=== PATIENT | female | born 1960 | race Caucasian/White ===

== ENCOUNTER 2020-02-21 14:23 | Inpatient (IN) | payer OTHER ==
[2020-02-21 14:56] LABS: BASO % 0.5 % (0-2.0); EOS % 0.2 % (0-4.5); HEMATOCRIT 43.3 % (32.4-45.2); HEMOGLOBIN 14.2 GM/dL (10.7-15.3); LYMPH % 17.2 % (8-40); MCH 28.2 pg (25.7-33.7); MCHC 32.9 g/dl (32.0-36.0); MEAN CELL VOLUME 85.6 fl (80-96); MEAN PLT VOLUME 8.9 fl (7.5-11.1); NEUT % 77.1 % (42.8-82.8); PLATELET COUNT 309 K/MM3 (134-434); RBC 5.05 M/mm3 (3.60-5.2); RDW 14.2 % (11.6-15.6)
[2020-02-21] MEDS ORDERED: METOCLOPRAMIDE HCL INJECTION 10 MG/2 ML VIAL IVPUSH ONE (15:01)
[2020-02-21] MEDS ORDERED: MECLIZINE HCL 25 MG TABLET (FP) PO ONE (15:02)
[2020-02-21] MEDS ORDERED: ASPIRIN 81 MG CHEWABLE TABLETS PO ONE (15:03)
[2020-02-21 15:05] LABS: INR 1.05 (0.83-1.09); PROTHROMBIN TIME (PATIENT) 12.4 SEC (9.7-13.0)
[2020-02-21] MEDS ORDERED: MECLIZINE HCL 25 MG TABLET (FP) ONE (15:08)
[2020-02-21] MEDS ORDERED: ASPIRIN 81 MG CHEWABLE TABLETS ONE (15:08)
[2020-02-21] MEDS ORDERED: METOCLOPRAMIDE HCL INJECTION 10 MG/2 ML VIAL ONE (15:08)
[2020-02-21] MEDS ORDERED: SODIUM CHLORIDE 1,000 ML IV SCH (15:15)
[2020-02-21 15:31] LABS: ALBUMIN 4.2 g/dl (3.4-5.0); ALK PHOS 56 U/L (45-117); ANION GAP 10 MMOL/L (8-16); BILIRUBIN,TOTAL 0.5 mg/dL (0.2-1); BLOOD UREA NITROGEN 15.5 mg/dL (7-18); CALCIUM 10.3 mg/dL (8.5-10.1); CHLORIDE 99 mmol/L (98-107); CO2 28 mmol/L (21-32); CREATININE 0.6 mg/dL (0.55-1.3); GLUCOSE,RANDOM 229 mg/dL (74-106); POTASSIUM 3.8 mmol/L (3.5-5.1); SGOT/AST 22 U/L (15-37); SGPT/ALT 22 U/L (13-61); SODIUM 138 mmol/L (136-145); TOT PROT 7.8 g/dl (6.4-8.2)
[2020-02-21 15:33] LABS: CHOLESTEROL 120 mg/dL (50-200); HDL CHOLESTEROL 58 mg/dL (40-60); LDL CHOLESTEROL (ONLY SJRH) 51 mg/dL (5-100); TRIGLYCERIDES 77 mg/dL (0-150)
[2020-02-21 15:41] LABS: ANISOCYTOSIS 0; MACROCYTOSIS 0; PLATELET ESTIMATE NORMAL
--- NOTE | 2020-02-21 15:42 | PDOC ---
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 Pt is accompanied by her son, who states the pt complained of vertigo last night starting around 7 pm. She did not improve, and the son noticed L-sided facial drooping today, prompting call to EMS. Pt recently had a CVA and was admitted to [facility] without intervention, and stayed in rehab for a few months. ROS is limited due to physical condition, but pt denies cough, vomiting, diarrhea, syncope, chest pain. Allergies: NKDA PCP: [facility] clinic Social: Pt denies any cigarette, alcohol, or drug use. No recent travel or known sick contacts. Pt tested antibody covid+ last month per son, but was asymptomatic. Surgical: no relevant history. Family: no relevant history. 02/21/20 18:25 02/21/20 18:56 <Anh Dunn - Last Filed: 02/21/20 19:05> <Ely Lovell - Last Filed: 02/24/20 10:01> - General Chief Complaint: CVA/TIA Stated Complaint: SLURRED SPEECH Time Seen by Provider: 02/21/20 14:36 Past History - Travel History Traveled outside of the country in the last 30 days: No Close contact w/someone who was outside of country & ill: No - Medical History COPD: No Diabetes: Yes Psychiatric Problems: (dementia?) - Reproductive History Is Patient Now?: No - Psycho-Social/Smoking History Smoking History: Never smoked - Substance Abuse Hx (Audit-C & DAST Scrn) How often the patient has a drink containing alcohol: Never Score: In Men: 4 or > Positive; In Women: 3 or > Positive: 0 Screen Result (Pos requires Nsg. Audit-10AR): Negative In the last yr the pt used illegal drug/Rx for NonMed reason: No Score: Yes response is considered Positive: 0 Screen Result (Positive result requires Nsg. DAST-10): Negative <Anh Dunn - Last Filed: 02/21/20 19:05> <Ely Lovell - Last Filed: 02/24/20 10:01> - Medical History Allergies/Adverse Reactions: Allergies Allergy/AdvReac Type Severity Reaction Status Date / Time No Known Allergies Allergy Verified 02/21/20 15:05 Home Medications: Ambulatory Orders Aspirin [ASA -] 81 mg PO DAILY 02/21/20 Atorvastatin Ca [Lipitor] 40 mg PO HS 02/21/20 Benztropine Mesylate 0.5 mg PO DAILY 02/21/20 Clopidogrel Bisulfate [Plavix -] 75 mg PO DAILY 02/21/20 Dapagliflozin Propanediol [Farxiga] 10 mg PO DAILY 02/21/20 Insulin Degludec [Tresiba Flextouch U-200] 40 unit SQ DAILY 02/21/20 Lisinopril/Hydrochlorothiazide [Lisinopril-Hctz 20-25 mg Tab] 1 each PO DAILY 02/21/20 Risperidone 3 mg PO DAILY 02/21/20 Sertraline HCl 50 mg PO DAILY 02/21/20 Sitagliptin Phos/Metformin HCl [Janumet 50-1,000 mg Tablet] 1 each PO BID 02/21/20 Neuro Specific PMHX - Complaint Specific PMHX Glaucoma: No Herniated Disk: No Laminectomy: No Migraine: No Multiple Sclerosis: No Neuropathy: No TIA: Yes (CVA) <Anh Dunn - Last Filed: 02/21/20 19:05> Review of Systems - Review of Systems Able to Perform ROS?: No (clinical condition) Is the patient limited Irish proficient: No <MonaAnh - Last Filed: 02/21/20 19:05> *Physical Exam - Vital Signs Last Vital Signs Temp Pulse Resp BP Pulse Ox 98.4 F 80 16 117/43 L 100 02/21/20 15:02 02/21/20 15:02 02/21/20 15:02 02/21/20 15:02 02/21/20 15:02 - Physical Exam Vitals stable, pt afebrile. Pt in NAD, normal body habitus. Pt alert and oriented x3. L sided lower facial drooping (sparing eyes). R arm pronator drift. Muscular strength intact in all extremities. No uvular or tongue deviation. Horizontal and vertical nystagmus present b/l eyes. No inattention/neglect, no visual field deficits. No midline spinal tenderness, step-offs, or crepitus. Head normocephalic, atraumatic. Eyes PERRLA, EOMI. Oropharynx without erythema or exudates, no LAD b/l. No nasal congestion. Hearing intact. Clear heart sounds, S1/S2, no JVD, b/l pedal edema, or heart murmur. Clear lung sounds, no respiratory distress, wheezes, crackles, or accessory muscle use. No abdominal or CVA tenderness to palpation, no rebound, no guarding. Abdomen soft, non-distended, and with normoactive bowel sounds. Skin without jaundice or rash. 02/21/20 18:57 <Anh Dunn - Last Filed: 02/21/20 19:05> - Vital Signs Last Vital Signs Temp Pulse Resp BP Pulse Ox 98 F 69 17 146/78 95 02/24/20 06:59 02/24/20 06:59 02/24/20 06:59 02/24/20 06:59 02/24/20 06:00 <Ely Lovell - Last Filed: 02/24/20 10:01> NIH Stroke Scale - Last Known Well Date/Time & Onset Date Last Known Well: 02/20/20 Time Last Known Well: 19:00 - Initial Evaluation Level of consciousness: Alert Ask patient the month and their age: Answers both correctly Ask patient to open & close eyes; make fist and let go: Obeys both correctly Best gaze (horizontal eye movement): Normal Visual field testing: No visual field loss Facial paresis (Show teeth/raise eyebrows/close eyes tight): Partial paralysis (total or near paralysis of lower face) Motor Function: Left Arm: Normal Motor Function: Right Arm: Drift Motor Function: Left Leg: Normal (extends leg 30 degrees for 5 seconds without drift) Motor Function: Right Leg: Normal (extends leg 30 degrees for 5 seconds without drift) Limb Ataxia: No ataxia Sensory(Use pinprick test arms,legs,trunk,face/side to side): Normal Best language (Describe picture, name items, read sentences): No Aphasia Dysarthria (read several words): Mild to moderate slurring of words Extinction and Inattention: No abnormality - Total Score NIH Stroke Scale Score: 4 <Anh Dunn - Last Filed: 02/21/20 19:05> tPA Exclusion Checklist 0-3hr - Time Elapsed Date last known well: 02/20/20 Time last known well: 19:00 Elaspsed time: 1 Day(s) and 0 Hour(s) and 5 Minutes - Thrombolytic Therapy Candidate Is the patient eligible for Thrombolytic Therapy?: No - Exclusion Criteria 0-3hr SBP greater than 185 or DBP greater than 110mmHg despite tx: No Recent IC/spinal surgery,head trauma or stroke w/in last 3mo: No Hx of previous IC hemorrhage, IC neoplasm, AVM or aneurysm: No Active internal bleeding: No Blding diathesis(low plt ct, inc PTT,INR>1.7 or use of NOAC): Yes Symptoms suggest subarachnoid hemorrhage: No CT demonstrates multilobar infarct(>1/3 cerebral hemiphere): No Arterial puncture at noncompressible site in previous 7 days: No Blood glucose concentration less than 50mg/dL (2.7mmol/L): No - Relative Exclusion Criteria 0-3h Care team unable to determine eligibility: No IV/IA thrombolysis/thrombectomy @ another hosp prior arrival: No Life expectancy <1yr/severe co-morbid illness/MEETING SPECIALIST on admit: No : No Patient/family refused: No Stroke severity too mild (non-disabling): No Recent acute WA (w/in previous 3 months): No Seizure at onset with postictal residual neuro impairments: No Major surgery or serious trauma w/in previous 14 days: No Recent GI or hemorrhage (w/in previous 21 days): No - Ineligibility reason(s) Reasons No tPA given: Outside of window - delayed arrival, See reason(s) noted above <Anh Dunn - Last Filed: 02/21/20 19:05> Critical Care Time/MDM Note Total Critical Care Time: 35 Critical Care Statement: The care of this patient involved high complexity decision making to prevent further life threatening deterioration of the patient's condition and/or to evaluate & treat vital organ system(s) failure or risk of failure. - Medical Decision Making Note: Pt was seen at bedside, also will be seen by attending Dr. Lovell. Pt presenting with nystagmus, vertigo, acute FNDs, concerning for brainstem/cerebellar CVA. Bedside BGM 200s CBC, CMP, cardiac work-up, lipid profile, non-contrast CT head Provided IV reglan, normal saline 45 cc/hr, 50 mg PO meclizine for improvement of vertigo. Will continue to reassess pt and monitor for symptomatic improvement. ECG: NSR, intervals WNL. No TWIs or significant ST segment changes. No significant changes from prior ECG. 02/21/20 18:58 CBC with elevated WBC (reactive?) CMP WNL Trop <.02 with no new EKG abnormalities Chest x-ray with no acute pathology UA appears contaminated, no nitrites or LE consistent with UTI CT head without acute pathology Discussed case with Neurology (Dr. Orozco). Pt took home meds this AM (plavix, statin), provided full dose of aspirin. Dr. Orozco will see pt inpatient. Suggested CTA of brain and neck. Pending CTA reads. Pt admitted to hospitalist service. 02/21/20 19:01 Signed out f/u results with Dr. Cleveland (night team) 02/21/20 19:05 <Anh Dunn - Last Filed: 02/21/20 19:05> Discharge - Discharge Information Problems reviewed: Yes - Admission Yes <Anh Dunn - Last Filed: 02/21/20 19:05> <Ely Lovell - Last Filed: 02/24/20 10:01> - Discharge Information Clinical Impression/Diagnosis: Cerebrovascular accident (CVA) Qualifiers: CVA mechanism: unspecified Qualified Code(s): I63.9 - Cerebral infarction, unspecified Condition: Guarded
--- NOTE | 2020-02-21 16:28 | PDOC ---
Documentation entered by Kate Sanders SCRIBE, acting as scribe for Ely Lovell MD. Ely Lovell MD: This documentation has been prepared by the amritibeTommy Ana, SCRIBE, under my direction and personally reviewed by me in its entirety. I confirm that the documentation accurately reflects all work, treatment, procedures, and medical decision making performed by me. Attending Attestation - Resident Resident Name: Anh Dunn - ED Attending Attestation I have performed the following: I have examined & evaluated the patient, The case was reviewed & discussed with the resident, I agree w/resident's findings & plan, Exceptions are as noted - HPI HPI: 02/21/20 15:17 Patient is a 59 year old female with a significant past medical history of diabetes and hypertension who presents to the ED with dizziness since 7PM last night a/w n/v. Denies any preceding trauma. As per son, facial droop began this morning. Denies infectious complaints. As per son, patient had CVA a few months ago with some residual R sided weakness and at that time she had a facial droop that was worse that it currently is but at baseline patient does not have a droop and had resolved after her prior CVA. Allergies: NKDA - Physicial Exam PE: 02/21/20 15:20 General: non-toxic appearing HEENT: NCAT Neuro: L facial droop, strength 4/5 RUE, +horizontal and vertical nystagmus - Critical Care Time Total Critical Care Time: 30 Critical Care Statement: The care of this patient involved high complexity decis ion making to prevent further life threatening deterioration of the patient's condition and/or to evaluate & treat vital organ system(s) failure or risk of failure. - Medical Decision Making 02/21/20 15:29 59 yo F concern for posterior circulation CVA, patient outside TPA window as last known well was last night. Plan: -labs -cxr -CT head code chambers, no evidence of hemorrhage or infarct -CTA head and neck -pt to be seen by neurology as inpatient, case discussed with neurology watermelon inspector -admit This clinical encounter is taking place during a federal and state health care emergency attributable to the novel [place] Virus pandemic. The [employer] of the Department of Health and Human Services has declared, pursuant to the Public Health Service Act 319F-3 (42 U.S.C. 247d-6d), that a covered persons activities related to medical countermeasures against COVID-19 will be immune from liability under Federal and State law. Discharge - Discharge Information Problems reviewed: Yes Clinical Impression/Diagnosis: Cerebrovascular accident (CVA) Qualifiers: CVA mechanism: unspecified Qualified Code(s): I63.9 - Cerebral infarction, unspecified - Follow up/Referral - Patient Discharge Instructions - Post Discharge Activity
[2020-02-21 16:43] LABS: EPI CELLS >36 /uL (0-25.1); HYALINE CASTS 1 /uL (0-3.1); PH,URINE 6.5 (5.0-8.0); URINE APPEARANCE CLEAR; URINE BACTERIA 1125 /uL (0-1359); URINE BILIRUBIN NEGATIVE (NEGATIVE); URINE COLOR YELLOW; URINE GLUCOSE (UA) 3+ (NEGATIVE); URINE KETONE TRACE (NEGATIVE); URINE LEUK ESTERASE TRACE (NEGATIVE); URINE NITRITE NEGATIVE (NEGATIVE); URINE PROTEIN NEGATIVE (NEGATIVE); URINE RBC 5 /uL (0-23.9); URINE UROBILINOGEN 0.2 mg/dL (0.2-1.0); URINE WBC 72 /uL (0-25.8)
[2020-02-21] MEDS ORDERED: ACETAMINOPHEN 325 MG TABLET (FP) PO PRN (16:54)
--- NOTE | 2020-02-21 17:12 | HP ---
CHIEF COMPLAINT: left facial droop, dizziness PCP: [facility] HISTORY OF PRESENT ILLNESS: 59 year old female with a significant past medical history of diabetes, htn, previous cva a couple months ago presented to the ED this morning after son noted a left facial droop. He reported pt having dizziness last night which didnt resolve this am. Denies any preceding trauma, no falls. As per chart, pt's son reported some residual right sided weakness after her last stroke. No cp, sob, n/v/f/c; had some nausea/vomiting with dizziness this am Denies any fevers, chills, cough or sob ER course was notable for: (1) Pos vertical nystagmus (2) Pos dizziness (3) Pos wbc 21k Recent Travel: Denies PAST MEDICAL HISTORY: as above, ?psych hx PAST SURGICAL HISTORY: denies Social History: Smoking: denies Alcohol: denies Drugs: denies Allergies No Known Allergies Allergy (Verified 02/21/20 15:05) HOME MEDICATIONS: Home Medications Medication Instructions Recorded Aspirin [ASA -] 81 mg PO DAILY 02/21/20 Atorvastatin Ca [Lipitor] 40 mg PO HS 02/21/20 Benztropine Mesylate 0.5 mg PO DAILY 02/21/20 Clopidogrel Bisulfate [Plavix -] 75 mg PO DAILY 02/21/20 Dapagliflozin Propanediol [Farxiga] 10 mg PO DAILY 02/21/20 Insulin Degludec [Tresiba 40 unit SQ DAILY 02/21/20 Flextouch U-200] Lisinopril/Hydrochlorothiazide 1 each PO DAILY 02/21/20 [Lisinopril-Hctz 20-25 mg Tab] Risperidone 3 mg PO DAILY 02/21/20 Sertraline HCl 50 mg PO DAILY 02/21/20 Sitagliptin Phos/Metformin HCl 1 each PO BID 02/21/20 [Janumet 50-1,000 mg Tablet] REVIEW OF SYSTEMS CONSTITUTIONAL: Absent: fever, chills, diaphoresis, generalized weakness, malaise, loss of appetite, weight change POS DIZZINESS HEENT: Absent: rhinorrhea, nasal congestion, throat pain, throat swelling, difficulty swallowing, mouth swelling, ear pain, eye pain, visual changes POS FACIAL CHANGES CARDIOVASCULAR: Absent: chest pain, syncope, palpitations, irregular heart rate, lightheadedness, peripheral edema RESPIRATORY: Absent: cough, shortness of breath, dyspnea with exertion, orthopnea, wheezing, stridor, hemoptysis GASTROINTESTINAL: Absent: abdominal pain, abdominal distension, nausea, vomiting, diarrhea, constipation, melena, hematochezia GENITOURINARY: Absent: dysuria, frequency, urgency, hesitancy, hematuria, flank pain, genital pain MUSCULOSKELETAL: Absent: myalgia, arthralgia, joint swelling, back pain, neck pain SKIN: Absent: rash, itching, pallor HEMATOLOGIC/IMMUNOLOGIC: Absent: easy bleeding, easy bruising, lymphadenopathy, frequent infections ENDOCRINE: Absent: unexplained weight gain, unexplained weight loss, heat intolerance, cold intolerance NEUROLOGIC: Absent: headache, focal weakness or paresthesias, POS dizziness, ABSENT unsteady gait, seizure, mental status changes, bladder or bowel incontinence PSYCHIATRIC: Absent: anxiety, depression, suicidal or homicidal ideation, hallucinations. PHYSICAL EXAMINATION Vital Signs - 24 hr 02/21/20 15:02 Temperature 98.4 F Pulse Rate 80 Respiratory 16 Rate Blood Pressure 117/43 L O2 Sat by Pulse 100 Oximetry (%) GENERAL: Awake, alert, and OREIENTED X 2, FORGOT YEAR in no acute distress., HEAD: Normal with no signs of trauma. EYES: Pupils equal, round and reactive to light, extraocular movements intact, sclera anicteric, conjunctiva clear. No lid lag. POS HORIZONTAL AND VERTICAL NYSTAGMUS EARS, NOSE, THROAT: Ears normal, nares patent, oropharynx clear without exudate s. Moist mucous membranes. NECK: Normal range of motion, supple without lymphadenopathy, JVD, or masses. LUNGS: Breath sounds equal, clear to auscultation bilaterally. No wheezes, and no crackles. No accessory muscle use. HEART: Regular rate and rhythm, normal S1 and S2 without murmur, rub or gallop. ABDOMEN: Soft, nontender, not distended, normoactive bowel sounds, no guarding, no rebound, no masses. No hepatomegaly or splenomegaly. MUSCULOSKELETAL: Normal range of motion at all joints. No bony deformities or tenderness. No CVA tenderness. UPPER EXTREMITIES: 2+ pulses, warm, well-perfused. No cyanosis. No clubbing. No peripheral edema. LOWER EXTREMITIES: 2+ pulses, warm, well-perfused. No calf tenderness. No peripheral edema. NEUROLOGICAL: POS NYSTAGMUS, POS PRONATOR DRIFT, POS LEFT FACIAL DROOP, GAIT NOT ASSESED PSYCHIATRIC: Cooperative. Good eye contact. Appropriate mood and affect. SKIN: Warm, dry, normal turgor, no rashes or lesions noted, normal capillary refill. Laboratory Results - last 24 hr 02/21/20 02/21/20 02/21/20 02:45 02:45 02:45 WBC 21.0 H RBC 5.05 Hgb 14.2 Hct 43.3 MCV 85.6 MCH 28.2 MCHC 32.9 RDW 14.2 Plt Count 309 MPV 8.9 Absolute Neuts (auto) 16.1 H Neutrophils % 77.1 Neutrophils % (Manual) 71.0 Band Neutrophils % 0.0 Lymphocytes % 17.2 D Lymphocytes % (Manual) 23.0 Monocytes % 5.0 Monocytes % (Manual) 3 L Eosinophils % 0.2 Eosinophils % (Manual) 0.0 Basophils % 0.5 Basophils % (Manual) 1.0 Myelocytes % (Man) 0 Promyelocytes % (Man) 0 Blast Cells % (Manual) 0 Nucleated RBC % 0 Metamyelocytes 1 Hypochromia 0 Platelet Estimate Normal Polychromasia 0 Poikilocytosis 0 Anisocytosis 0 Microcytosis 0 Macrocytosis 0 PT with INR 12.40 INR 1.05 PTT (Actin FS) 29.0 Sodium Potassium Chloride Carbon Dioxide Anion Gap BUN Creatinine Est GFR (CKD-EPI)AfAm Est GFR (CKD-EPI)NonAf POC Glucometer Random Glucose Calcium Total Bilirubin AST ALT Alkaline Phosphatase Total Protein Albumin Triglycerides 77 Cholesterol 120 Total LDL Cholesterol 51 HDL Cholesterol 58 Urine Color Urine Appearance Urine pH Ur Specific [place] Urine Protein Urine Glucose (UA) Urine Ketones Urine Blood Urine Nitrite Urine Bilirubin Urine Urobilinogen Ur Leukocyte Esterase Urine WBC (Auto) Urine RBC (Auto) Urine Casts (Auto) U Epithel Cells (Auto) Urine Bacteria (Auto) Blood Type Antibody Screen 02/21/20 02/21/20 02/21/20 02:45 02:45 04:16 WBC RBC Hgb Hct MCV MCH MCHC RDW Plt Count MPV Absolute Neuts (auto) Neutrophils % Neutrophils % (Manual) Band Neutrophils % Lymphocytes % Lymphocytes % (Manual) Monocytes % Monocytes % (Manual) Eosinophils % Eosinophils % (Manual) Basophils % Basophils % (Manual) Myelocytes % (Man) Promyelocytes % (Man) Blast Cells % (Manual) Nucleated RBC % Metamyelocytes Hypochromia Platelet Estimate Polychromasia Poikilocytosis Anisocytosis Microcytosis Macrocytosis PT with INR INR PTT (Actin FS) Sodium 138 Potassium 3.8 Chloride 99 Carbon Dioxide 28 Anion Gap 10 BUN 15.5 Creatinine 0.6 Est GFR (CKD-EPI)AfAm 116.45 Est GFR (CKD-EPI)NonAf 100.47 POC Glucometer Random Glucose 229 H Calcium 10.3 H Total Bilirubin 0.5 AST 22 ALT 22 Alkaline Phosphatase 56 Total Protein 7.8 Albumin 4.2 Triglycerides Cholesterol Total LDL Cholesterol HDL Cholesterol Urine Color Yellow Urine Appearance Clear Urine pH 6.5 Ur Specific [place] 1.025 Urine Protein Negative Urine Glucose (UA) 3+ H Urine Ketones Trace H Urine Blood Negative Urine Nitrite Negative Urine Bilirubin Negative Urine Urobilinogen 0.2 Ur Leukocyte Esterase Trace Urine WBC (Auto) 72 Urine RBC (Auto) 5 Urine Casts (Auto) 1 U Epithel Cells (Auto) >36 Urine Bacteria (Auto) 1125 Blood Type O NEGATIVE Antibody Screen Negative 02/21/20 14:29 WBC RBC Hgb Hct MCV MCH MCHC RDW Plt Count MPV Absolute Neuts (auto) Neutrophils % Neutrophils % (Manual) Band Neutrophils % Lymphocytes % Lymphocytes % (Manual) Monocytes % Monocytes % (Manual) Eosinophils % Eosinophils % (Manual) Basophils % Basophils % (Manual) Myelocytes % (Man) Promyelocytes % (Man) Blast Cells % (Manual) Nucleated RBC % Metamyelocytes Hypochromia Platelet Estimate Polychromasia Poikilocytosis Anisocytosis Microcytosis Macrocytosis PT with INR INR PTT (Actin FS) Sodium Potassium Chloride Carbon Dioxide Anion Gap BUN Creatinine Est GFR (CKD-EPI)AfAm Est GFR (CKD-EPI)NonAf POC Glucometer 220 Random Glucose Calcium Total Bilirubin AST ALT Alkaline Phosphatase Total Protein Albumin Triglycerides Cholesterol Total LDL Cholesterol HDL Cholesterol Urine Color Urine Appearance Urine pH Ur Specific [place] Urine Protein Urine Glucose (UA) Urine Ketones Urine Blood Urine Nitrite Urine Bilirubin Urine Urobilinogen Ur Leukocyte Esterase Urine WBC (Auto) Urine RBC (Auto) Urine Casts (Auto) U Epithel Cells (Auto) Urine Bacteria (Auto) Blood Type Antibody Screen CT HEAD: NO ACUTE CHANGES LEFT THALAMIC INFARCT, CHRONIC CHRONIC LEFT OCCIPITAL INFARCT CXR: NAPD PER MY INTERPRETATION, FINAL READ PENDING HEAD AND NECK CTA PENDING EKG: NSR@81BPM ASSESSMENT/PLAN: 59 Y/O FEMALE WITH HTN, DM, CVA IN THE PAST ADMITTED WITH ACUTE CVA SYMPTOMS *ACUTE CVA -- OUT OF TPA WINDOW HAD SYMPTOMS SINCE LAST NIGHT LIKELY A POSTERIOR CIRCULATION INFARCT (DIZZINESS, VERTICAL NYSTAGMUS, DIZZINESS) - CHECK MRI BRAIN CT ANGIO PENDING CT HEAD WITHOUT ACUTE CHANGES WAS ALREADY ON PLAVIX AND STATIN, ADDED FULL DOSE ASA PER NEURO RECOMMENDATIONS SPEECH AND SWALLOW EVAL ADMIT TO TELE TO RULE OUT ARRHYTHMIA, EKG WAS NORMAL ASPIRATION AND FALL PRECAUTIONS ANTIEMETICS NEEDED NEURO CHECKS PHYSICAL THERAPY EVAL *HTN - BP ON THE LOW NORMAL SIDE WILL HOLD BP MEDS TO NOT DECREASE BP ACUTELY IN ACUTE CVA SETTING RESTART PRESSURE INCREASES *DM - WILL SWITCH TO LEVEMIR (ON TRESIBA AT HOME), BUT DECREASE DOSE SINCE NOT EATING MUCH CURRENTLY HOLD ORAL AGENTS BGMS WITH ISS *?BIPOLAR - ON ANTIPSYCHOTICS, WILL CONT FOR NOW, PLEASE VERIFY MEDS WITH FAMILY TOMORROW *LEUKOCYTOSIS - STRESS? INFECTION? NO CLEAR SYMPTOMS, BUT UA SLIGHTLY DIRTY START ON ROCEPHIN CHECK URINE CULTURE ?COVID, SWAB SENT OUT, CONT PRECAUTIONS UNTIL RESULTS BACK *DVT PROPHY - SQ HEPARIN, ADD PROTONIX FOR ULCER PROPHY DUE TO MULTIPLE ANTIPLATELET AGENTS FOR CVA O GENTLE HYDRATION DUE TO CONTRAST STUDY TODAY, AND NOT EATING MUCH PO -- PLEASE REASSESS IN AM FOR IVF NEED * Family Medical History Family Hx Diabetes: Father Family Hx Nuerologic Problems: Father (CVA) Problem List - Problem (1) Cerebrovascular accident (CVA) Code(s): I63.9 - CEREBRAL INFARCTION, UNSPECIFIED Qualifiers: CVA mechanism: unspecified Qualified Code(s): I63.9 - Cerebral infarction, unspecified (2) Hypertension Code(s): I10 - ESSENTIAL (PRIMARY) HYPERTENSION (3) Diabetes Code(s): E11.9 - TYPE 2 DIABETES MELLITUS WITHOUT COMPLICATIONS Qualifiers: Diabetes mellitus type: type 2 Visit type - Emergency Visit Emergency Visit: Yes ED Registration Date: 02/21/20 Care time: The patient presented to the Emergency Department on the above date and was hospitalized for further evaluation of their emergent condition. - New Patient This patient is new to me today: Yes Date on this admission: 02/21/20 - Critical Care Critical Care patient: No
[2020-02-21] MEDS ORDERED: PANTOPRAZOLE 40 MG TABLET ONE (17:22)
[2020-02-21] MEDS ORDERED: CEFTRIAXONE 1 GM/50 ML BAG ONE (17:23)
[2020-02-21] MEDS ORDERED: SERTRALINE HCL 50 MG TABLET (FP) ONE (17:23)
[2020-02-21] MEDS: SERTRALINE HCL 50 MG TABLET (FP) PO SCH (17:35)
[2020-02-21] MEDS: risperiDONE 1 MG TABLET PO SCH (17:35)
[2020-02-21] MEDS: PANTOPRAZOLE 40 MG TABLET PO SCH (17:35)
[2020-02-21] MEDS: CEFTRIAXONE 1 GM in DEXTROSE 5%-WATER - 50 ML IVPB SCH (17:35)
[2020-02-21] MEDS: BENZTROPINE MESYLATE 0.5 MG TABLET (FP) PO SCH (17:35)
--- NOTE | 2020-02-21 19:54 | CON.NEURO ---
Consult - Past Medical History ...LMP: 02/21/20 ...: No - Alcohol/Substance Use Hx Alcohol Use: No - Smoking History Smoking history: Never smoked Home Medications - Allergies Allergies/Adverse Reactions: Allergies Allergy/AdvReac Type Severity Reaction Status Date / Time No Known Allergies Allergy Verified 02/21/20 15:05 - Home Medications Home Medications: Ambulatory Orders Aspirin [ASA -] 81 mg PO DAILY 02/21/20 Atorvastatin Ca [Lipitor] 40 mg PO HS 02/21/20 Benztropine Mesylate 0.5 mg PO DAILY 02/21/20 Clopidogrel Bisulfate [Plavix -] 75 mg PO DAILY 02/21/20 Dapagliflozin Propanediol [Farxiga] 10 mg PO DAILY 02/21/20 Insulin Degludec [Tresiba Flextouch U-200] 40 unit SQ DAILY 02/21/20 Lisinopril/Hydrochlorothiazide [Lisinopril-Hctz 20-25 mg Tab] 1 each PO DAILY 02/21/20 Risperidone 3 mg PO DAILY 02/21/20 Sertraline HCl 50 mg PO DAILY 02/21/20 Sitagliptin Phos/Metformin HCl [Janumet 50-1,000 mg Tablet] 1 each PO BID 02/21/20 Physical Exam-Neuro Vital Signs: Vital Signs Temperature 98.5 F 02/21/20 19:22 Pulse Rate 84 02/21/20 19:22 Respiratory Rate 19 02/21/20 19:22 Blood Pressure 153/94 02/21/20 19:22 O2 Sat by Pulse Oximetry (%) 99 02/21/20 19:22 Labs: CBC, BMP 02/21/20 02:45 02/21/20 02:45 INR, PTT INR 1.05 (0.83-1.09) 02/21/20 02:45 Assessment/Plan cc Left facial palsy HPI 59 year old female history of stroke ( left occpital , 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 Patient is arleady on plavix and statin. She also have history of htn, hld [facility] for dizziness and facial droopiness. She describes dizziness as spinning sensation. Patent has ct head no acute findings. Ther eis left occipital infarct Allergies: NKDA Social: Pt denies any cigarette, alcohol, or drug use. No recent travel or known sick contacts. Pt tested antibody covid+ last month per son, but was asymptomatic. Surgical: no relevant history. Family: no relevant history. 0 Allergies/Adverse Reactions: Allergies Allergy/AdvReac Type Severity Reaction Status Date / Time No Known Allergies Allergy Verified 02/21/20 15:05 Home Medications: Aspirin [ASA -] 81 mg PO DAILY 02/21/20 Atorvastatin Ca [Lipitor] 40 mg PO HS 02/21/20 Benztropine Mesylate 0.5 mg PO DAILY 02/21/20 Clopidogrel Bisulfate [Plavix -] 75 mg PO DAILY 02/21/20 Dapagliflozin Propanediol [Farxiga] 10 mg PO DAILY 02/21/20 Insulin Degludec [Tresiba Flextouch U-200] 40 unit SQ DAILY 02/21/20 Lisinopril/Hydrochlorothiazide [Lisinopril-Hctz 20-25 mg Tab] 1 each PO DAILY 02/21/20 Risperidone 3 mg PO DAILY 02/21/20 Sertraline HCl 50 mg PO DAILY 02/21/20 Sitagliptin Phos/Metformin HCl [Janumet 50-1,000 mg Tablet] 1 each PO BID 02/21/20 ROS, FH, SH REVIEWED IN CHART neurological examination Alert oriented x 2, speech is normal, neck is supple vss eomi, pupil reactive , left facial droopiness ? lmn type there is mild right arm weakness sensation is normal reflex are normal bilaterally ct head old left occpital stroke mri of brain is pending cta of neck and brain is normal Assessment/Plan - Left facial droopiness ? new symptoms and right arm seems to be old. There is ? mild lmn type of facial weakness. Possiblity of vestibualr neurititis cant ruled out Plan:- mri of brain - contnue plavix and statin - pt - speech Meclizine prn Tigre guerrero so much Osman Orozco MD
[2020-02-21] MEDS ORDERED: INSULIN (LEVEMIR) 100 UNITS/ML UNITS SQ SCH (22:00)
[2020-02-22] MEDS: INSULIN (LEVEMIR) 100 UNITS/ML UNITS SQ SCH ×2 (01:00→22:08)
[2020-02-22] MEDS: HEPARIN NA (PORCINE) 5,000 UNITS/ML 1ML VIAL SQ SCH ×4 (01:00→22:08)
[2020-02-22] MEDS: ATORVASTATIN CA 40 MG TABLET (FP) PO SCH ×2 (01:01→22:08)
[2020-02-22] MEDS: INSULIN SLIDING SCALE (NOVOLOG) 1 VIAL SQ SCH ×5 (01:01→22:08)
[2020-02-22 07:41] LABS: BASO % 0.6 % (0-2.0); EOS % 0.9 % (0-4.5); HEMATOCRIT 35.2 % (32.4-45.2); HEMOGLOBIN 11.8 GM/dL (10.7-15.3); LYMPH % 37.9 % (8-40); MCH 28.3 pg (25.7-33.7); MCHC 33.6 g/dl (32.0-36.0); MEAN CELL VOLUME 84.2 fl (80-96); MEAN PLT VOLUME 8.6 fl (7.5-11.1); MONO % 7.6 % (3.8-10.2); PLATELET COUNT 262 K/MM3 (134-434); RBC 4.18 M/mm3 (3.60-5.2); RDW 14.2 % (11.6-15.6); WHITE BLOOD COUNT 12.9 K/mm3 (4.0-10.0)
[2020-02-22 08:01] LABS: ANION GAP 9 MMOL/L (8-16); BLOOD UREA NITROGEN 13.2 mg/dL (7-18); CALCIUM 9.1 mg/dL (8.5-10.1); CHLORIDE 102 mmol/L (98-107); CO2 29 mmol/L (21-32); CREATININE 0.4 mg/dL (0.55-1.3); GLUCOSE,RANDOM 135 mg/dL (74-106); MAGNESIUM 1.8 mg/dL (1.8-2.4); SODIUM 139 mmol/L (136-145)
[2020-02-22] MEDS ORDERED: DEXTROSE 5%-WATER - 50 ML IVPB ONE (09:05)
[2020-02-22] MEDS ORDERED: cefTRIAXone SODIUM 1 GM VIAL ONE (09:05)
--- NOTE | 2020-02-22 09:11 | PN ---
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, Physician - Current Medication List Current Medications: Active Medications Acetaminophen (Tylenol -) 650 mg PO Q6H PRN PRN Reason: FEVER Aspirin (Asa -) 325 mg PO DAILY [facility] Atorvastatin Calcium (Lipitor -) 40 mg PO HS [facility] Last Admin: 02/22/20 01:01 Dose: Not Given Documented by: Benztropine Mesylate (Cogentin -) 0.5 mg PO DAILY [facility] Last Admin: 02/21/20 17:35 Dose: 0.5 mg Documented by: Clopidogrel Bisulfate (Plavix -) 75 mg PO DAILY [facility] Heparin Sodium (Porcine) (Heparin -) 5,000 unit SQ TID [facility] Last Admin: 02/22/20 05:10 Dose: 5,000 unit Documented by: Sodium Chloride (Normal Saline -) 1,000 mls @ 42 mls/hr IV ASDIR [facility] Last Admin: 02/21/20 15:24 Dose: 42 mls/hr Documented by: Ceftriaxone Sodium 1 gm/ (Dextrose) 50 mls @ 100 mls/hr IVPB DAILY [facility]; Protocol Last Admin: 02/21/20 17:35 Dose: 100 mls/hr Documented by: Insulin Aspart (Novolog Vial Sliding Scale -) 0 vial SQ ACHS [facility]; Protocol Last Admin: 02/22/20 06:50 Dose: Not Given Documented by: Insulin Detemir (Levemir Vial) 10 units SQ HS [facility] Last Admin: 02/22/20 01:00 Dose: Not Given Documented by: Pantoprazole Sodium (Protonix -) 40 mg PO DAILY [facility] Last Admin: 02/21/20 17:35 Dose: 40 mg Documented by: Risperidone (Risperdal -) 3 mg PO DAILY [facility] Last Admin: 02/21/20 17:35 Dose: 3 mg Documented by: Sertraline HCl (Zoloft -) 50 mg PO DAILY [facility] Last Admin: 02/21/20 17:35 Dose: 50 mg Documented by: - Objective Vital Signs: Vital Signs Temperature 98.0 F 02/22/20 01:49 Pulse Rate 69 02/22/20 05:00 Respiratory Rate 18 02/22/20 06:00 Blood Pressure 124/60 02/22/20 05:00 O2 Sat by Pulse Oximetry (%) 99 02/22/20 06:00 Cardiovascular: Yes: S1, S2 Respiratory: Yes: Regular, CTA Bilaterally Gastrointestinal: Yes: Normal Bowel Sounds, Soft. No: Tenderness Neurological: Yes: Alert, Facial Droop, Weakness Labs: CBC, BMP 02/22/20 05:55 02/22/20 05:55 INR, PTT INR 1.05 (0.83-1.09) 02/21/20 02:45 Problem List - Problems (1) Facial droop Assessment/Plan: r/o new cva mri neuro appreciated Code(s): R29.810 - FACIAL WEAKNESS (2) Cerebrovascular accident (CVA) Code(s): I63.9 - CEREBRAL INFARCTION, UNSPECIFIED Qualifiers: CVA mechanism: unspecified Qualified Code(s): I63.9 - Cerebral infarction, unspecified (3) Diabetes Assessment/Plan: bgm and monitor Code(s): E11.9 - TYPE 2 DIABETES MELLITUS WITHOUT COMPLICATIONS Qualifiers: Diabetes mellitus type: type 2 (4) Hypertension Assessment/Plan: monitor Vital Signs Period Temp Pulse Resp BP Sys/Gregory Pulse Ox Last 24 Hr 98.0 F-98.5 F 69-85 16-20 107-153/43-94 99-100 Code(s): I10 - ESSENTIAL (PRIMARY) HYPERTENSION (5) Electrolyte abnormality Assessment/Plan: replace Code(s): E87.8 - OTH DISORDERS OF ELECTROLYTE AND FLUID BALANCE, NEC
--- NOTE | 2020-02-22 09:16 | EKG ---
Test Reason : Blood Pressure : / mmHG Vent. Rate : 081 BPM Atrial Rate : 081 BPM P-R Int : 118 ms QRS Dur : 084 ms QT Int : 396 ms P-R-T Axes : 058 049 054 degrees QTc Int : 460 ms NORMAL SINUS RHYTHM NORMAL ECG NO PREVIOUS ECGS AVAILABLE Confirmed by Sandra Alcantara ([id number]) on 02/22/2020 9:16:30 AM Referred By: Confirmed By:Sandra Alcantara
[2020-02-22] MEDS: D5-1/2NS+20 MEQ KCL - 20 MEQ/1,000 ML INFUS.BAG IV SCH (09:31)
[2020-02-22] MEDS: CEFTRIAXONE 1 GM in DEXTROSE 5%-WATER - 50 ML IVPB SCH (09:32)
[2020-02-22] MEDS: SERTRALINE HCL 50 MG TABLET (FP) PO SCH (09:32)
[2020-02-22] MEDS: PANTOPRAZOLE 40 MG TABLET PO SCH (09:32)
[2020-02-22] MEDS: ASPIRIN 325 MG TABLET PO SCH (09:32)
[2020-02-22] MEDS: KCL 10 MEQ IVPB 10 MEQ/100 ML INFUS.BAG IVPB SCH ×2 (09:32→11:21)
[2020-02-22] MEDS: CLOPIDOGREL BISULFATE 75 MG TABLET (FP) PO SCH (09:32)
[2020-02-22] MEDS: risperiDONE 1 MG TABLET PO SCH (09:32)
--- NOTE | 2020-02-22 10:40 | CONSULT ---
Admitting History and Physical - Admission History of Present Illness: Per EMR- 59 yo F, with PMH of CVA (L occipital/SPINNER IRON 08/2019, on plavix and atorvastatin), NIDDM, HTN, HLD, psych hx(?), who is presenting via EMS from home for "dizziness and face drooping". Pt is accompanied by her son, who states the pt complained of vertigo last night starting around 7 pm. She did not improve, and the son noticed L-sided facial drooping today, prompting call to EMS. Pt recently had a CVA and was admitted to [facility] without intervention, and stayed in rehab for a few months. ct head old left occpital stroke mri of brain is pending cta of neck and brain is normal Selected Entries 02/22/20 02/22/20 02/22/20 01:49 05:00 09:00 Temperature 98.0 F 97.7 F Pulse Rate 69 69 77 Blood Pressure 107/61 124/60 112/52 L Laboratory Tests 02/21/20 02/22/20 02:45 05:55 WBC 21.0 H 12.9 H Laboratory Tests 02/21/20 03:19 COVID-19 ([facility]ERIE) Pending Laboratory Tests 02/21/20 03:19 COVID-19 ([facility]ERIE) Not detected Passed Dysphagia screen. NPO initially, then reg thin liquid ordered. Pending MRI History Source: Medical Record Limitations to Obtaining History: Clinical Condition (thinks she is in [place], 47 y.o) - Past Medical History ...LMP: 02/21/20 ...: No - Smoking History Smoking history: Never smoked Have you smoked in the past 12 months: No - Alcohol/Substance Use Hx Alcohol Use: No History - Admission Reason For Visit: CEREBROVASCULAR ACCIDENT - Diagnostics X-ray: Report Reviewed Other: Report Reviewed (ct head old left occpital stroke mri of brain is pending cta of neck and brain is normal) - General Mental Status: Alert and Oriented, Awake and Alert, Able to Follow Commands Attention: Intact Ability to Follow Directions: Good Head/Neck Control: Fair - Hearing Hearing: Functional Speech Evaluation - Communication Primary Language: KYRGYZ Communication: Yes: Simple Responses, Dysarthria Oral Expression Ability: Yes: Mild Impairment, Moderate Impairment - Speech Production Able to Make Needs Known: Yes: Mildly Impaired, Moderately Impaired Intelligibility: Yes: WNL, Mildly Impaired, Moderately Impaired - Speech Characteristics Voice Loudness: Mildly Soft/Quiet Voice Pitch: Yes: Pitch Breaks Voice Phonatory-based Quality: Yes: Dysphonia Speech Pattern: Impaired Speech Clarity: < 50% Articulation: Yes: Imprecise Rate of Speech: Too Slow Voice, Other Observations: Yes: Inadequate Breath Support - Language/Auditory Comprehension Follows: Yes: 1 Stage Simple Commands Observation: Able to respond to yes/no queries: Yes, Comprehends Conversational Speech: Yes - Language/Verbal Expression Functional Communication Status: Yes: Mildly Impaired, Moderately Impaired - Swallow Evaluation/Bedside Assessment Current Nutritional Intake: Regular, Thin Liquids Oral Secretions: Yes: WFL Facial Symmetry at Rest: Facial Droop Left (complete) Facial Symmetry on Retraction: Facial Droop Left Sensation: Reduced Left Against Resistance Opening: Weak Against Resistance Closing: Weak Pucker Lips: Droops Left Smile: Droops Left Lingual Movement: Deviates Left Lingual Speed of Movement: Reduced Lingual Movement Strgth Against Opposition: Reduced Laryngeal Elevation: Impaired Laryngeal Movement: Reduced Excursion, Labored,delay initiation, Reduced Velocity Needs Assistance: Yes Rate of Intake: WFL Bolus Size: WFL Labial Seal: Impaired Left Chewing: Impaired Oral Prep Time: Increased A-P Transit: Impaired Timing of Swallow: Delayed Coughing/Throat Clear: Yes (on thin liquid) Recommendations - Speech Evaluation, Impression/Plan Impression: Reviewed with nursing.Reg diet ordered. Dysarthric, left facial, cough response on thin liquid. Mild to moderate radha-pharyngeal dysphagia with aspiration atleast on thin liquid suspected - Disposition Discharge to: Rehabilitation Center - Dysphagia Impressions/Plan Swallowing Skills: Impaired Dysphagia Impressions: Mild Impairment, Moderate Impairment, Ongoing Evaluation, Suspect Aspiration *Silent aspiration: cannot be R/O at bedside Dysphagia Treatment Plan: Small Bites, Chin Tuck/Down, Clear Pocket Food, Trial Feedings, Safe Rate, 1/2 tsp. at a time, Elevate HOB during feed Recommendations: Neuro Consult (f/u. MRI pending), Modified Barium Swallow - Recommendations Diet Consistency: Dysphagia Minced Medication Administration: Crushed with applesauce Liquids: Pink Thick Supplement: Magic Cup, Ensure Pudding
--- NOTE | 2020-02-22 11:36 | EKG ---
Test Reason : Blood Pressure : / mmHG Vent. Rate : 082 BPM Atrial Rate : 082 BPM P-R Int : 118 ms QRS Dur : 088 ms QT Int : 446 ms P-R-T Axes : 052 020 041 degrees QTc Int : 521 ms SINUS RHYTHM WITH OCCASIONAL PREMATURE VENTRICULAR COMPLEXES NONSPECIFIC T WAVE ABNORMALITY PROLONGED QT ABNORMAL ECG WHEN COMPARED WITH ECG OF 21-FEB-2020 14:49, PREMATURE VENTRICULAR COMPLEXES ARE NOW PRESENT NONSPECIFIC T WAVE ABNORMALITY NOW EVIDENT IN ANTEROLATERAL LEADS QT HAS LENGTHENED Confirmed by Sandra Alcantara ([id number]) on 02/22/2020 11:35:49 AM Referred By: Confirmed By:Sandra Alcantara
[2020-02-22] MEDS: BENZTROPINE MESYLATE 0.5 MG TABLET (FP) PO SCH (13:34)
--- NOTE | 2020-02-22 18:40 | PN ---
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 Patient is arleady on plavix and statin. She also have history of htn, h[facility] for dizziness and facial droopiness. She describes dizziness as spinning sensation. Patent has ct head no acute findings. Ther eis left occipital infarct mri of brain showed left cerebellar peducnle stroke and right ica stenosis neurological examination Alert oriented x 2, speech is normal, neck is supple vss eomi, pupil reactive , left facial droopiness ? lmn type there is mild right arm weakness sensation is normal reflex are normal bilaterally ct head old left occpital stroke mri of brain showed there is left cerebellar peduncle ischemic lesion cta of neck showed there is right ica 70 percent stenosis Assessment/Plan -1. left cebellar acute stroke , also have history of left occpital stroke Plan:- vascular surgery consult for right ica stenosis - cardiac work up for cardiac source of stroke, would need loop monitoring - contnue plavix and statin - pt - speech consult appreciated would continue to follow Delmy guerrero so much Osman Orozco MD
[2020-02-22] MEDS ORDERED: INSULIN (LEVEMIR) 100 UNITS/ML UNITS SQ ONE (22:06)
[2020-02-22] MEDS ORDERED: INSULIN (NOVOLOG) ASPART 100 UNITS/ML 10ML VIAL ONE (22:06)
--- NOTE | 2020-02-22 23:14 | PN ---
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 (short form) - Note 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: Episodic Note: 02/21@11:10pm Called by RN patient was found on the floor after responding to a bed alarm. Chart reviewed. Patient was seen and examined at bedside. She denies any chest pain, shortness of breath, dizziness or generalized pain. It is unclear if she hit her head . She has no signs of active bleeding . She is on heparin sq and asa therapy. She is hemodynamicallystable ast this time. CT scan of head to exclude bleed has been ordered. Continue with safety measures - side rails up X4 and bed alarm on. Visit type - Emergency Visit Emergency Visit: Yes ED Registration Date: 02/21/20 Care time: The patient presented to the Emergency Department on the above date and was hospitalized for further evaluation of their emergent condition. - New Patient This patient is new to me today: Yes Date on this admission: 02/22/20 - Critical Care Critical Care patient: No
[2020-02-23] MEDS: HEPARIN NA (PORCINE) 5,000 UNITS/ML 1ML VIAL SQ SCH ×3 (07:10→21:35)
[2020-02-23] MEDS: INSULIN SLIDING SCALE (NOVOLOG) 1 VIAL SQ SCH ×4 (07:11→21:37)
[2020-02-23] MEDS ORDERED: cefTRIAXone SODIUM 1 GM VIAL ONE (10:06)
[2020-02-23] MEDS ORDERED: DEXTROSE 5%-WATER - 50 ML IVPB ONE (10:06)
[2020-02-23] MEDS ORDERED: PT OWN MED DRAWER 7, Y5N ONE (10:06)
[2020-02-23] MEDS: risperiDONE 1 MG TABLET PO SCH (10:13)
[2020-02-23] MEDS: SERTRALINE HCL 50 MG TABLET (FP) PO SCH (10:13)
[2020-02-23] MEDS: CEFTRIAXONE 1 GM in DEXTROSE 5%-WATER - 50 ML IVPB SCH (10:14)
[2020-02-23] MEDS: PANTOPRAZOLE 40 MG TABLET PO SCH (10:14)
[2020-02-23] MEDS: ASPIRIN 325 MG TABLET PO SCH (10:28)
--- NOTE | 2020-02-23 10:39 | PN ---
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, VICE PRESIDENT FOR INSTRUCTION - Note 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: ct head old left occpital stroke mri of brain showed there is left cerebellar peduncle ischemic lesion cta of neck showed there is right ica 70 percent stenosis vascular surgery consult for right ica stenosis Selected Entries 02/22/20 02/22/20 02/23/20 14:00 19:49 02:00 Breakfast Diet Tolerated Well Well Lunch 50% Supper 75% Temperature 99.3 F Blood Pressure 148/75 02/23/20 02/23/20 06:00 10:04 Breakfast 50% Diet Tolerated Well Lunch Supper Temperature 98.6 F Blood Pressure 125/77 Laboratory Tests 02/21/20 02/22/20 02:45 05:55 WBC 21.0 H 12.9 H On dys ground/nectar with signs of aspiration on thin liquid yesterday during bedside evaluation. Suggest mbs to r/o aspirastion, and provide most liberal diet pt can tolerate
[2020-02-23 11:01] VITALS: BMI 26.2
[2020-02-23] MEDS: BENZTROPINE MESYLATE 0.5 MG TABLET (FP) PO SCH (11:29)
--- NOTE | 2020-02-23 17:17 | PN ---
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, Physician Chief Complaint: CVA Uncontrolled diabetes mellitus Leukocytosis History of Present Illness: S/P fall last night Downstairs for repeat CT head - Current Medication List Current Medications: Active Medications Acetaminophen (Tylenol -) 650 mg PO Q6H PRN PRN Reason: FEVER Aspirin (Asa -) 325 mg PO DAILY [facility] Last Admin: 02/22/20 09:32 Dose: 325 mg Documented by: Atorvastatin Calcium (Lipitor -) 40 mg PO HS [facility] Last Admin: 02/22/20 22:08 Dose: 40 mg Documented by: Benztropine Mesylate (Cogentin -) 0.5 mg PO DAILY [facility] Last Admin: 02/23/20 11:29 Dose: 0.5 mg Documented by: Clopidogrel Bisulfate (Plavix -) 75 mg PO DAILY [facility] Last Admin: 02/22/20 09:32 Dose: 75 mg Documented by: Heparin Sodium (Porcine) (Heparin -) 5,000 unit SQ TID [facility] Last Admin: 02/23/20 07:10 Dose: Not Given Documented by: Ceftriaxone Sodium 1 gm/ (Dextrose) 50 mls @ 100 mls/hr IVPB DAILY [facility]; Protocol Last Admin: 02/23/20 10:14 Dose: 100 mls/hr Documented by: Potassium Chloride/Dextrose/Sod Cl (D5-1/2ns+20 Meq Kcl -) 20 meq in 1,000 mls @ 83 mls/hr IV ASDIR [facility] Last Admin: 02/22/20 09:31 Dose: 83 mls/hr Documented by: Insulin Aspart (Novolog Vial Sliding Scale -) 1 vial SQ ACHS [facility]; Protocol Last Admin: 02/23/20 12:58 Dose: Not Given Documented by: Insulin Detemir (Levemir Vial) 10 units SQ HS [facility] Last Admin: 02/22/20 22:08 Dose: 10 units Documented by: Pantoprazole Sodium (Protonix -) 40 mg PO DAILY [facility] Last Admin: 02/23/20 10:14 Dose: 40 mg Documented by: Risperidone (Risperdal -) 3 mg PO DAILY [facility] Last Admin: 02/23/20 10:13 Dose: 3 mg Documented by: Sertraline HCl (Zoloft -) 50 mg PO DAILY [facility] Last Admin: 02/23/20 10:13 Dose: 50 mg Documented by: - Objective Vital Signs: Vital Signs Temperature 98.1 F 02/23/20 14:59 Pulse Rate 82 02/23/20 14:59 Respiratory Rate 18 02/23/20 14:59 Blood Pressure 132/67 02/23/20 14:59 O2 Sat by Pulse Oximetry (%) 97 02/23/20 14:00 Labs: CBC, BMP 02/22/20 05:55 02/22/20 05:55 INR, PTT INR 1.05 (0.83-1.09) 02/21/20 02:45
[2020-02-23] MEDS: CLOPIDOGREL BISULFATE 75 MG TABLET (FP) PO SCH (18:30)
[2020-02-23 19:20] LABS: BASO % 0.5 % (0-2.0); HEMATOCRIT 35.2 % (32.4-45.2); HEMOGLOBIN 11.6 GM/dL (10.7-15.3); MCH 28.3 pg (25.7-33.7); MCHC 33.1 g/dl (32.0-36.0); MEAN CELL VOLUME 85.4 fl (80-96); MEAN PLT VOLUME 8.3 fl (7.5-11.1); MONO % 7.5 % (3.8-10.2); PLATELET COUNT 268 K/MM3 (134-434); RBC 4.12 M/mm3 (3.60-5.2); WHITE BLOOD COUNT 12.5 K/mm3 (4.0-10.0)
[2020-02-23] MEDS: D5-1/2NS+20 MEQ KCL - 20 MEQ/1,000 ML INFUS.BAG IV SCH (19:30)
[2020-02-23 19:48] LABS: ALBUMIN 3.5 g/dl (3.4-5.0); BILIRUBIN,TOTAL 0.3 mg/dL (0.2-1); BLOOD UREA NITROGEN 5.1 mg/dL (7-18); CALCIUM 9.3 mg/dL (8.5-10.1); CREATININE 0.5 mg/dL (0.55-1.3); POTASSIUM 3.5 mmol/L (3.5-5.1); TOT PROT 6.6 g/dl (6.4-8.2)
[2020-02-23] MEDS ORDERED: INSULIN (NOVOLOG) ASPART 100 UNITS/ML 10ML VIAL ONE (21:01)
[2020-02-23] MEDS: ATORVASTATIN CA 40 MG TABLET (FP) PO SCH (21:35)
[2020-02-23] MEDS: INSULIN (LEVEMIR) 100 UNITS/ML UNITS SQ SCH (21:37)
--- NOTE | 2020-02-23 22:59 | PN ---
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 Patient is arleady on plavix and statin. She also have history of htn, [facility] and facial droopiness. She describes dizziness as spinning sensation. Patent has ct head no acute findings. Ther eis left occipital infarct mri of brain showed left cerebellar peducnle stroke and right ica stenosis pateint fell down yesterday, and two ct scan is stable waiting for vascular surgery consult neurological examination Alert oriented x 2, speech is normal, neck is supple vss eomi, pupil reactive , left facial droopiness ? lmn type there is mild right arm weakness sensation is normal reflex are normal bilaterally ct head old left occpital stroke mri of brain showed there is left cerebellar peduncle ischemic lesion cta of neck showed there is right ica [address] head unremarkable, as patient has fall on february 21 Assessment/Plan -1. left cebellar acute stroke , also have history of left occpital stroke Plan:- vascular surgery consult for right ica stenosis - cardiac work up for cardiac source of stroke, would need loop monitoring - contnue plavix and statin - pt - speech consult appreciated would continue to follow Meclizine prn Tigre guerrero so much Osman Orozco MD
[2020-02-24] MEDS: HEPARIN NA (PORCINE) 5,000 UNITS/ML 1ML VIAL SQ SCH ×3 (06:50→21:58)
[2020-02-24] MEDS: INSULIN SLIDING SCALE (NOVOLOG) 1 VIAL SQ SCH ×4 (06:50→21:57)
--- NOTE | 2020-02-24 08:57 | PN ---
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, Physician - Current Medication List Current Medications: Active Medications Acetaminophen (Tylenol -) 650 mg PO Q6H PRN PRN Reason: FEVER Aspirin (Asa -) 325 mg PO DAILY [facility] Last Admin: 02/23/20 10:28 Dose: Not Given Documented by: Atorvastatin Calcium (Lipitor -) 40 mg PO HS [facility] Last Admin: 02/23/20 21:35 Dose: 40 mg Documented by: Benztropine Mesylate (Cogentin -) 0.5 mg PO DAILY [facility] Last Admin: 02/23/20 11:29 Dose: 0.5 mg Documented by: Clopidogrel Bisulfate (Plavix -) 75 mg PO DAILY [facility] Last Admin: 02/23/20 18:30 Dose: 75 mg Documented by: Heparin Sodium (Porcine) (Heparin -) 5,000 unit SQ TID [facility] Last Admin: 02/24/20 06:50 Dose: 5,000 unit Documented by: Ceftriaxone Sodium 1 gm/ (Dextrose) 50 mls @ 100 mls/hr IVPB DAILY [facility]; Protocol Last Admin: 02/23/20 10:14 Dose: 100 mls/hr Documented by: Potassium Chloride/Dextrose/Sod Cl (D5-1/2ns+20 Meq Kcl -) 20 meq in 1,000 mls @ 83 mls/hr IV ASDIR [facility] Last Admin: 02/23/20 19:30 Dose: 83 mls/hr Documented by: Insulin Aspart (Novolog Vial Sliding Scale -) 1 vial SQ ACHS [facility]; Protocol Last Admin: 02/24/20 06:50 Dose: 2 units Documented by: Insulin Detemir (Levemir Vial) 10 units SQ HS [facility] Last Admin: 02/23/20 21:37 Dose: 10 units Documented by: Pantoprazole Sodium (Protonix -) 40 mg PO DAILY [facility] Last Admin: 02/23/20 10:14 Dose: 40 mg Documented by: Risperidone (Risperdal -) 3 mg PO DAILY [facility] Last Admin: 02/23/20 10:13 Dose: 3 mg Documented by: Sertraline HCl (Zoloft -) 50 mg PO DAILY [facility] Last Admin: 02/23/20 10:13 Dose: 50 mg Documented by: - Objective Vital Signs: Vital Signs Temperature 98 F 02/24/20 06:59 Pulse Rate 69 02/24/20 06:59 Respiratory Rate 17 08/12/20 06:59 Blood Pressure 146/78 08/12/20 06:59 O2 Sat by Pulse Oximetry (%) 95 02/24/20 06:00 Cardiovascular: Yes: Regular Rate and Rhythm Respiratory: Yes: Regular, CTA Bilaterally Gastrointestinal: Yes: Normal Bowel Sounds, Soft Labs: CBC, BMP 02/23/20 18:40 02/23/20 18:40 INR, PTT INR 1.05 (0.83-1.09) 02/21/20 02:45 Problem List - Problems (1) Cerebrovascular accident (CVA) Assessment/Plan: ct head old left occpital stroke mri of brain showed there is left cerebellar peduncle ischemic lesion cta of neck showed there is right ica [address] head unremarkable, as patient has fall on february 21 Orders 02/22/20 10:00 Aspirin [ASA -] 325 mg PO DAILY Atorvastatin Ca [Lipitor -] 40 mg PO HS Clopidogrel Bisulfate [Plavix -] 75 mg PO DAILY Code(s): I63.9 - CEREBRAL INFARCTION, UNSPECIFIED Qualifiers: CVA mechanism: unspecified Qualified Code(s): I63.9 - Cerebral infarction, unspecified (2) Facial droop Assessment/Plan: r/o new cva mri noted --+ neuro appreciated Code(s): R29.810 - FACIAL WEAKNESS (3) Diabetes Assessment/Plan: bgm and monitor endo Code(s): E11.9 - TYPE 2 DIABETES MELLITUS WITHOUT COMPLICATIONS Qualifiers: Diabetes mellitus type: type 2 (4) Hypertension Assessment/Plan: monitor Vital Signs Period Temp Pulse Resp BP Sys/Gregory Pulse Ox Last 24 Hr 98.0 F-98.5 F 69-85 16-20 107-153/43-94 99-100 Code(s): I10 - ESSENTIAL (PRIMARY) HYPERTENSION (5) Electrolyte abnormality Assessment/Plan: replace Code(s): E87.8 - OTH DISORDERS OF ELECTROLYTE AND FLUID BALANCE, NEC (6) Carotid stenosis Assessment/Plan: Vascular Consult Code(s): I65.29 - OCCLUSION AND STENOSIS OF UNSPECIFIED CAROTID ARTERY
--- NOTE | 2020-02-24 09:26 | PN ---
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, CAR HIKER - Note 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: Selected Entries 02/23/20 02/23/20 02/23/20 00:45 02:00 02:45 Breakfast Diet Tolerated Supper Temperature 98.2 F 99.3 F 98.2 F Pulse Rate 82 82 82 Respiratory 18 20 20 Rate Respiratory Depth Respiratory Effort Blood Pressure 136/68 148/75 148/75 O2 Sat by Pulse 93 L Oximetry (%) Weight 02/23/20 02/23/20 02/23/20 04:45 06:00 06:45 Breakfast Diet Tolerated Supper Temperature 98.3 F 98.6 F 98.3 F Pulse Rate 80 80 80 Respiratory 20 20 20 Rate Respiratory Depth Respiratory Effort Blood Pressure 138/74 125/77 125/77 O2 Sat by Pulse 96 Oximetry (%) Weight 02/23/20 02/23/20 02/23/20 08:59 09:00 10:00 Breakfast Diet Tolerated Supper Temperature 98.1 F 98.1 F Pulse Rate 72 72 Respiratory 20 20 20 Rate Respiratory Normal Depth Respiratory Non-Labored Effort Blood Pressure 147/80 147/80 O2 Sat by Pulse 96 96 Oximetry (%) Weight 02/23/20 02/23/20 02/23/20 10:04 10:56 10:59 Breakfast 50% Diet Tolerated Well Supper Temperature 98.3 F Pulse Rate 81 Respiratory 20 Rate Respiratory Depth Respiratory Effort Blood Pressure 139/73 O2 Sat by Pulse Oximetry (%) Weight 134 lb 02/23/20 02/23/20 02/23/20 13:00 14:00 14:59 Breakfast Diet Tolerated Supper Temperature 98.1 F 98.1 F 98.1 F Pulse Rate 84 82 82 Respiratory 20 20 18 Rate Respiratory Depth Respiratory Effort Blood Pressure 132/67 132/67 132/67 O2 Sat by Pulse 97 97 Oximetry (%) Weight 02/23/20 02/23/20 02/23/20 16:59 18:00 21:00 Breakfast Diet Tolerated Poor Supper 25% Temperature 98.9 F 98.9 F Pulse Rate 79 79 Respiratory 18 20 Rate Respiratory Normal Depth Respiratory Non-Labored Effort Blood Pressure 143/76 141/78 O2 Sat by Pulse 95 Oximetry (%) Weight 02/23/20 02/23/20 02/24/20 22:00 22:59 02:00 Breakfast Diet Tolerated Supper Temperature 98.2 F 99.3 F 98 F Pulse Rate 76 70 76 Respiratory 17 17 18 Rate Respiratory Depth Respiratory Effort Blood Pressure 147/70 143/74 140/75 O2 Sat by Pulse 95 Oximetry (%) Weight 02/24/20 02/24/20 02/24/20 02:59 06:00 06:59 Breakfast Diet Tolerated Supper Temperature 98 F 98 F 98 F Pulse Rate 76 69 69 Respiratory 18 17 17 Rate Respiratory Depth Respiratory Effort Blood Pressure 140/75 146/78 146/78 O2 Sat by Pulse 95 Oximetry (%) Weight Laboratory Tests 02/21/20 02/22/20 02/23/20 02:45 05:55 18:40 WBC 21.0 H 12.9 H 12.5 H Please refer to MBS results, recommendations. Pt is at risk of aspiration, dehydration, malnutrition but hopefully swallowing will improve and pt will tolerate modified diet with modified diet and compensatory swallowing strategies. Pt/staff education regarding swallowing function. Suggest Palliative care consult regarding end of life wishes/PEG if needed. Pt is full code Consider [facility] for acute rehab
[2020-02-24] MEDS ORDERED: cefTRIAXone SODIUM 1 GM VIAL ONE (09:48)
[2020-02-24] MEDS ORDERED: DEXTROSE 5%-WATER - 50 ML IVPB ONE (09:49)
[2020-02-24] MEDS: ASPIRIN 325 MG TABLET PO SCH (09:57)
[2020-02-24] MEDS: BENZTROPINE MESYLATE 0.5 MG TABLET (FP) PO SCH (09:57)
[2020-02-24] MEDS: risperiDONE 1 MG TABLET PO SCH (09:57)
[2020-02-24] MEDS: CEFTRIAXONE 1 GM in DEXTROSE 5%-WATER - 50 ML IVPB SCH (09:57)
[2020-02-24] MEDS: SERTRALINE HCL 50 MG TABLET (FP) PO SCH (09:57)
[2020-02-24] MEDS: CLOPIDOGREL BISULFATE 75 MG TABLET (FP) PO SCH (09:57)
[2020-02-24] MEDS: D5-1/2NS+20 MEQ KCL - 20 MEQ/1,000 ML INFUS.BAG IV SCH (09:58)
[2020-02-24] MEDS: PANTOPRAZOLE 40 MG TABLET PO SCH (10:09)
[2020-02-24] MEDS ORDERED: POTASSIUM CHLORIDE TABS 10 MEQ TABLET.ER (FP) PO ONE (10:56)
--- NOTE | 2020-02-24 11:04 | CON.CARD ---
Consult Consult Specialty:: Cardiology Referred by:: Fredy Reason for Consultation:: cva - History of Present Illness Chief Complaint: dizziness and facial droop History of Present Illness: 59 year old with a pmhx of cva (left occipital and left carroter), htn, and hld admitted with dizziness and facial droop. CT head no acute findings. MRI with acute left cerebellar peduncle stroke and R ICA stenosis noted. No chestpain, sob, or palpitations noted. C/o dizziness. 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 Cardio/Vascular: Yes: HTN, Hyperlipdemia ...LMP: 02/21/20 ...: No - Alcohol/Substance Use Hx Alcohol Use: No - Smoking History Smoking history: Never smoked Have you smoked in the past 12 months: No Home Medications - Allergies Allergies/Adverse Reactions: Allergies Allergy/AdvReac Type Severity Reaction Status Date / Time No Known Allergies Allergy Verified 02/21/20 15:05 - Home Medications Home Medications: Ambulatory Orders Aspirin [ASA -] 81 mg PO DAILY 02/21/20 Atorvastatin Ca [Lipitor] 40 mg PO HS 02/21/20 Benztropine Mesylate 0.5 mg PO DAILY 02/21/20 Clopidogrel Bisulfate [Plavix -] 75 mg PO DAILY 02/21/20 Dapagliflozin Propanediol [Farxiga] 10 mg PO DAILY 02/21/20 Insulin Degludec [Tresiba Flextouch U-200] 40 unit SQ DAILY 02/21/20 Lisinopril/Hydrochlorothiazide [Lisinopril-Hctz 20-25 mg Tab] 1 each PO DAILY 02/21/20 Risperidone 3 mg PO DAILY 02/21/20 Sertraline HCl 50 mg PO DAILY 02/21/20 Sitagliptin Phos/Metformin HCl [Janumet 50-1,000 mg Tablet] 1 each PO BID 02/21/20 Vital Signs: Vital Signs Temperature 98 F 02/24/20 06:59 Pulse Rate 69 02/24/20 06:59 Respiratory Rate 17 02/24/20 06:59 Blood Pressure 146/78 02/24/20 06:59 O2 Sat by Pulse Oximetry (%) 95 02/24/20 06:00 Constitutional: Yes: No Distress Neck: Yes: Supple Respiratory: Yes: CTA Bilaterally Gastrointestinal: Yes: Soft Cardiovascular: Yes: Regular Rate and Rhythm JVD: No Carotid Bruit: No PMI: Non-Displaced Heart Sounds: Yes: S1, S2 Murmur: No: Systolic Murmur Edema: No - Other Data Labs, Other Data: CBC, BMP 02/23/20 18:40 02/23/20 18:40 INR, PTT INR 1.05 (0.83-1.09) 02/21/20 02:45 Imaging - Results Chest X-ray: Report Reviewed EKG: Image Reviewed Assessment/Plan 59 year old with a pmhx of cva (left occipital and left carroter), htn, and hld admitted with dizziness and facial droop. CT head no acute findings. MRI with acute left cerebellar peduncle stroke and R ICA stenosis noted. No chestpain, sob, or palpitations noted. C/o dizziness. Tele: sinus EKG: sinus rhythm, pvc, nonspecific T wave abnormalities 1) CVA -Seen by neuro Pending vascular eval for R ICA stenosis -Aspirin/plavix/statin BP control -Plan for echocardiogram -Multiple strokes. acute cva in left cerebellar area. Spoke to family and they are aware that I am contacting Dr. Rivas to evaluate for loop recorder placement.
[2020-02-24] MEDS: LISINOPRIL 10 MG TABLET (FP) PO SCH (15:01)
--- NOTE | 2020-02-24 17:05 | CON.PSY ---
Psychiatry Consult Chief Complaint: 59 Diamond old female with a history of CVA, Depression and ? Psychosis. On Risperidal 3 mg po daily.. She has facilal droop and Flat affect probably from Risperidal. Ulicesmt is not displaying any acute Psych symptoms... Symptoms: reports: Depressed Mood - Previous Psychiatric Treatment Outpatient: More than 6 mos ago Inpatient: None - Previous Substance Abuse Treatment Outpatient: None Inpatient: None - Reason for Previous Treatment Reason for Previous Treatment: Major Depression - Current Medications Current Medications: Active Medications Acetaminophen (Tylenol -) 650 mg PO Q6H PRN PRN Reason: FEVER Aspirin (Asa -) 325 mg PO DAILY [facility] Last Admin: 02/24/20 09:57 Dose: 325 mg Documented by: Atorvastatin Calcium (Lipitor -) 40 mg PO HS [facility] Last Admin: 02/23/20 21:35 Dose: 40 mg Documented by: Benztropine Mesylate (Cogentin -) 0.5 mg PO DAILY [facility] Last Admin: 02/24/20 09:57 Dose: 0.5 mg Documented by: Clopidogrel Bisulfate (Plavix -) 75 mg PO DAILY [facility] Last Admin: 02/24/20 09:57 Dose: 75 mg Documented by: Heparin Sodium (Porcine) (Heparin -) 5,000 unit SQ TID [facility] Last Admin: 02/24/20 15:01 Dose: 5,000 unit Documented by: Insulin Aspart (Novolog Vial Sliding Scale -) 1 vial SQ [facility]; Protocol Last Admin: 02/24/20 12:10 Dose: Not Given Documented by: Insulin Detemir (Levemir Vial) 10 units SQ HS [facility] Last Admin: 02/23/20 21:37 Dose: 10 units Documented by: Lisinopril (Prinivil) 10 mg PO DAILY [facility] Last Admin: 02/24/20 15:01 Dose: 10 mg Documented by: Pantoprazole Sodium (Protonix -) 40 mg PO DAILY [facility] Last Admin: 02/24/20 10:09 Dose: 40 mg Documented by: Sertraline HCl (Zoloft -) 50 mg PO DAILY [facility] Last Admin: 02/24/20 09:57 Dose: 50 mg Documented by: - Allergies Allergies: Allergies Allergy/AdvReac Type Severity Reaction Status Date / Time No Known Allergies Allergy Verified 02/21/20 15:05 - Current Living Status Usual Living Arrangement: With Significant Other - Current Mental Status Evaluation Appearance: Disheveled Attitude: Guarded - Affect Affect: Constrictive Appropriateness: Not Appropriate - Mood Mood: Depressed - Speech/Language Expressive: Delayed - Psychomotor Activity Psychomotor Activity: Slowed - Thought Process Thought Process: [place] - Thought Content Hallucinations: Absent Delusions: Absent - Self Perception Self Perception: No Impairment - Cognition Attention: Diminished Memory, Immediate Recall: Impaired Memory, Short Term: 1/3 Memory, Remote with Promptin/3 - Concentration Serial Sevens Intact: No Simple Calculations Intact: No - Abstraction Proverb Interpretation: Impaired Judgement: Minimally Impaired - Insight Insight: Impaired - Impulse Control Impulse Control: Good Control - Suicidal Ideation Suicidal Ideation: No - Homicidal Ideation Homicidal Ideation: No Assessment/Plan 1) d/c Risperdal , can be causing acute EPS with flat Parkinsonian features. 2) Renard ue with Zoloft. 3) will re eval as needed.
--- NOTE | 2020-02-24 17:45 | ECHO ---
Version: 1 Name: NICHOLAS WOODY Exam: Adult Echocardiogram Study Date: 02/24/2020, 2:47 PM Age: 59 Years MMode/2D Measurements & Calculations IVSd: 0.88 cm LVIDs: 2.7 cm LVIDd: 3.8 cm LVPWd: 0.77 cm LAV (MOD-bp): 33.0 ml ACS: 1.53 cm Ao root diam: 2.8 cm LVOT diam: 1.99 cm LA dimension: 3.0 cm Doppler Measurements & Calculations MV E max ethan: 114.8 cm/sec Med E/e': 16.6 MV A max ethan: 100.0 cm/sec Med Peak E' Ethan: 6.9 cm/sec MV E/A: 1.15 Lat E/e': 8.9 Lat Peak E' Ethan: 13.0 cm/sec Ao max P.9 mmHg MELCHOR(I,D): 3.1 cm Ao mean P.9 mmHg LV V1 mean: 85.5 cm/sec Ao V2 max: 149.3 cm/sec LV V1 mean P.5 mmHg TR max ethan: 166.5 cm/sec TR max P.3 mmHg Procedure A two-dimensional transthoracic echocardiogram with color flow and Doppler was performed. The patien t was in normal sinus rhythm during the exam. Left Ventricle The left ventricular size, thickness and function are normal. Ejection Fraction = 65%. The transmitr al spectral Doppler flow pattern is suggestive of impaired LV relaxation. Right Ventricle The right ventricle is normal in size and function. Atria Normal left and right atrial size and function. Mitral Valve The mitral valve chordae are thickened and/or calcified. There is trace mitral regurgitation. Tricuspid Valve The tricuspid valve is not well visualized, but is grossly normal. There was insufficient TR detecte d to calculate RV systolic pressure. Aortic Valve The aortic valve is not well visualized. No hemodynamically significant valvular aortic stenosis. Pulmonic Valve The pulmonic valve is not well visualized. Great Vessels The aortic root is normal size. Pericardium/Pleura There is no pericardial effusion. Tech Comments TDS. Patient scanned sitting up slightly. Coughed throughout study. Summary Statements The left ventricular size, thickness and function are normal Normal left and right atrial size and function. The mitral valve chordae are thickened and/or calcified. There is trace mitral regurgitation. There was insufficient TR detected to calculate RV systolic pressure. No hemodynamically significant valvular aortic stenosis. MD Frantz Montana 02/24/2020, 5:45 PM Ordering Physician: Frantz Montana Referring Physician: FRANTZ MONTANA Performed By: Danielle Longo
--- NOTE | 2020-02-24 21:57 | PN ---
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 Patient is arleady on plavix and statin. She also have history of htn, [facility] and [facility] dro[facility]. She describes dizziness as spinning sensation. Patent has ct head no acute findings. Ther eis left occipital infarct mri of brain showed left cerebellar peducnle stroke and right ica stenosis pateint fell down yesterday, and two ct scan is stable waiting for vascular surgery consult neurological examination Alert oriented x 2, speech is normal, neck is supple vss eomi, pupil reactive , left facial droopiness ? lmn type there is mild right arm weakness sensation is normal reflex are normal bilaterally ct head old left occpital stroke mri of brain showed there is left cerebellar peduncle ischemic lesion cta of neck showed there is right ica [address] head unremarkable, as patient has fall on february 21 Assessment/Plan -1. left cebellar acute stroke , also have history of left occpital stroke Plan:- vascular surgery consult for right ica stenosis - pending loop recording, but no family available to give consent - contnue plavix and statin - pt - speech consult appreciated would continue to follow psych consult appreciated Delmy guerrero so much Osman Orozco MD
[2020-02-24] MEDS: ATORVASTATIN CA 40 MG TABLET (FP) PO SCH (21:58)
[2020-02-24] MEDS: INSULIN (LEVEMIR) 100 UNITS/ML UNITS SQ SCH (21:58)
[2020-02-25] MEDS: HEPARIN NA (PORCINE) 5,000 UNITS/ML 1ML VIAL SQ SCH ×3 (06:12→21:32)
[2020-02-25] MEDS: INSULIN SLIDING SCALE (NOVOLOG) 1 VIAL SQ SCH ×4 (06:12→22:08)
[2020-02-25 07:22] LABS: BASO % 0.6 % (0-2.0); EOS % 1.6 % (0-4.5); HEMATOCRIT 35.5 % (32.4-45.2); LYMPH % 31.3 % (8-40); MCH 28.4 pg (25.7-33.7); MCHC 33.7 g/dl (32.0-36.0); MEAN CELL VOLUME 84.5 fl (80-96); MEAN PLT VOLUME 8.2 fl (7.5-11.1); MONO % 8.6 % (3.8-10.2); NEUT % 57.9 % (42.8-82.8); PLATELET COUNT 273 K/MM3 (134-434); RBC 4.21 M/mm3 (3.60-5.2); WHITE BLOOD COUNT 10.9 K/mm3 (4.0-10.0)
[2020-02-25 07:47] LABS: POTASSIUM 3.7 mmol/L (3.5-5.1)
[2020-02-25 07:56] LABS: ALBUMIN 3.4 g/dl (3.4-5.0); BILIRUBIN,TOTAL 0.6 mg/dL (0.2-1); BLOOD UREA NITROGEN 6.6 mg/dL (7-18); CALCIUM 9.2 mg/dL (8.5-10.1); CREATININE 0.4 mg/dL (0.55-1.3); TOT PROT 6.5 g/dl (6.4-8.2)
--- NOTE | 2020-02-25 08:54 | PN ---
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, Physician - Current Medication List Current Medications: Active Medications Acetaminophen (Tylenol -) 650 mg PO Q6H PRN PRN Reason: FEVER Aspirin (Asa -) 325 mg PO DAILY [facility] Last Admin: 02/24/20 09:57 Dose: 325 mg Documented by: Atorvastatin Calcium (Lipitor -) 40 mg PO HS [facility] Last Admin: 02/24/20 21:58 Dose: 40 mg Documented by: Benztropine Mesylate (Cogentin -) 0.5 mg PO DAILY [facility] Last Admin: 02/24/20 09:57 Dose: 0.5 mg Documented by: Clopidogrel Bisulfate (Plavix -) 75 mg PO DAILY [facility] Last Admin: 02/24/20 09:57 Dose: 75 mg Documented by: Heparin Sodium (Porcine) (Heparin -) 5,000 unit SQ TID [facility] Last Admin: 02/25/20 06:12 Dose: 5,000 unit Documented by: Insulin Aspart (Novolog Vial Sliding Scale -) 1 vial SQ [facility]; Protocol Last Admin: 02/25/20 06:12 Dose: Not Given Documented by: Insulin Detemir (Levemir Vial) 10 units SQ [facility] Last Admin: 02/24/20 21:58 Dose: 10 units Documented by: Lisinopril (Prinivil) 10 mg PO DAILY [facility] Last Admin: 02/24/20 15:01 Dose: 10 mg Documented by: Pantoprazole Sodium (Protonix -) 40 mg PO DAILY [facility] Last Admin: 02/24/20 10:09 Dose: 40 mg Documented by: Sertraline HCl (Zoloft -) 50 mg PO DAILY [facility] Last Admin: 02/24/20 09:57 Dose: 50 mg Documented by: - Objective Vital Signs: Vital Signs Temperature 98.1 F 02/25/20 06:00 Pulse Rate 69 02/25/20 06:00 Respiratory Rate 17 02/25/20 06:00 Blood Pressure 163/75 02/25/20 06:00 O2 Sat by Pulse Oximetry (%) 97 02/25/20 08:01 Cardiovascular: Yes: S1, S2 Respiratory: Yes: Regular, CTA Bilaterally Gastrointestinal: Yes: Normal Bowel Sounds, Soft. No: Tenderness Labs: CBC, BMP 02/25/20 05:48 02/25/20 05:48 INR, PTT INR 1.05 (0.83-1.09) 02/21/20 02:45 Problem List - Problems (1) Cerebrovascular accident (CVA) Assessment/Plan: ct head old left occpital stroke mri of brain showed there is left cerebellar peduncle ischemic lesion cta of neck showed there is right ica [address] head unremarkable, as patient has fall on february 21 Orders 02/22/20 10:00 Aspirin [ASA -] 325 mg PO DAILY Atorvastatin Ca [Lipitor -] 40 mg PO HS Clopidogrel Bisulfate [Plavix -] 75 mg PO DAILY Neuro Assessment/Plan -1. left cebellar acute stroke , also have history of left occpital stroke Plan:- vascular surgery consult for right ica stenosis - pending loop recording, but no family available to give consent - contnue plavix and statin - pt - speech consult appreciated would continue to follow psych consult appreciated Meclizine prn Code(s): I63.9 - CEREBRAL INFARCTION, UNSPECIFIED Qualifiers: CVA mechanism: unspecified Qualified Code(s): I63.9 - Cerebral infarction, unspecified (2) Facial droop Assessment/Plan: r/o new cva mri noted --+ neuro appreciated Code(s): R29.810 - FACIAL WEAKNESS (3) Diabetes Assessment/Plan: bgm and monitor endo Code(s): E11.9 - TYPE 2 DIABETES MELLITUS WITHOUT COMPLICATIONS Qualifiers: Diabetes mellitus type: type 2 (4) Hypertension Assessment/Plan: monitor Vital Signs Period Temp Pulse Resp BP Sys/Gregory Pulse Ox Last 24 Hr 98.0 F-98.5 F 69-85 16-20 107-153/43-94 99-100 Code(s): I10 - ESSENTIAL (PRIMARY) HYPERTENSION (5) Electrolyte abnormality Assessment/Plan: replace Code(s): E87.8 - OTH DISORDERS OF ELECTROLYTE AND FLUID BALANCE, NEC (6) Carotid stenosis Assessment/Plan: Vascular Consult Code(s): I65.29 - OCCLUSION AND STENOSIS OF UNSPECIFIED CAROTID ARTERY
[2020-02-25] MEDS: CLOPIDOGREL BISULFATE 75 MG TABLET (FP) PO SCH ×2 (10:10→11:04)
[2020-02-25] MEDS: SERTRALINE HCL 50 MG TABLET (FP) PO SCH ×2 (10:10→11:05)
[2020-02-25] MEDS: PANTOPRAZOLE 40 MG TABLET PO SCH ×2 (10:10→11:05)
[2020-02-25] MEDS: LISINOPRIL 10 MG TABLET (FP) PO SCH ×2 (10:10→11:05)
[2020-02-25] MEDS: BENZTROPINE MESYLATE 0.5 MG TABLET (FP) PO SCH ×2 (10:11→11:04)
[2020-02-25] MEDS: ASPIRIN 325 MG TABLET PO SCH ×2 (10:11→11:04)
--- NOTE | 2020-02-25 11:34 | PN ---
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, COMMUNITY EDUCATION SPECIALIST - Note 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: Selected Entries 02/23/20 02/23/20 02/23/20 00:45 02:00 02:45 Breakfast Diet Tolerated Supper Temperature 98.2 F 99.3 F 98.2 F Pulse Rate 82 82 82 Respiratory 18 20 20 Rate Respiratory Depth Respiratory Effort Blood Pressure 136/68 148/75 148/75 O2 Sat by Pulse 93 L Oximetry (%) Weight 02/23/20 02/23/20 02/23/20 04:45 06:00 06:45 Breakfast Diet Tolerated Supper Temperature 98.3 F 98.6 F 98.3 F Pulse Rate 80 80 80 Respiratory 20 20 20 Rate Respiratory Depth Respiratory Effort Blood Pressure 138/74 125/77 125/77 O2 Sat by Pulse 96 Oximetry (%) Weight 02/23/20 02/23/20 02/23/20 08:59 09:00 10:00 Breakfast Diet Tolerated Supper Temperature 98.1 F 98.1 F Pulse Rate 72 72 Respiratory 20 20 20 Rate Respiratory Normal Depth Respiratory Non-Labored Effort Blood Pressure 147/80 147/80 O2 Sat by Pulse 96 96 Oximetry (%) Weight 02/23/20 02/23/20 02/23/20 10:04 10:56 10:59 Breakfast 50% Diet Tolerated Well Supper Temperature 98.3 F Pulse Rate 81 Respiratory 20 Rate Respiratory Depth Respiratory Effort Blood Pressure 139/73 O2 Sat by Pulse Oximetry (%) Weight 134 lb 02/23/20 02/23/20 02/23/20 13:00 14:00 14:59 Breakfast Diet Tolerated Supper Temperature 98.1 F 98.1 F 98.1 F Pulse Rate 84 82 82 Respiratory 20 20 18 Rate Respiratory Depth Respiratory Effort Blood Pressure 132/67 132/67 132/67 O2 Sat by Pulse 97 97 Oximetry (%) Weight 02/23/20 02/23/20 02/23/20 16:59 18:00 21:00 Breakfast Diet Tolerated Poor Supper 25% Temperature 98.9 F 98.9 F Pulse Rate 79 79 Respiratory 18 20 Rate Respiratory Normal Depth Respiratory Non-Labored Effort Blood Pressure 143/76 141/78 O2 Sat by Pulse 95 Oximetry (%) Weight 02/23/20 02/23/20 02/24/20 22:00 22:59 02:00 Breakfast Diet Tolerated Supper Temperature 98.2 F 99.3 F 98 F Pulse Rate 76 70 76 Respiratory 17 17 18 Rate Respiratory Depth Respiratory Effort Blood Pressure 147/70 143/74 140/75 O2 Sat by Pulse 95 Oximetry (%) Weight 02/24/20 02/24/20 02/24/20 02:59 06:00 06:59 Breakfast Diet Tolerated Supper Temperature 98 F 98 F 98 F Pulse Rate 76 69 69 Respiratory 18 17 17 Rate Respiratory Depth Respiratory Effort Blood Pressure 140/75 146/78 146/78 O2 Sat by Pulse 95 Oximetry (%) Weight Laboratory Tests 02/21/20 02/22/20 02/23/20 02:45 05:55 18:40 WBC 21.0 H 12.9 H 12.5 H Selected Entries 02/24/20 02/24/20 02/24/20 02:00 02:59 06:00 Breakfast Lunch Supper Temperature 98 F 98 F 98 F Pulse Rate 76 76 69 Respiratory Rate Respiratory Effort Blood Pressure 140/75 140/75 146/78 O2 Sat by Pulse Oximetry (%) 02/24/20 02/24/20 02/24/20 06:59 10:00 14:00 Breakfast 25% Lunch 25% Supper Temperature 98 F 97.9 F 98.6 F Pulse Rate 69 65 79 Respiratory Rate Respiratory Effort Blood Pressure 146/78 144/88 182/79 H O2 Sat by Pulse Oximetry (%) 02/24/20 02/24/20 02/25/20 18:00 22:00 02:00 Breakfast Lunch Supper 25% Temperature 98.2 F 98.3 F Pulse Rate 79 69 Respiratory 20 Rate Respiratory Effort Blood Pressure 149/74 154/74 O2 Sat by Pulse 97 Oximetry (%) 02/25/20 02/25/20 02/25/20 06:00 08:01 10:00 Breakfast Lunch Supper Temperature Pulse Rate Respiratory 17 18 Rate Respiratory Non-Labored Effort Blood Pressure O2 Sat by Pulse 95 97 94 L Oximetry (%) Laboratory Tests 02/23/20 02/25/20 18:40 05:48 WBC 12.5 H 10.9 H Please refer to MBS results, recommendations. Pt is at risk of aspiration, dehydration, malnutrition but hopefully swallowing will improve and pt will tolerate modified diet with modified diet and compensatory swallowing strategies. Nursing reports pt is coughing onj allm po trials and they have been held including po meds. Upon reassessment, pt noted to cough on saliva and po trials. Vocal quality is euphonic. Accepted by [facility] for acute rehab pending further w/u- Concur with holding po trials NPO- Peg insertion/swallowing rehab Suggest Palliative care consult regarding end of life wishes/PEG insertion. Pt is full code
--- NOTE | 2020-02-25 11:41 | PN ---
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 CT head no acute findings. MRI with acute left cerebellar peduncle stroke and R ICA stenosis noted. No chestpain, sob, or palpitations noted. C/o dizziness. Tele: sinus - Current Medication List Current Medications: Active Medications Acetaminophen (Tylenol -) 650 mg PO Q6H PRN PRN Reason: FEVER Aspirin (Asa -) 325 mg PO DAILY [facility] Last Admin: 02/25/20 11:04 Dose: Not Given Documented by: Atorvastatin Calcium (Lipitor -) 40 mg PO HS [facility] Last Admin: 02/24/20 21:58 Dose: 40 mg Documented by: Benztropine Mesylate (Cogentin -) 0.5 mg PO DAILY [facility] Last Admin: 02/25/20 11:04 Dose: Not Given Documented by: Clopidogrel Bisulfate (Plavix -) 75 mg PO DAILY [facility] Last Admin: 02/25/20 11:04 Dose: Not Given Documented by: Heparin Sodium (Porcine) (Heparin -) 5,000 unit SQ TID [facility] Last Admin: 02/25/20 06:12 Dose: 5,000 unit Documented by: Insulin Aspart (Novolog Vial Sliding Scale -) 1 vial SQ [facility]; Protocol Last Admin: 02/25/20 06:12 Dose: Not Given Documented by: Insulin Detemir (Levemir Vial) [address] [facility] Last Admin: 02/24/20 21:58 Dose: 10 units Documented by: Lisinopril (Prinivil) 10 mg PO DAILY [facility] Last Admin: 02/25/20 11:05 Dose: Not Given Documented by: Pantoprazole Sodium (Protonix -) 40 mg PO DAILY [facility] Last Admin: 02/25/20 11:05 Dose: Not Given Documented by: Sertraline HCl (Zoloft -) 50 mg PO DAILY [facility] Last Admin: 02/25/20 11:05 Dose: Not Given Documented by: - Objective Vital Signs: Vital Signs Temperature 98 F 02/25/20 10:00 Pulse Rate 68 02/25/20 10:00 Respiratory Rate 18 02/25/20 10:00 Blood Pressure 173/98 H 02/25/20 10:00 O2 Sat by Pulse Oximetry (%) 94 L 02/25/20 10:00 Constitutional: Yes: No Distress Neck: Yes: Supple Cardiovascular: Yes: Regular Rate and Rhythm, S1, S2. 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 CT head no acute findings. MRI with acute left cerebellar peduncle stroke and R ICA stenosis noted. No chestpain, sob, or palpitations noted. C/o dizziness. Tele: sinus EKG: sinus rhythm, pvc, nonspecific T wave abnormalities 1) CVA -Seen by neuro Pending vascular eval for R ICA stenosis -Aspirin/plavix/statin BP control. Can uptitrate lisinopril as needed but avoid hypotension given recent cva - echocardiogram unremarkable -Multiple strokes. acute cva in left cerebellar area. Spoke with Dr. Rivas at length and family regarding loop recorder. Given that patient cannot give consent and no official health care proxy Dr. Rivas says he was told by hospital administration that since ILR is not emergent cannot be placed event with family consent. Would plan for outpatient 30 day event monitor. If situation changes and able to get appropriate consent than plan for ILR (can be done as an outpatient). Please call as needed
[2020-02-25] MEDS ORDERED: PT OWN MED DRAWER 7, Y5N ONE (20:50)
[2020-02-25] MEDS: ATORVASTATIN CA 40 MG TABLET (FP) PO SCH (21:32)
[2020-02-25] MEDS: ENALAPRILAT DIHYDRATE 1.25 MG/1 ML VIAL IVPB SCH (21:38)
[2020-02-25] MEDS: INSULIN (LEVEMIR) 100 UNITS/ML UNITS SQ SCH (22:09)
--- NOTE | 2020-02-25 23:03 | PN ---
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 Patient is arleady on plavix and statin. She also have history of htn, h[facility] and facial droopiness. She describes dizziness as spinning sensation. Patent has ct head no acute findings. Ther eis left occipital infarct mri of brain showed left cerebellar peducnle stroke and right ica stenosis pateint fell down yesterday, and two ct scan is stable waiting for vascular surgery consult, patient has been coughing and failed swallowing neurological examination Alert oriented x 2, speech is normal, neck is supple vss eomi, pupil reactive , left facial droopiness ? lmn type there is mild right arm weakness sensation is normal reflex are normal bilaterally ct head old left occpital stroke mri of brain showed there is left cerebellar peduncle ischemic lesion cta of neck showed there is right ica [address] head unremarkable, as patient has fall on february 21 Assessment/Plan -1. left cebellar acute stroke , also have history of left occpital stroke Plan:- vascular surgery consult for right ica stenosis - pending loop recording, but no family available to give consent - contnue plavix and statin - pt - speech consult appreciated would continue to follow psych consult appreciated, d/c antipsychotic medicaiton Meclizine prn Tigre guerrero so much Osman Orozco MD
[2020-02-26] MEDS: ENALAPRILAT DIHYDRATE 1.25 MG/1 ML VIAL IVPB SCH ×4 (02:34→21:14)
[2020-02-26] MEDS: HEPARIN NA (PORCINE) 5,000 UNITS/ML 1ML VIAL SQ SCH ×3 (06:04→21:19)
[2020-02-26] MEDS: INSULIN SLIDING SCALE (NOVOLOG) 1 VIAL SQ SCH ×4 (06:04→22:32)
[2020-02-26] MEDS: ATORVASTATIN CA 40 MG TABLET (FP) PO SCH ×2 (06:17→21:20)
[2020-02-26] MEDS ORDERED: ENALAPRILAT DIHYDRATE 1.25 MG/1 ML VIAL IVPB STA (06:32)
[2020-02-26] MEDS ORDERED: ENALAPRILAT DIHYDRATE 1.25 MG/1 ML VIAL IVPB ONE (09:00)
--- NOTE | 2020-02-26 09:03 | PN ---
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, Physician - Current Medication List Current Medications: Active Medications Acetaminophen (Tylenol -) 650 mg PO Q6H PRN PRN Reason: FEVER Aspirin (Asa -) 325 mg PO DAILY [facility] Last Admin: 02/25/20 11:04 Dose: Not Given Documented by: Atorvastatin Calcium (Lipitor -) 40 mg PO HS [facility] Last Admin: 02/26/20 06:17 Dose: Not Given Documented by: Benztropine Mesylate (Cogentin -) 0.5 mg PO DAILY [facility] Last Admin: 02/25/20 11:04 Dose: Not Given Documented by: Clopidogrel Bisulfate (Plavix -) 75 mg PO DAILY [facility] Last Admin: 02/25/20 11:04 Dose: Not Given Documented by: Enalaprilat (Vasotec Injection -) 0.625 mg IVPB Q6H-IV [facility] Last Admin: 02/26/20 02:34 Dose: 0.625 mg Documented by: Heparin Sodium (Porcine) (Heparin -) 5,000 unit SQ TID [facility] Last Admin: 02/26/20 06:04 Dose: 5,000 unit Documented by: Insulin Aspart (Novolog Vial Sliding Scale -) 1 vial SQ [facility]; Protocol Last Admin: 02/26/20 06:04 Dose: Not Given Documented by: Insulin Detemir (Levemir Vial) 10 units SQ [facility] Last Admin: 02/25/20 22:09 Dose: 10 units Documented by: Lisinopril (Prinivil) 10 mg PO DAILY [facility] Last Admin: 02/25/20 11:05 Dose: Not Given Documented by: Pantoprazole Sodium (Protonix -) 40 mg PO DAILY [facility] Last Admin: 02/25/20 11:05 Dose: Not Given Documented by: Sertraline HCl (Zoloft -) 50 mg PO DAILY [facility] Last Admin: 02/25/20 11:05 Dose: Not Given Documented by: - Objective Vital Signs: Vital Signs Temperature 98.8 F 02/26/20 05:24 Pulse Rate 67 02/26/20 05:24 Respiratory Rate 18 02/26/20 05:24 Blood Pressure 175/82 H 02/26/20 05:24 O2 Sat by Pulse Oximetry (%) 94 L 02/26/20 05:24 Cardiovascular: Yes: S1, S2 Respiratory: Yes: Regular, CTA Bilaterally Gastrointestinal: Yes: Normal Bowel Sounds, Soft Labs: CBC, BMP 02/25/20 05:48 02/25/20 05:48 INR, PTT INR 1.05 (0.83-1.09) 02/21/20 02:45 Problem List - Problems (1) Cerebrovascular accident (CVA) Assessment/Plan: ct head old left occpital stroke mri of brain showed there is left cerebellar peduncle ischemic lesion cta of neck showed there is right ica 70 percent stenosis NPO Orders 02/22/20 10:00 Aspirin [ASA -] 325 mg PO DAILY Atorvastatin Ca [Lipitor -] 40 mg PO HS Clopidogrel Bisulfate [Plavix -] 75 mg PO DAILY Neuro Assessment/Plan -1. left cebellar acute stroke , also have history of left occpital stroke Plan:- vascular surgery consult for right ica stenosis - pending loop recording, but no family available to give consent - contnue plavix and statin - pt - speech consult appreciated would continue to follow psych consult appreciated Meclizine prn Code(s): I63.9 - CEREBRAL INFARCTION, UNSPECIFIED Qualifiers: CVA mechanism: unspecified Qualified Code(s): I63.9 - Cerebral infarction, unspecified (2) Facial droop Assessment/Plan: see above mri noted --+ neuro appreciated Code(s): R29.810 - FACIAL WEAKNESS (3) Diabetes Assessment/Plan: bgm and monitor endo Code(s): E11.9 - TYPE 2 DIABETES MELLITUS WITHOUT COMPLICATIONS Qualifiers: Diabetes mellitus type: type 2 (4) Hypertension Assessment/Plan: monitor iv meds for now Vital Signs Period Temp Pulse Resp BP Sys/Gregory Pulse Ox Last 24 Hr 98.0 F-98.5 F 69-85 16-20 107-153/43-94 99-100 Code(s): I10 - ESSENTIAL (PRIMARY) HYPERTENSION (5) Electrolyte abnormality Assessment/Plan: replace Code(s): E87.8 - OTH DISORDERS OF ELECTROLYTE AND FLUID BALANCE, NEC (6) Carotid stenosis Assessment/Plan: Vascular Consult Code(s): I65.29 - OCCLUSION AND STENOSIS OF UNSPECIFIED CAROTID ARTERY (7) Dysphagia as late effect of cerebrovascular accident (CVA) Assessment/Plan: npo gi consult fopr peg Code(s): I69.391 - DYSPHAGIA FOLLOWING CEREBRAL INFARCTION
--- NOTE | 2020-02-26 09:13 | PN ---
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 (short form) - Note 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: Called for PEG. Plavix will need to be held 5 days prior to procedure. Aspirin can be continued. ? Need for ASA 325mg as opposed to 81mg.
--- NOTE | 2020-02-26 09:40 | PN ---
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 Palliative care consult placed. Neurology suggested repeat CT head Selected Entries 02/24/20 02/24/20 02/24/20 02:00 02:59 06:00 Temperature 98 F 98 F 98 F Pulse Rate 76 76 69 Blood Pressure 140/75 140/75 146/78 02/24/20 02/24/20 02/24/20 06:59 10:00 14:00 Temperature 98 F 97.9 F 98.6 F Pulse Rate 69 65 79 Blood Pressure 146/78 144/88 182/79 H 02/24/20 02/24/20 02/25/20 18:00 22:00 02:00 Temperature 98.2 F 98.3 F 98.2 F Pulse Rate 79 69 62 Blood Pressure 149/74 154/74 153/84 02/25/20 02/25/20 02/25/20 06:00 10:00 14:00 Temperature 98.1 F 98 F 98.7 F Pulse Rate 69 68 77 Blood Pressure 163/75 173/98 H 186/98 H 02/25/20 02/25/20 02/26/20 18:00 20:19 02:00 Temperature 98.5 F 98.5 F 98.1 F Pulse Rate 69 70 83 Blood Pressure 157/84 186/83 H 160/89 02/26/20 05:24 Temperature 98.8 F Pulse Rate 67 Blood Pressure 175/82 H Laboratory Tests 02/23/20 02/25/20 18:40 05:48 WBC 12.5 H 10.9 H
[2020-02-26] MEDS: PANTOPRAZOLE 40 MG TABLET PO SCH (09:50)
[2020-02-26] MEDS: CLOPIDOGREL BISULFATE 75 MG TABLET (FP) PO SCH (09:50)
[2020-02-26] MEDS: ASPIRIN 325 MG TABLET PO SCH (09:50)
[2020-02-26] MEDS: BENZTROPINE MESYLATE 0.5 MG TABLET (FP) PO SCH (09:50)
[2020-02-26] MEDS: LISINOPRIL 10 MG TABLET (FP) PO SCH (09:50)
[2020-02-26] MEDS: AMINO ACIDS 4.25%/D5W 1,000 ML IV SCH ×2 (09:53→21:19)
[2020-02-26] MEDS: SERTRALINE HCL 50 MG TABLET (FP) PO SCH (09:55)
--- NOTE | 2020-02-26 10:12 | PN ---
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 (short form) - Note 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: Vascular Surgery Pt with left facial droop with right sided weakness. Hx of old occipital infarct. CTA reviewed -Left carotid is normal. Right carotid is 70% in common carotid. ICA bl are normal. Infract in the past is from the posterior circulation. Anterior circulation is clean. Medical management. No need for any surgery at this time. Martin Sullivan DO
--- NOTE | 2020-02-26 11:05 | PN ---
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 CT head no acute findings. MRI with acute left cerebellar peduncle stroke and R ICA stenosis noted. No chestpain, sob, or palpitations noted. C/o dizziness. Tele: sinus - Current Medication List Current Medications: Active Medications Acetaminophen (Tylenol -) 650 mg PO Q6H PRN PRN Reason: FEVER Aspirin (Asa -) 325 mg PO DAILY [facility] Last Admin: 02/26/20 09:50 Dose: Not Given Documented by: Atorvastatin Calcium (Lipitor -) 40 mg PO HS [facility] Last Admin: 02/26/20 06:17 Dose: Not Given Documented by: Benztropine Mesylate (Cogentin -) 0.5 mg PO DAILY [facility] Last Admin: 02/26/20 09:50 Dose: Not Given Documented by: Clopidogrel Bisulfate (Plavix -) 75 mg PO DAILY [facility] Last Admin: 02/26/20 09:50 Dose: Not Given Documented by: Enalaprilat (Vasotec Injection -) 0.625 mg IVPB Q6H-IV [facility] Last Admin: 02/26/20 09:53 Dose: 0.625 mg Documented by: Heparin Sodium (Porcine) (Heparin -) 5,000 unit SQ TID [facility] Last Admin: 02/26/20 06:04 Dose: 5,000 unit Documented by: Amino Acids (Clinimix -) 1,000 mls @ 84 mls/hr IV Q12H [facility] Last Admin: 02/26/20 09:53 Dose: 84 mls/hr Documented by: Insulin Aspart (Novolog Vial Sliding Scale -) 1 vial SQ [facility]; Protocol Last Admin: 02/26/20 06:04 Dose: Not Given Documented by: Insulin Detemir (Levemir Vial) 10 units SQ [facility] Last Admin: 02/25/20 22:09 Dose: 10 units Documented by: Lisinopril (Prinivil) 10 mg PO DAILY [facility] Last Admin: 02/26/20 09:50 Dose: Not Given Documented by: Pantoprazole Sodium (Protonix -) 40 mg PO DAILY [facility] Last Admin: 02/26/20 09:50 Dose: Not Given Documented by: Sertraline HCl (Zoloft -) 50 mg PO DAILY [facility] Last Admin: 02/26/20 09:55 Dose: Not Given Documented by: - Objective Vital Signs: Vital Signs Temperature 98.8 F 02/26/20 05:24 Pulse Rate 67 02/26/20 05:24 Respiratory Rate 18 02/26/20 05:24 Blood Pressure 175/82 H 02/26/20 05:24 O2 Sat by Pulse Oximetry (%) 94 L 02/26/20 05:24 Constitutional: Yes: No Distress Neck: Yes: Supple Cardiovascular: Yes: Regular Rate and Rhythm, S1, S2. No: Murmur Respiratory: Yes: CTA Bilaterally Gastrointestinal: Yes: Soft Edema: No Labs: CBC, BMP 02/25/20 05:48 02/25/20 05:48 INR, PTT INR 1.05 (0.83-1.09) 02/21/20 02:45 Problem List - Problems (1) Carotid stenosis Code(s): I65.29 - OCCLUSION AND STENOSIS OF UNSPECIFIED CAROTID ARTERY (2) Cerebrovascular accident (CVA) Code(s): I63.9 - CEREBRAL INFARCTION, UNSPECIFIED Qualifiers: CVA mechanism: unspecified Qualified Code(s): I63.9 - Cerebral infarction, unspecified (3) Hypertension Code(s): I10 - ESSENTIAL (PRIMARY) HYPERTENSION Assessment/Plan 59 year old with a pmhx of cva (left occipital and 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 CT head no acute findings. MRI with acute left cerebellar peduncle stroke and R ICA stenosis noted. No chestpain, sob, or palpitations noted. C/o dizziness. Tele: sinus EKG: sinus rhythm, pvc, nonspecific T wave abnormalities 1) CVA -Seen by neuro Pending vascular eval for R ICA stenosis -Aspirin/plavix/statin BP control. - echocardiogram unremarkable -Multiple strokes. acute cva in left cerebellar area. Spoke with Dr. Rivas at length and family regarding loop recorder. Given that patient cannot give consent and no official health care proxy Dr. Rivas says he was told by hospital administration that since ILR is not emergent cannot be placed event with family consent. Would plan for outpatient 30 day event monitor. If situation changes and able to get appropriate consent than plan for ILR (can be done as an outpatient). 2) HTN when can take po meds put on lisinopril po If need better bp control for now can also use hydralazine IV Will sign off at this time.
--- NOTE | 2020-02-26 11:10 | CONSULT ---
Consult Consult Specialty:: Endocrine Referred by:: dr.Innabi Pickering Reason for Consultation:: Diabetes mellitus type 2 - History of Present Illness Chief Complaint: high sugars History of Present Illness: 59 year female,pmh of diabetes, htn, previous cva a couple months ago presented for left facial droop. had been having dizziness Denies any preceding trauma, no falls. 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 Cardio/Vascular: Yes: HTN, Hyperlipdemia ...LMP: 02/21/20 ...: No - Alcohol/Substance Use Hx Alcohol Use: No - Smoking History Smoking history: Never smoked Have you smoked in the past 12 months: No - Social History Usual Living Arrangement: With Significant Other Home Medications - Allergies Allergies/Adverse Reactions: Allergies Allergy/AdvReac Type Severity Reaction Status Date / Time No Known Allergies Allergy Verified 02/21/20 15:05 - Home Medications Home Medications: Ambulatory Orders Aspirin [ASA -] 81 mg PO DAILY 02/21/20 Atorvastatin Ca [Lipitor] 40 mg PO HS 02/21/20 Benztropine Mesylate 0.5 mg PO DAILY 02/21/20 Clopidogrel Bisulfate [Plavix -] 75 mg PO DAILY 02/21/20 Dapagliflozin Propanediol [Farxiga] 10 mg PO DAILY 02/21/20 Insulin Degludec [Tresiba Flextouch U-200] 40 unit SQ DAILY 02/21/20 Lisinopril/Hydrochlorothiazide [Lisinopril-Hctz 20-25 mg Tab] 1 each PO DAILY 02/21/20 Risperidone 3 mg PO DAILY 02/21/20 Sertraline HCl 50 mg PO DAILY 02/21/20 Sitagliptin Phos/Metformin HCl [Janumet 50-1,000 mg Tablet] 1 each PO BID 02/21/20 Physical Exam Vital Signs: Vital Signs Temperature 98.8 F 02/26/20 05:24 Pulse Rate 67 02/26/20 05:24 Respiratory Rate 18 02/26/20 05:24 Blood Pressure 175/82 H 02/26/20 05:24 O2 Sat by Pulse Oximetry (%) 94 L 02/26/20 05:24 Labs: CBC, BMP 02/25/20 05:48 02/25/20 05:48
[2020-02-26] MEDS ORDERED: PT OWN MED DRAWER 7, Y5N ONE ×2 (15:43→20:46)
--- NOTE | 2020-02-26 22:18 | PN ---
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 (short form) - Note 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: Had D/W patient's son earlier this evening regarding PEG placement given aspiration risk as outlined in S/S evaluation. Discussed potential risks of the procedure like but not limited to bleeding, perforation of other intraabdominal organs requiring surgery repair, infection, sedation medication effects all of which could be potentially life threatening. Explained that premature dislodgment of the feeding tube could result in a life threatening infection called peritonitis and that aspiration is still possible while feeding through a gastrostomy tube. He asked regarding other options. Explained that nasogastric tube feesing can be initiated as a bridge until decisions are made regarding long-term feeding options or to give time prior to deciding on other options. Per my discussion with Katie Fernández, STEVEN, last dose of Plavix was 02/23. I had also advised her to initiate NG tube feeds. PEG could be attempted 02/28 while patient still on ASA. Gt stated that he would think about options, discuss with his family and discuss things again on Saturday. One other thought would be IR placed gastrostomy. this would require less sedation, however the patient would need to be off of both ASA and Plavix. For now: Tube feeds Aspiration precautions
[2020-02-26] MEDS: INSULIN (LEVEMIR) 100 UNITS/ML UNITS SQ SCH (22:33)
[2020-02-27] MEDS: AMINO ACIDS 4.25%/D5W 1,000 ML IV SCH ×2 (02:21→16:18)
[2020-02-27] MEDS: ENALAPRILAT DIHYDRATE 1.25 MG/1 ML VIAL IVPB SCH ×4 (03:25→21:38)
[2020-02-27] MEDS: HEPARIN NA (PORCINE) 5,000 UNITS/ML 1ML VIAL SQ SCH ×3 (05:13→21:35)
[2020-02-27] MEDS: INSULIN SLIDING SCALE (NOVOLOG) 1 VIAL SQ SCH ×4 (06:29→21:37)
--- NOTE | 2020-02-27 07:25 | PN ---
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, Physician Chief Complaint: CVA Uncontrolled diabetes mellitus Leukocytosis History of Present Illness: Melissa x 2, knows her name, place, son's name. [employer] HOB elevated upright at 90 degrees, swallowed apple sauce on a spoon with cough on initial bite- no cough noted on during rest of the bedside swallow, small bites- encouraged to swallow multiple times. Hold NGT at this time. - Current Medication List Current Medications: Active Medications Acetaminophen (Tylenol -) 650 mg PO Q6H PRN PRN Reason: FEVER Aspirin (Asa -) 325 mg PO DAILY [facility] Last Admin: 02/26/20 09:50 Dose: Not Given Documented by: Atorvastatin Calcium (Lipitor -) 40 mg PO HS [facility] Last Admin: 02/26/20 21:20 Dose: Not Given Documented by: Benztropine Mesylate (Cogentin -) 0.5 mg PO DAILY [facility] Last Admin: 02/26/20 09:50 Dose: Not Given Documented by: Clopidogrel Bisulfate (Plavix -) 75 mg PO DAILY [facility] Last Admin: 02/26/20 09:50 Dose: Not Given Documented by: Enalaprilat (Vasotec Injection -) 0.625 mg IVPB Q6H-IV [facility] Last Admin: 02/27/20 03:25 Dose: 0.625 mg Documented by: Heparin Sodium (Porcine) (Heparin -) 5,000 unit SQ TID [facility] Last Admin: 02/27/20 05:13 Dose: 5,000 unit Documented by: Amino Acids (Clinimix -) 1,000 mls @ 84 mls/hr IV Q12H [facility] Last Admin: 02/27/20 02:21 Dose: 84 mls/hr Documented by: Insulin Aspart (Novolog Vial Sliding Scale -) 1 vial SQ [facility]; Protocol Last Admin: 02/27/20 06:29 Dose: 2 units Documented by: Insulin Detemir (Levemir Vial) 10 units SQ [facility] Last Admin: 02/26/20 22:33 Dose: 10 units Documented by: Lisinopril (Prinivil) 10 mg PO DAILY [facility] Last Admin: 02/26/20 09:50 Dose: Not Given Documented by: Pantoprazole Sodium (Protonix -) 40 mg PO DAILY [facility] Last Admin: 02/26/20 09:50 Dose: Not Given Documented by: Sertraline HCl (Zoloft -) 50 mg PO DAILY [facility] Last Admin: 02/26/20 09:55 Dose: Not Given Documented by: - Objective Vital Signs: Vital Signs Temperature 98.8 F 02/27/20 05:11 Pulse Rate 64 02/27/20 05:11 Respiratory Rate 18 02/27/20 05:11 Blood Pressure 160/74 02/27/20 05:11 O2 Sat by Pulse Oximetry (%) 98 02/27/20 05:11 Constitutional: Yes: Well Nourished, No Distress, Calm Cardiovascular: Yes: Regular Rate and Rhythm Respiratory: Yes: Regular, CTA Bilaterally Gastrointestinal: Yes: Normal Bowel Sounds, Soft Genitourinary: Yes: WNL Musculoskeletal: Yes: Muscle Weakness Extremities: Yes: WNL Edema: No Peripheral Pulses WNL: Yes Neurological: Yes: Alert, Oriented (x2) Psychiatric: Yes: Alert, Oriented Labs: CBC, BMP 02/25/20 05:48 02/25/20 05:48 INR, PTT INR 1.05 (0.83-1.09) 02/21/20 02:45 Problem List - Problems (1) Cerebrovascular accident (CVA) Assessment/Plan: -First CT Head on 02/21/20:Chronic left occipital cortical infarct as described above. A subtle punctate chronic left thalamic infarct is noted on the current study which cannot be definitely visualized on the prior exam. Punctate chronic right basal ganglia infarct as also seen on the previous exam. Mild periventricular chronic microvascular ischemic changes. -Repeat CT head 02/[id number]/chronic infarct in the left occipital lobe is again seen. No gross CT evidence of acute intracranial pathology is identified. -ASA -Plavix on hold for possible PEG early next week -Statin -Seen by Neurology -MBS:There is risk of aspiration, dehydration, malnutrition due to impaired laryngeal excursion, buildup in the piriform sinuses, recurrent aspiration. Swallowing is somewhat functional but with clear risks at this time. I believe the more she swallows, the better his swallow will function. I suspect swallowing will improve and hope that patient will not develop a pneumonia and will achieve sufficient nutrition before this happens. Patient needs very close monitoring. -MRI brain 02/21:1.2 cm acute nonhemorrhagic infarction left cerebellar peduncle. Ischemic changes in the abdirahman and in the white matter of both cerebral hemispheres sequela most probably to long-standing hypertension or small vessel atherosclerosis. Old completed infarction left occipital lobe with residual encephalomalacia. Basilar artery and cavernous portions internal carotid arteries unremarkable. -CTA neck 02/20:Tiny plaque at the left common carotid bifurcation/bulb without evidence of hemodynamically significant stenosis Moderate size calcified plaque with hemodynamically significant stenosis at the right common carotid bifurcation with approximately 70% narrowing of its lumen Hypoplastic distal left vertebral artery that could be traced up to the level of C1 as it enters the spinal canal. Normal enhancement of the right vertebral artery without gross evidence of stenosis. Intracranially, there is persistent origin of the left posterior cerebral artery with s ignificantly attenuated/absence of enhancement of the P2 branches consistent with the known left occ ipital lobe chronic infarct Otherwise, no gross major artery cutoff, focal hemodynamically significant stenosis, aneurysm or vascular malformation is identified within the central intracranial arterial circulation. Problems reviewed: Yes Code(s): I63.9 - CEREBRAL INFARCTION, UNSPECIFIED Qualifiers: CVA mechanism: unspecified Qualified Code(s): I63.9 - Cerebral infarction, unspecified (2) Diabetes Assessment/Plan: -A1c at 9.3 -BGM AC HS -ISS -Increase levemir to 10 U BID -Diabetic low sodium dysphagia pureed diet Problems reviewed: Yes Code(s): E11.9 - TYPE 2 DIABETES MELLITUS WITHOUT COMPLICATIONS Qualifiers: Diabetes mellitus type: type 2 (3) Dysphagia as late effect of cerebrovascular accident (CVA) Assessment/Plan: -Seen by speech pathology -Encourage PO intake -Will monitor CXR for any aspiration -Possible PEG early next week Problems reviewed: Yes Code(s): I69.391 - DYSPHAGIA FOLLOWING CEREBRAL INFARCTION (4) Carotid stenosis Assessment/Plan: -Seen by Vascular surgery -No surgical intervention recommended at this time Problems reviewed: Yes Code(s): I65.29 - OCCLUSION AND STENOSIS OF UNSPECIFIED CAROTID ARTERY (5) Hypertension Assessment/Plan: -Seen by cardiology -BP improved Problems reviewed: Yes Code(s): I10 - ESSENTIAL (PRIMARY) HYPERTENSION Assessment/Plan See problem list Spoke to travon Farmer about pt update
[2020-02-27 08:04] LABS: BASO % 0.4 % (0-2.0); EOS % 0.3 % (0-4.5); HEMATOCRIT 37.2 % (32.4-45.2); HEMOGLOBIN 12.6 GM/dL (10.7-15.3); LYMPH % 28.8 % (8-40); MCH 28.5 pg (25.7-33.7); MCHC 33.8 g/dl (32.0-36.0); MEAN CELL VOLUME 84.4 fl (80-96); MEAN PLT VOLUME 8.4 fl (7.5-11.1); MONO % 11.4 % (3.8-10.2); NEUT % 59.1 % (42.8-82.8); PLATELET COUNT 300 K/MM3 (134-434); RBC 4.41 M/mm3 (3.60-5.2); WHITE BLOOD COUNT 12.7 K/mm3 (4.0-10.0)
[2020-02-27 08:18] LABS: ALBUMIN 3.3 g/dl (3.4-5.0); BILIRUBIN,TOTAL 0.7 mg/dL (0.2-1); BLOOD UREA NITROGEN 10.1 mg/dL (7-18); CALCIUM 8.8 mg/dL (8.5-10.1); CREATININE 0.4 mg/dL (0.55-1.3); POTASSIUM 3.1 mmol/L (3.5-5.1); TOT PROT 6.6 g/dl (6.4-8.2)
[2020-02-27] MEDS ORDERED: METOPROLOL TARTRATE 5 MG/5 ML VIAL IVPUSH PRN (12:15)
[2020-02-27] MEDS ORDERED: POTASSIUM CHLORIDE ORAL LIQUID 20 MEQ/15 ML PO ONE (13:01)
[2020-02-27] MEDS: PANTOPRAZOLE 40 MG TABLET PO SCH (13:21)
[2020-02-27] MEDS: SERTRALINE HCL 50 MG TABLET (FP) PO SCH (13:21)
[2020-02-27] MEDS: ASPIRIN 325 MG TABLET PO SCH (13:21)
[2020-02-27] MEDS: LISINOPRIL 10 MG TABLET (FP) PO SCH (13:22)
[2020-02-27] MEDS: BENZTROPINE MESYLATE 0.5 MG TABLET (FP) PO SCH (13:22)
[2020-02-27] MEDS: KCL 10 MEQ IVPB 10 MEQ/100 ML INFUS.BAG IVPB SCH ×3 (13:23→16:17)
[2020-02-27] MEDS: INSULIN (LEVEMIR) 100 UNITS/ML UNITS SQ SCH (21:36)
[2020-02-27] MEDS: ATORVASTATIN CA 40 MG TABLET (FP) PO SCH (21:38)
[2020-02-27] MEDS ORDERED: PT OWN MED DRAWER 7, Y5N ONE (22:11)
--- NOTE | 2020-02-27 22:36 | PN ---
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 Patient is arleady on plavix and statin. She also have history of htn, [facility] and facial droopiness. She describes dizziness as spinning sensation. Patent has ct head no acute findings. Ther eis left occipital infarct mri of brain showed left cerebellar peducnle stroke and right ica stenosis repeat ct scan stable, continue to struggle with sawllowing, vascular surgery consult apprecaited neurological examination Alert oriented x 2, speech is normal, neck is supple vss eomi, pupil reactive , left facial droopiness ? lmn type there is mild right arm weakness sensation is normal reflex are normal bilaterally ct head old left occpital stroke mri of brain showed there is left cerebellar peduncle ischemic lesion cta of neck showed there is right ica [address] head unremarkable, as patient has fall on february 21 vascular surgery consult no need for any surgery Assessment/Plan -1. left cebellar acute stroke , also have history of left o ccpital stroke - swallowing difficulty secondary to stroke Plan:- - pending loop recording, but no family available to give consent - contnue plavix and statin - pt - speech consult appreciated would continue to follow Tigre guerrero so much Osman Orozco MD
[2020-02-28] MEDS: ENALAPRILAT DIHYDRATE 1.25 MG/1 ML VIAL IVPB SCH ×3 (03:13→16:47)
[2020-02-28] MEDS: AMINO ACIDS 4.25%/D5W 1,000 ML IV SCH ×2 (05:25→22:15)
[2020-02-28] MEDS: INSULIN SLIDING SCALE (NOVOLOG) 1 VIAL SQ SCH ×4 (06:29→22:13)
[2020-02-28] MEDS: HEPARIN NA (PORCINE) 5,000 UNITS/ML 1ML VIAL SQ SCH ×3 (06:32→22:12)
[2020-02-28] MEDS: INSULIN (LEVEMIR) 100 UNITS/ML UNITS SQ SCH (06:32)
[2020-02-28] MEDS ORDERED: PT OWN MED DRAWER 7, Y5N ONE ×2 (08:45→23:06)
--- NOTE | 2020-02-28 08:54 | PN ---
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, Physician Chief Complaint: CVA Uncontrolled diabetes mellitus Leukocytosis History of Present Illness: NAD sitting in chair eating lunch CXR clear Although at risk for aspiration, I believe pt is doing okay without NGT for now. Pt was even able to feed herself during my encounter. Pt on Calorie count- might not be able to meet her nutritional needs Pt's son Gt is the HCP - Current Medication List Current Medications: Active Medications Acetaminophen (Tylenol -) 650 mg PO Q6H PRN PRN Reason: FEVER Aspirin (Asa -) 325 mg PO DAILY [facility] Last Admin: 02/27/20 13:21 Dose: 325 mg Documented by: Atorvastatin Calcium (Lipitor -) 40 mg PO HS [facility] Last Admin: 02/27/20 21:38 Dose: 40 mg Documented by: Benztropine Mesylate (Cogentin -) 0.5 mg PO DAILY [facility] Last Admin: 02/27/20 13:22 Dose: 0.5 mg Documented by: Clopidogrel Bisulfate (Plavix -) 75 mg PO DAILY [facility] Last Admin: 02/26/20 09:50 Dose: Not Given Documented by: Enalaprilat (Vasotec Injection -) 0.625 mg IVPB Q6H-IV [facility] Last Admin: 02/28/20 03:13 Dose: Not Given Documented by: Heparin Sodium (Porcine) (Heparin -) 5,000 unit SQ TID [facility] Last Admin: 02/28/20 06:32 Dose: 5,000 unit Documented by: Amino Acids (Clinimix -) 1,000 mls @ 84 mls/hr IV Q12H [facility] Last Admin: 02/28/20 05:25 Dose: 84 mls/hr Documented by: Insulin Aspart (Novolog Vial Sliding Scale -) 1 vial SQ ACHS [facility]; Protocol Last Admin: 02/28/20 06:29 Dose: 4 units Documented by: Insulin Detemir (Levemir Vial) 10 units SQ BID@0700,2200 [facility] Last Admin: 02/28/20 06:32 Dose: 10 units Documented by: Lisinopril (Prinivil) 10 mg PO DAILY [facility] Last Admin: 02/27/20 13:22 Dose: 10 mg Documented by: Metoprolol Tartrate (Lopressor Injection -) 5 mg IVPUSH Q4H PRN PRN Reason: HYPERTENSION Pantoprazole Sodium (Protonix -) 40 mg PO DAILY [facility] Last Admin: 02/27/20 13:21 Dose: 40 mg Documented by: Sertraline HCl (Zoloft -) 50 mg PO DAILY [facility] Last Admin: 02/27/20 13:21 Dose: 50 mg Documented by: - Objective Vital Signs: Vital Signs Temperature 98.1 F 02/28/20 06:48 Pulse Rate 71 02/28/20 06:48 Respiratory Rate 18 02/28/20 06:48 Blood Pressure 167/89 02/28/20 06:48 O2 Sat by Pulse Oximetry (%) 95 02/28/20 06:48 Constitutional: Yes: Well Nourished, No Distress, Calm Cardiovascular: Yes: Regular Rate and Rhythm Respiratory: Yes: Regular, CTA Bilaterally Gastrointestinal: Yes: Normal Bowel Sounds, Soft Genitourinary: Yes: Damon Present Musculoskeletal: Yes: Muscle Weakness Extremities: Yes: WNL Edema: No Peripheral Pulses WNL: Yes Neurological: Yes: Alert, Weakness Psychiatric: Yes: Alert Labs: CBC, BMP 02/27/20 06:30 02/27/20 06:30 INR, PTT INR 1.05 (0.83-1.09) 02/21/20 02:45 Problem List - Problems (1) Cerebrovascular accident (CVA) Assessment/Plan: -First CT Head on 02/21/20:Chronic left occipital cortical infarct as described above. A subtle punctate chronic left thalamic infarct is noted on the current study which cannot be definitely visualized on the prior exam. Punctate chronic right basal ganglia infarct as also seen on the previous exam. Mild periventricular chronic microvascular ischemic changes. -Repeat CT head 02/2572-04-[id number]/chronic infarct in the left occipital lobe is again seen. No gross CT evidence of acute intracranial pathology is i dentified. -ASA -Plavix on hold for possible PEG early next week -Statin -Seen by Neurology -MBS:There is risk of aspiration, dehydration, malnutrition due to impaired laryngeal excursion, buildup in the piriform sinuses, recurrent aspiration. Swallowing is somewhat functional but with clear risks at this time. I believe the more she swallows, the better his swallow will function. I suspect swallowing will improve and hope that patient will not develop a pneumonia and will achieve sufficient nutrition before this happens. Patient needs very close monitoring. -MRI brain 02/21:1.2 cm acute nonhemorrhagic infarction left cerebellar peduncle. Ischemic changes in the abdirahman and in the white matter of both cerebral hemispheres sequela most probably to long-standing hypertension or small vessel atherosclerosis. Old completed infarction left occipital lobe with residual encephalomalacia. Basilar artery and cavernous portions internal carotid arteries unremarkable. -CTA neck 02/20:Tiny plaque at the left common carotid bifurcation/bulb without evidence of hemodynamically significant stenosis Moderate size calcified plaque with hemodynamically significant stenosis at the right common carotid bifurcation with approximately 70% narrowing of its lumen Hypoplastic distal left vertebral artery that could be traced up to the level of C1 as it enters the spinal canal. Normal enhancement of the right vertebral artery without gross evidence of stenosis. Intracranially, there is persistent origin of the left posterior cerebral artery with s ignificantly attenuated/absence of enhancement of the P2 branches consistent with the known left occ ipital lobe chronic infarct Otherwise, no gross major artery cutoff, focal hemodynamically significant stenosis, aneurysm or vascular malformation is identified within the central intracranial arterial circulation. Problems reviewed: Yes Code(s): I63.9 - CEREBRAL INFARCTION, UNSPECIFIED Qualifiers: CVA mechanism: unspecified Qualified Code(s): I63.9 - Cerebral infarction, unspecified (2) Diabetes Assessment/Plan: -A1c at 9.3 -BGM HS -ISS -Levemir -Endocrinology consult appreciated -Diabetic low sodium dysphagia pureed diet Problems reviewed: Yes Code(s): E11.9 - TYPE 2 DIABETES MELLITUS WITHOUT COMPLICATIONS Qualifiers: Diabetes mellitus type: type 2 (3) Dysphagia as late effect of cerebrovascular accident (CVA) Assessment/Plan: -Seen by speech pathology -Encourage PO intake -Add multivitamin + Remeron -CXR shows no aspiration -Possible PEG early next week Problems reviewed: Yes Code(s): I69.391 - DYSPHAGIA FOLLOWING CEREBRAL INFARCTION (4) Carotid stenosis Assessment/Plan: -Seen by Vascular surgery -No surgical intervention recommended at this time Problems reviewed: Yes Code(s): I65.29 - OCCLUSION AND STENOSIS OF UNSPECIFIED CAROTID ARTERY (5) Hypertension Assessment/Plan: -Seen by cardiology -Increase lisinopril 20 mg po daily Problems reviewed: Yes Code(s): I10 - ESSENTIAL (PRIMARY) HYPERTENSION Assessment/Plan See problem list Spoke to travon Farmer (HCP) about pt update
[2020-02-28] MEDS: SERTRALINE HCL 50 MG TABLET (FP) PO SCH (09:36)
[2020-02-28] MEDS: BENZTROPINE MESYLATE 0.5 MG TABLET (FP) PO SCH (09:36)
[2020-02-28] MEDS: ASPIRIN 325 MG TABLET PO SCH (09:36)
[2020-02-28] MEDS: PANTOPRAZOLE 40 MG TABLET PO SCH (09:36)
[2020-02-28] MEDS: LISINOPRIL 10 MG TABLET (FP) PO SCH (09:36)
[2020-02-28 11:16] LABS: BASO % 0.5 % (0-2.0); HEMATOCRIT 39.4 % (32.4-45.2); HEMOGLOBIN 13.2 GM/dL (10.7-15.3); MCHC 33.5 g/dl (32.0-36.0); MEAN CELL VOLUME 83.6 fl (80-96); MONO % 10.1 % (3.8-10.2); NEUT % 66.4 % (42.8-82.8); PLATELET COUNT 325 K/MM3 (134-434); RBC 4.71 M/mm3 (3.60-5.2); WHITE BLOOD COUNT 14.3 K/mm3 (4.0-10.0)
[2020-02-28 11:48] LABS: ALBUMIN 3.6 g/dl (3.4-5.0); BILIRUBIN,TOTAL 0.8 mg/dL (0.2-1); CALCIUM 9.4 mg/dL (8.5-10.1); CREATININE 0.6 mg/dL (0.55-1.3); POTASSIUM 3.4 mmol/L (3.5-5.1); TOT PROT 7.1 g/dl (6.4-8.2)
[2020-02-28] MEDS: TAMSULOSIN HCL 0.4 MG CAP PO SCH (13:18)
--- NOTE | 2020-02-28 13:35 | PN ---
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, Physician Chief Complaint: dmt2,with neuropathy,hyperglycmia,cva - Current Medication List Current Medications: Active Medications Acetaminophen (Tylenol -) 650 mg PO Q6H PRN PRN Reason: FEVER Aspirin (Asa -) 325 mg PO DAILY [facility] Last Admin: 02/28/20 09:36 Dose: 325 mg Documented by: Atorvastatin Calcium (Lipitor -) 40 mg PO HS [facility] Last Admin: 02/27/20 21:38 Dose: 40 mg Documented by: Benztropine Mesylate (Cogentin -) 0.5 mg PO DAILY [facility] Last Admin: 02/28/20 09:36 Dose: 0.5 mg Documented by: Clopidogrel Bisulfate (Plavix -) 75 mg PO DAILY [facility] Last Admin: 02/26/20 09:50 Dose: Not Given Documented by: Enalaprilat (Vasotec Injection -) 0.625 mg IVPB Q6H-IV [facility] Last Admin: 02/28/20 09:36 Dose: Not Given Documented by: Heparin Sodium (Porcine) (Heparin -) 5,000 unit SQ TID [facility] Last Admin: 02/28/20 13:17 Dose: 5,000 unit Documented by: Amino Acids (Clinimix -) 1,000 mls @ 84 mls/hr IV Q12H [facility] Last Admin: 02/28/20 05:25 Dose: 84 mls/hr Documented by: Insulin Aspart (Novolog Vial Sliding Scale -) 1 vial SQ ACHS [facility]; Protocol Last Admin: 02/28/20 11:58 Dose: 8 units Documented by: Insulin Detemir (Levemir Vial) 10 units SQ BID@0700,2200 [facility] Last Admin: 02/28/20 06:32 Dose: 10 units Documented by: Lisinopril (Prinivil) 10 mg PO DAILY [facility] Last Admin: 02/28/20 09:36 Dose: 10 mg Documented by: Metoprolol Tartrate (Lopressor Injection -) 5 mg IVPUSH Q4H PRN PRN Reason: HYPERTENSION Pantoprazole Sodium (Protonix -) 40 mg PO DAILY [facility] Last Admin: 02/28/20 09:36 Dose: 40 mg Documented by: Sertraline HCl (Zoloft -) 50 mg PO DAILY [facility] Last Admin: 02/28/20 09:36 Dose: 50 mg Documented by: Tamsulosin HCl (Flomax -) 0.4 mg PO DAILY@0830 [facility] Last Admin: 02/28/20 13:18 Dose: 0.4 mg Documented by: - Objective Vital Signs: Vital Signs Temperature 97.8 F 02/28/20 09:00 Pulse Rate 65 02/28/20 09:00 Respiratory Rate 18 02/28/20 09:00 Blood Pressure 157/93 02/28/20 09:00 O2 Sat by Pulse Oximetry (%) 95 02/28/20 09:00 Constitutional: Yes: No Distress Eyes: Yes: EOM Intact HENT: Yes: Normocephalic Neck: Yes: Trachea Midline Cardiovascular: Yes: Regular Rate and Rhythm Neurological: Yes: Alert, Aphasia Labs: CBC, BMP 02/28/20 10:24 02/28/20 10:24 INR, PTT INR 1.05 (0.83-1.09) 02/21/20 02:45 Problem List - Problems (1) Type 2 diabetes mellitus with diabetic neuropathic arthropathy Problems reviewed: Yes Code(s): E11.610 - TYPE 2 DIABETES MELLITUS W DIABETIC NEUROPATHIC ARTHROPATHY (2) Cerebrovascular accident (CVA) Code(s): I63.9 - CEREBRAL INFARCTION, UNSPECIFIED Qualifiers: CVA mechanism: unspecified Qualified Code(s): I63.9 - Cerebral infarction, unspecified (3) Diabetes Code(s): E11.9 - TYPE 2 DIABETES MELLITUS WITHOUT COMPLICATIONS Qualifiers: Diabetes mellitus type: type 2 (4) Dysphagia as late effect of cerebrovascular accident (CVA) Code(s): I69.391 - DYSPHAGIA FOLLOWING CEREBRAL INFARCTION (5) Facial droop Code(s): R29.810 - FACIAL WEAKNESS (6) Hypertension Code(s): I10 - ESSENTIAL (PRIMARY) HYPERTENSION Assessment/Plan Current Active Problems Carotid stenosis (Acute) Cerebrovascular accident (CVA) (Acute) Diabetes (Acute) Dysphagia as late effect of cerebrovascular accident (CVA) (Acute) Electrolyte abnormality (Acute) Facial droop (Acute) Hypertension (Acute) Abnormal Lab Results 02/28/20 02/28/20 10:24 10:24 WBC 14.3 H Absolute Neuts (auto) 9.5 H Potassium 3.4 L Random Glucose 241 H AST 9 L Laboratory Results - last 24 hr 02/27/20 02/27/20 02/27/20 17:10 20:58 23:39 WBC RBC Hgb Hct MCV MCH MCHC RDW Plt Count MPV Absolute Neuts (auto) Neutrophils % Lymphocytes % Monocytes % Eosinophils % Basophils % Nucleated RBC % Sodium Potassium Chloride Carbon Dioxide Anion Gap BUN Creatinine Est GFR (CKD-EPI)AfAm Est GFR (CKD-EPI)NonAf POC Glucometer 258 187 167 Random Glucose Calcium Total Bilirubin AST ALT Alkaline Phosphatase Total Protein Albumin 02/28/20 02/28/20 02/28/20 05:24 10:24 10:24 WBC 14.3 H RBC 4.71 Hgb 13.2 Hct 39.4 MCV 83.6 MCH 28.0 MCHC 33.5 RDW 14.0 Plt Count 325 MPV 8.0 Absolute Neuts (auto) 9.5 H Neutrophils % 66.4 Lymphocytes % 22.0 D Monocytes % 10.1 Eosinophils % 1.0 D Basophils % 0.5 Nucleated RBC % 0 Sodium 139 Potassium 3.4 L Chloride 102 Carbon Dioxide 27 Anion Gap 9 BUN 14.0 Creatinine 0.6 Est GFR (CKD-EPI)AfAm 116.45 Est GFR (CKD-EPI)NonAf 100.47 POC Glucometer 243 Random Glucose 241 H Calcium 9.4 Total Bilirubin 0.8 AST 9 L ALT 18 Alkaline Phosphatase 57 Total Protein 7.1 Albumin 3.6 02/28/20 11:41 WBC RBC Hgb Hct MCV MCH MCHC RDW Plt Count MPV Absolute Neuts (auto) Neutrophils % Lymphocytes % Monocytes % Eosinophils % Basophils % Nucleated RBC % Sodium Potassium Chloride Carbon Dioxide Anion Gap BUN Creatinine Est GFR (CKD-EPI)AfAm Est GFR (CKD-EPI)NonAf POC Glucometer 305 Random Glucose Calcium Total Bilirubin AST ALT Alkaline Phosphatase Total Protein Albumin plan: bgm qid novolog scale j at home acmeals bgm levemir 20 units am metformin 500mg bid
[2020-02-28] MEDS ORDERED: POTASSIUM CHLORIDE ORAL LIQUID 20 MEQ/15 ML PO ONE (16:53)
[2020-02-28] MEDS: metFORMIN HCL 500 MG TABLET (FP) PO SCH (17:06)
[2020-02-28] MEDS: MIRTAZAPINE 15 MG TABLET (FP) PO SCH (22:12)
[2020-02-28] MEDS: ATORVASTATIN CA 40 MG TABLET (FP) PO SCH (22:13)
[2020-02-29] MEDS: AMINO ACIDS 4.25%/D5W 1,000 ML IV SCH ×3 (05:55→22:17)
[2020-02-29] MEDS: HEPARIN NA (PORCINE) 5,000 UNITS/ML 1ML VIAL SQ SCH ×3 (06:08→22:26)
[2020-02-29] MEDS: metFORMIN HCL 500 MG TABLET (FP) PO SCH ×2 (06:09→18:42)
[2020-02-29] MEDS: INSULIN SLIDING SCALE (NOVOLOG) 1 VIAL SQ SCH ×4 (06:11→22:26)
[2020-02-29] MEDS ORDERED: INSULIN (LEVEMIR) 100 UNITS/ML UNITS SQ SCH (07:00)
[2020-02-29 07:41] LABS: BASO % 0.4 % (0-2.0); EOS % 1.2 % (0-4.5); HEMATOCRIT 35.7 % (32.4-45.2); HEMOGLOBIN 12.1 GM/dL (10.7-15.3); LYMPH % 25.5 % (8-40); MCH 28.3 pg (25.7-33.7); MCHC 33.9 g/dl (32.0-36.0); MEAN CELL VOLUME 83.4 fl (80-96); MEAN PLT VOLUME 8.2 fl (7.5-11.1); MONO % 9.7 % (3.8-10.2); NEUT % 63.2 % (42.8-82.8); PLATELET COUNT 295 K/MM3 (134-434); RBC 4.28 M/mm3 (3.60-5.2); RDW 13.9 % (11.6-15.6); WHITE BLOOD COUNT 14.4 K/mm3 (4.0-10.0)
[2020-02-29 07:57] LABS: ALBUMIN 3.3 g/dl (3.4-5.0); BILIRUBIN,TOTAL 0.4 mg/dL (0.2-1); BLOOD UREA NITROGEN 13.3 mg/dL (7-18); CALCIUM 9.1 mg/dL (8.5-10.1); CREATININE 0.4 mg/dL (0.55-1.3); POTASSIUM 3.4 mmol/L (3.5-5.1); TOT PROT 6.4 g/dl (6.4-8.2)
--- NOTE | 2020-02-29 09:03 | PN ---
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, Physician History of Present Illness: CVA Uncontrolled diabetes mellitus Leukocytosis NAD CXR clear Although at risk for aspiration, I believe pt is doing okay without NGT for now. Pt on Calorie count- might not be able to meet her nutritional needs - Current Medication List Current Medications: Active Medications Acetaminophen (Tylenol -) 650 mg PO Q6H PRN PRN Reason: FEVER Aspirin (Asa -) 325 mg PO DAILY [facility] Last Admin: 02/28/20 09:36 Dose: 325 mg Documented by: Atorvastatin Calcium (Lipitor -) 40 mg PO HS [facility] Last Admin: 02/28/20 22:13 Dose: 40 mg Documented by: Benztropine Mesylate (Cogentin -) 0.5 mg PO DAILY [facility] Last Admin: 02/28/20 09:36 Dose: 0.5 mg Documented by: Clopidogrel Bisulfate (Plavix -) 75 mg PO DAILY [facility] Last Admin: 02/26/20 09:50 Dose: Not Given Documented by: Heparin Sodium (Porcine) (Heparin -) 5,000 unit SQ TID [facility] Last Admin: 02/29/20 06:08 Dose: 5,000 unit Documented by: Amino Acids (Clinimix -) 1,000 mls @ 84 mls/hr IV Q12H [facility] Last Admin: 02/29/20 05:55 Dose: 84 mls/hr Documented by: Potassium Chloride (Potassium Chloride 10 Meq Premix Ivpb -) 10 meq in 100 mls @ 100 mls/hr IVPB Q60M [facility] Stop: 02/29/20 11:14 Insulin Aspart (Novolog Vial Sliding Scale -) 1 vial SQ ACHS [facility]; Protocol Last Admin: 02/29/20 06:11 Dose: 6 units Documented by: Insulin Detemir (Levemir Vial) 20 units SQ AM [facility] Last Admin: 02/29/20 06:11 Dose: 20 units Documented by: Lisinopril (Prinivil) 20 mg PO DAILY [facility] Metformin HCl (Glucophage -) 500 mg PO BID@0700,1630 [facility] Last Admin: 02/29/20 06:09 Dose: 500 mg Documented by: Mirtazapine (Remeron -) 7.5 mg PO HS [facility] Last Admin: 02/28/20 22:12 Dose: 7.5 mg Documented by: Multivitamins/Minerals/Vitamin C (Tab-A-Vit -) 1 tab PO DAILY [facility] Pantoprazole Sodium (Protonix -) 40 mg PO DAILY [facility] Last Admin: 02/28/20 09:36 Dose: 40 mg Documented by: Sertraline HCl (Zoloft -) 50 mg PO DAILY [facility] Last Admin: 02/28/20 09:36 Dose: 50 mg Documented by: Tamsulosin HCl (Flomax -) 0.4 mg PO DAILY@0830 [facility] Last Admin: 02/28/20 13:18 Dose: 0.4 mg Documented by: - Objective Vital Signs: Vital Signs Temperature 98.2 F 02/29/20 05:00 Pulse Rate 74 02/29/20 05:00 Respiratory Rate 18 02/29/20 05:00 Blood Pressure 164/79 02/29/20 05:00 O2 Sat by Pulse Oximetry (%) 95 02/29/20 05:00 Cardiovascular: Yes: S1, S2 Respiratory: Yes: Regular, CTA Bilaterally Gastrointestinal: Yes: Normal Bowel Sounds, Soft Neurological: Yes: Alert, Aphasia, Facial Droop, Weakness Labs: CBC, BMP 02/29/20 06:00 02/29/20 06:00 INR, PTT INR 1.05 (0.83-1.09) 02/21/20 02:45 Problem List - Problems (1) Cerebrovascular accident (CVA) Code(s): I63.9 - CEREBRAL INFARCTION, UNSPECIFIED Qualifiers: CVA mechanism: unspecified Qualified Code(s): I63.9 - Cerebral infarction, unspecified (2) Facial droop Code(s): R29.810 - FACIAL WEAKNESS (3) Diabetes Code(s): E11.9 - TYPE 2 DIABETES MELLITUS WITHOUT COMPLICATIONS Qualifiers: Diabetes mellitus type: type 2 (4) Hypertension Code(s): I10 - ESSENTIAL (PRIMARY) HYPERTENSION (5) Electrolyte abnormality Code(s): E87.8 - OTH DISORDERS OF ELECTROLYTE AND FLUID BALANCE, NEC (6) Carotid stenosis Code(s): I65.29 - OCCLUSION AND STENOSIS OF UNSPECIFIED CAROTID ARTERY (7) Dysphagia as late effect of cerebrovascular accident (CVA) Code(s): I69.391 - DYSPHAGIA FOLLOWING CEREBRAL INFARCTION Assessment/Plan - Problems (1) Cerebrovascular accident (CVA) Assessment/Plan: -First CT Head on 02/21/20:Chronic left occipital cortical infarct as described above. A subtle punctate chronic left thalamic infarct is noted on the current study which cannot be definitely visualized on the prior exam. Punctate chronic right basal ganglia infarct as also seen on the previous exam. Mild periventricular chronic microvascular ischemic changes. -Repeat CT head 02/2505-20-[id number]/chronic infarct in the left occipital lobe is again seen. No gross CT evidence of acute intracranial pathology is identified. -ASA -Plavix on hold for possible PEG early next week -Statin -Seen by Neurology -MBS:There is risk of aspiration, dehydration, malnutrition due to impaired laryngeal excursion, buildup in the piriform sinuses, recurrent aspiration. Swallowing is somewhat functional but with clear risks at this time. I believe the more she swallows, the better his swallow will function. I suspect swallowing will improve and hope that patient will not develop a pneumonia and will achieve sufficient nutrition before this happens. Patient needs very close monitoring. -MRI brain 02/21:1.2 cm acute nonhemorrhagic infarction left cerebellar peduncle. Ischemic changes in the abdirahman and in the white matter of both cerebral hemispheres sequela most probably to long-standing hypertension or small vessel atherosclerosis. Old completed infarction left occipital lobe with residual encephalomalacia. Basilar artery and cavernous portions internal carotid arteries unremarkable. -CTA neck 02/20:Tiny plaque at the left common carotid bifurcation/bulb without evidence of hemodynamically significant stenosis Moderate size calcified plaque with hemodynamically significant stenosis at the right common carotid bifurcation with approximately 70% narrowing of its lumen Hypoplastic distal left vertebral artery that could be traced up to the level of C1 as it enters the spinal canal. Normal enhancement of the right vertebral artery without gross evidence of stenosis. Intracranially, there is persistent origin of the left posterior cerebral artery with s ignificantly attenuated/absence of enhancement of the P2 branches consistent with the known left occ ipital lobe chronic infarct Otherwise, no gross major artery cutoff, focal hemodynamically significant stenosis, aneurysm or vascular malformation is identified within the central intracranial arterial circulation. Problems reviewed: Yes Code(s): I63.9 - CEREBRAL INFARCTION, UNSPECIFIED Qualifiers: CVA mechanism: unspecified Qualified Code(s): I63.9 - Cerebral infarction, unspecified (2) Diabetes Assessment/Plan: -A1c at 9.3 -BGM AC HS -ISS -Levemir -Endocrinology consult appreciated -Diabetic low sodium dysphagia pureed diet Problems reviewed: Yes Code(s): E11.9 - TYPE 2 DIABETES MELLITUS WITHOUT COMPLICATIONS Qualifiers: Diabetes mellitus type: type 2 (3) Dysphagia as late effect of cerebrovascular accident (CVA) Assessment/Plan: -Seen by speech pathology -Encourage PO intake -Add multivitamin + Remeron -CXR shows no aspiration -Possible PEG early next week Problems reviewed: Yes Code(s): I69.391 - DYSPHAGIA FOLLOWING CEREBRAL INFARCTION (4) Carotid stenosis Assessment/Plan: -Seen by Vascular surgery -No surgical intervention recommended at this time Problems reviewed: Yes Code(s): I65.29 - OCCLUSION AND STENOSIS OF UNSPECIFIED CAROTID ARTERY (5) Hypertension Assessment/Plan: -Seen by cardiology -Increase lisinopril 20 mg po daily Problems reviewed: Yes Code(s): I10 - ESSENTIAL (PRIMARY) HYPERTENSION
--- NOTE | 2020-02-29 09:48 | PN ---
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: Selected Entries 02/27/20 02/27/20 02/28/20 11:18 18:17 11:40 Breakfast NPO 50% Diet Tolerated Fair Lunch Supper 25% Temperature Pulse Rate Blood Pressure 02/28/20 02/28/20 02/29/20 15:30 19:10 01:00 Breakfast Diet Tolerated Fair Fair Lunch 50% Supper 50% Temperature 98.6 F Pulse Rate 72 Blood Pressure 141/66 02/29/20 05:00 Breakfast Diet Tolerated Lunch Supper Temperature 98.2 F Pulse Rate 74 Blood Pressure 164/79 Laboratory Tests 02/25/20 02/27/20 02/28/20 05:48 06:30 10:24 WBC 10.9 H 12.7 H 14.3 H 02/29/20 06:00 WBC 14.4 H puree/nectar reinitiated, Feeding self, reported to be doing well now. CXR-NAD
[2020-02-29] MEDS: ASPIRIN 325 MG TABLET PO SCH (11:01)
[2020-02-29] MEDS: KCL 10 MEQ IVPB 10 MEQ/100 ML INFUS.BAG IVPB SCH ×2 (11:01→11:02)
[2020-02-29] MEDS: SERTRALINE HCL 50 MG TABLET (FP) PO SCH (11:02)
[2020-02-29] MEDS: MULTIVITAMINS (DAILY MVI) TABLET (FP) PO SCH (11:02)
[2020-02-29] MEDS: TAMSULOSIN HCL 0.4 MG CAP PO SCH (11:02)
[2020-02-29] MEDS: PANTOPRAZOLE 40 MG TABLET PO SCH (11:02)
[2020-02-29] MEDS: BENZTROPINE MESYLATE 0.5 MG TABLET (FP) PO SCH (11:02)
[2020-02-29] MEDS: LISINOPRIL 20 MG TABLET (FP) PO SCH (11:02)
--- NOTE | 2020-02-29 13:52 | PN ---
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 (short form) - Note 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: Per nurse, patient has been eating well. Did have a discussion with patient's son. After discussion with his family they were going to opt for NGT feeds with monitoring for improvement. Deferring NGT / PEG at this time. Recall as needed
--- NOTE | 2020-02-29 17:44 | PN ---
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 Patient is arleady on plavix and statin. She also have history of htn, hld [facility] for dizziness and facial droopiness. She describes dizziness as spinning sensation. Patent has ct head no acute findings. Ther eis left occipital infarct mri of brain showed left cerebellar peducnle stroke and right ica stenosis repeat ct scan stable, continue to struggle with sawllowing, vascular surgery consult apprecaited patient is more awake and able to eat soft neurological examination Alert oriented x 2, speech is normal, neck is supple vss eomi, pupil reactive , left facial droopiness ? lmn type there is mild right arm weakness sensation is normal reflex are normal bilaterally ct head old left occpital stroke mri of brain showed there is left cerebellar peduncle ischemic lesion cta of neck showed there is right ica [address] head unremarkable, as patient has fall on february 21 vascular surgery consult no need for any surgery Assessment/Plan -1. left cebellar acute stroke , also have history of left occpital stroke - swallowing difficulty secondary to stroke, improved and peg tube on hold for now Plan:- - pending loop recording - contnue plavix and statin - pt - speech consult appreciated would continue to follow Tigre guerrero so much Osman Orozco MD
[2020-02-29] MEDS: ATORVASTATIN CA 40 MG TABLET (FP) PO SCH (22:25)
[2020-02-29] MEDS: MIRTAZAPINE 15 MG TABLET (FP) PO SCH (22:26)
[2020-02-29] MEDS ORDERED: INSULIN (NOVOLOG) ASPART 100 UNITS/ML 10ML VIAL ONE (22:35)
[2020-03-01] MEDS: INSULIN SLIDING SCALE (NOVOLOG) 1 VIAL SQ SCH ×4 (06:41→21:52)
[2020-03-01] MEDS: AMINO ACIDS 4.25%/D5W 1,000 ML IV SCH ×2 (06:41→10:28)
[2020-03-01] MEDS: HEPARIN NA (PORCINE) 5,000 UNITS/ML 1ML VIAL SQ SCH ×4 (06:42→21:32)
[2020-03-01] MEDS: metFORMIN HCL 500 MG TABLET (FP) PO SCH ×2 (06:42→17:26)
[2020-03-01] MEDS ORDERED: INSULIN (LEVEMIR) 100 UNITS/ML UNITS SQ SCH (07:00)
[2020-03-01 07:13] LABS: ALBUMIN 3.3 g/dl (3.4-5.0); BILIRUBIN,TOTAL 0.3 mg/dL (0.2-1); BLOOD UREA NITROGEN 14.2 mg/dL (7-18); CALCIUM 9.3 mg/dL (8.5-10.1); CREATININE 0.4 mg/dL (0.55-1.3); MAGNESIUM 1.4 mg/dL (1.8-2.4); POTASSIUM 3.6 mmol/L (3.5-5.1); TOT PROT 6.5 g/dl (6.4-8.2)
[2020-03-01 07:14] LABS: BASO % 0.4 % (0-2.0); EOS % 1.1 % (0-4.5); HEMATOCRIT 36.5 % (32.4-45.2); HEMOGLOBIN 12.2 GM/dL (10.7-15.3); LYMPH % 21.8 % (8-40); MCH 28.1 pg (25.7-33.7); MCHC 33.6 g/dl (32.0-36.0); MEAN CELL VOLUME 83.6 fl (80-96); MONO % 8.8 % (3.8-10.2); NEUT % 67.9 % (42.8-82.8); PLATELET COUNT 307 K/MM3 (134-434); RBC 4.36 M/mm3 (3.60-5.2); RDW 14.1 % (11.6-15.6); WHITE BLOOD COUNT 17.1 K/mm3 (4.0-10.0)
[2020-03-01] MEDS ORDERED: INSULIN (NOVOLOG) ASPART 100 UNITS/ML 10ML VIAL ONE ×2 (07:45→20:56)
[2020-03-01] MEDS ORDERED: INSULIN (LEVEMIR) 100 UNITS/ML UNITS SQ ONE (07:45)
--- NOTE | 2020-03-01 09:26 | DS ---
Physical Examination Vital Signs: Vital Signs Temperature 98.1 F 03/01/20 06:00 Pulse Rate 73 03/01/20 06:00 Respiratory Rate 20 03/01/20 06:00 Blood Pressure 137/67 03/01/20 06:00 O2 Sat by Pulse Oximetry (%) 92 L 03/01/20 02:00 Findings/Remarks: 59 year old female with a significant past medical history of diabetes, htn, previous cva a couple months ago presented to the ED this morning after son noted a left facial droop. He reported pt having dizziness last night which didnt resolve this am. Denies any preceding trauma, no falls. As per chart, pt's son reported some residual right sided weakness after her last stroke. No cp, sob, n/v/f/c; had some nausea/vomiting with dizziness this am Denies any fevers, chills, cough or sob (1) Cerebrovascular accident (CVA) Assessment/Plan: -First CT Head on 02/21/20:Chronic left occipital cortical infarct as described above. A subtle punctate chronic left thalamic infarct is noted on the current study which cannot be definitely visualized on the prior exam. Punctate chronic right basal ganglia infarct as also seen on the previous exam. Mild periventricular chronic microvascular ischemic changes. -Repeat CT head [id number]/chronic infarct in the left occipital lobe is again seen. No gross CT evidence of acute intracranial pathology is identified. -ASA -Restart Plavix -Statin -Seen by Neurology -MBS:There is risk of aspiration, dehydration, malnutrition due to impaired laryngeal excursion, buildup in the piriform sinuses, recurrent aspiration. Swallowing is somewhat functional but with clear risks at this time. I believe the more she swallows, the better his swallow will function. I suspect swallowing will improve and hope that patient will not develop a pneumonia and will achieve sufficient nutrition before this happens. Patient needs very close monitoring. -MRI brain 02/21:1.2 cm acute nonhemorrhagic infarction left cerebellar peduncle. Ischemic changes in the abdirahman and in the white matter of both cerebral hemispheres sequela most probably to long-standing hypertension or small vessel atherosclerosis. Old completed infarction left occipital lobe with residual encephalomalacia. Basilar artery and cavernous portions internal carotid arteries unremarkable. -CTA neck 02/20:Tiny plaque at the left common carotid bifurcation/bulb without evidence of hemodynamically significant stenosis Moderate size calcified plaque with hemodynamically significant stenosis at the right common carotid bifurcation with approximately 70% narrowing of its lumen Hypoplastic distal left vertebral artery that could be traced up to the level of C1 as it enters the spinal canal. Normal enhancement of the right vertebral artery without gross evidence of stenosis. Intracranially, there is persistent origin of the left posterior cerebral artery with s ignificantly attenuated/absence of enhancement of the P2 branches consistent with the known left occ ipital lobe chronic infarct Otherwise, no gross major artery cutoff, focal hemodynamically significant stenosis, aneurysm or vascular malformation is identified within the central intracranial arterial circulation. Problems reviewed: Yes Code(s): I63.9 - CEREBRAL INFARCTION, UNSPECIFIED Qualifiers: CVA mechanism: unspecified Qualified Code(s): I63.9 - Cerebral infarction, unspecified (2) Diabetes Assessment/Plan: -A1c at 9.3 -BGM AC HS -ISS -Levemir -Endocrinology consult appreciated -Diabetic low sodium dysphagia pureed diet with nectar thick liquids Problems reviewed: Yes Code(s): E11.9 - TYPE 2 DIABETES MELLITUS WITHOUT COMPLICATIONS Qualifiers: Diabetes mellitus type: type 2 (3) Dysphagia as late effect of cerebrovascular accident (CVA) Assessment/Plan: -Seen by speech pathology -Encourage PO intake -Added multivitamin + Remeron -CXR shows no aspiration -No PEG indicated at this time given pt is tolerating PO intake -Pt to sit up in a CHAIR for meals and remain in chair for at least 30 mins after meals to avoid aspiration -restart plavix Problems reviewed: Yes Code(s): I69.391 - DYSPHAGIA FOLLOWING CEREBRAL INFARCTION (4) Carotid stenosis Assessment/Plan: -Seen by Vascular surgery -No surgical intervention recommended at this time Problems reviewed: Yes Code(s): I65.29 - OCCLUSION AND STENOSIS OF UNSPECIFIED CAROTID ARTERY (5) Hypertension Assessment/Plan: -Seen by cardiology -Increase lisinopril 20 mg po daily Problems reviewed: Yes Code(s): I10 - ESSENTIAL (PRIMARY) HYPERTENSION Assessment/Plan See problem list Spoke to travon Farmer (HCP) about pt update Constitutional: Yes: Well Nourished, No Distress, Calm Cardiovascular: Yes: Regular Rate and Rhythm Respiratory: Yes: Regular, CTA Bilaterally Gastrointestinal: Yes: Normal Bowel Sounds, Soft Renal/: Yes: WNL Musculoskeletal: Yes: Muscle Weakness Extremities: Yes: WNL Edema: No Peripheral Pulses WNL: Yes Neurological: Yes: Alert, Oriented Psychiatric: Yes: Alert, Oriented Labs: CBC, BMP 03/01/20 06:15 03/01/20 06:15 Discharge Summary Problems reviewed: Yes Reason For Visit: CEREBROVASCULAR ACCIDENT Current Active Problems Carotid stenosis (Acute) Cerebrovascular accident (CVA) (Acute) Diabetes (Acute) Dysphagia as late effect of cerebrovascular accident (CVA) (Acute) Electrolyte abnormality (Acute) Facial droop (Acute) Hypertension (Acute) Type 2 diabetes mellitus with diabetic neuropathic arthropathy (Acute) Condition: Stable - Instructions Disposition: ASSISTED FACILITY - Home Medications Comprehensive Discharge Medication List: Ambulatory Orders Aspirin [ASA -] 81 mg PO DAILY 02/21/20 Atorvastatin Ca [Lipitor] 40 mg PO HS 02/21/20 Benztropine Mesylate 0.5 mg PO DAILY 02/21/20 Clopidogrel Bisulfate [Plavix -] 75 mg PO DAILY 02/21/20 Dapagliflozin Propanediol [Farxiga] 10 mg PO DAILY 02/21/20 Insulin Degludec [Tresiba Flextouch U-200] 40 unit SQ DAILY 02/21/20 Lisinopril/Hydrochlorothiazide [Lisinopril-Hctz 20-25 mg Tab] 1 each PO DAILY 02/21/20 Risperidone 3 mg PO DAILY 02/21/20 Sertraline HCl 50 mg PO DAILY 02/21/20 Sitagliptin Phos/Metformin HCl [Janumet 50-1,000 mg Tablet] 1 each PO BID 02/21/20 Prescription Drug Monitoring Program (I-STOP) results: I-STOP reviewed and no issues identified
[2020-03-01] MEDS ORDERED: PT OWN MED DRAWER 7, Y5N ONE ×2 (09:29→20:57)
[2020-03-01] MEDS: ASPIRIN 325 MG TABLET PO SCH (10:27)
[2020-03-01] MEDS: MULTIVITAMINS (DAILY MVI) TABLET (FP) PO SCH (10:27)
[2020-03-01] MEDS: CLOPIDOGREL BISULFATE 75 MG TABLET (FP) PO SCH (10:27)
[2020-03-01] MEDS: PANTOPRAZOLE 40 MG TABLET PO SCH (10:28)
[2020-03-01] MEDS: BENZTROPINE MESYLATE 0.5 MG TABLET (FP) PO SCH (10:28)
[2020-03-01] MEDS: LISINOPRIL 20 MG TABLET (FP) PO SCH (10:28)
[2020-03-01] MEDS: SERTRALINE HCL 50 MG TABLET (FP) PO SCH (10:28)
[2020-03-01] MEDS: TAMSULOSIN HCL 0.4 MG CAP PO SCH (10:28)
--- NOTE | 2020-03-01 10:57 | PN ---
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 May benefit from supplemental TF. Cough reported on [place] this am, needed thickener to be added Pending [facility] for intensive PT,OT,Speech/Swallowing tx
[2020-03-01] MEDS ORDERED: CEFTRIAXONE 1 GM in DEXTROSE 5%-WATER - 50 ML IVPB ONE (13:53)
--- NOTE | 2020-03-01 14:08 | PN ---
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 (short form) - Note 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: Spoke w/ Katie Fernández NP today. She was concerned because not taking enough calories despite report from Nurse yesterday. Patient was also given dose of Plavix yesterday. Advised: 72 hour calorie count if not recently performed As in previous notes, NGT and initiate NGT feeds. Aspiration precautions The Dose of Plavix does postpone placement of G-Tube, either endoscopically or radigraphically. Plavix needs to be held for 5 days prior.
[2020-03-01] MEDS ORDERED: cefTRIAXone SODIUM 1 GM VIAL ONE (14:52)
[2020-03-01] MEDS ORDERED: DEXTROSE 5%-WATER - 50 ML IVPB ONE (14:53)
--- NOTE | 2020-03-01 16:30 | CON.ID ---
Consult Referred by:: dr salter Reason for Consultation:: possible aspiration pneumonia - History of Present Illness Chief Complaint: dizziness, left facial droop 02/20. cough History of Present Illness: 59 yo female with longstanding DM, s/p recent cva in August did well with rehab, admitted 02/20 with dizziness and left facial droop workup showed acute left cerebellar CVA modified MBS with silent aspiration noted to have cough with eating only today cough is worse and persistent no fevers wbc elevated today at 17k alert follows commands greenlandic speaking daughter at bedside also has bernardo that was placed for urinary retention received rocephin 02/20 to 02/23, urine culture negative received rocephin 03/01 d/w daughter at bedside - History Source History Provided By: Family Member Limitations to Obtaining History: Clinical Condition - Past Medical History INVENTORY MANAGEMENT SPECIALIST: Yes: CVA Cardio/Vascular: Yes: HTN, Hyperlipdemia ...LMP: 02/21/20 ...: No Endocrine: Yes: Diabetes Mellitus - Past Surgical History Past Surgical History: Yes: None - Alcohol/Substance Use Hx Alcohol Use: No History of Substance Use: reports: None - Smoking History Smoking history: Never smoked Have you smoked in the past 12 months: No - Social History Usual Living Arrangement: With Significant Other ADL: Family Assistance Place of : Other ([facility]) History of Recent Travel: No Home Medications - Allergies Allergies/Adverse Reactions: Allergies Allergy/AdvReac Type Severity Reaction Status Date / Time No Known Allergies Allergy Verified 02/21/20 15:05 - Home Medications Home Medications: Ambulatory Orders Aspirin [ASA -] 81 mg PO DAILY 02/21/20 Atorvastatin Ca [Lipitor] 40 mg PO HS 02/21/20 Benztropine Mesylate 0.5 mg PO DAILY 02/21/20 Clopidogrel Bisulfate [Plavix -] 75 mg PO DAILY 02/21/20 Sertraline HCl 50 mg PO DAILY 02/21/20 Acetaminophen [Tylenol .Regular Strength -] 650 mg PO Q6H PRN tablet 03/01/20 Aspirin [ASA -] 325 mg PO DAILY tablet 03/01/20 Heparin - 5,000 unit SQ TID vial 03/01/20 Insulin (Levemir) [Levemir Vial] 30 units SQ AM units 03/01/20 Insulin Sliding Scale [Novolog Vial Sliding Scale -] 1 vial SQ ACHS units 03/01/20 Lisinopril [Prinivil] 20 mg PO DAILY tablet 03/01/20 Mirtazapine [Remeron -] 7.5 mg PO HS tablet 03/01/20 Multivitamins [Multivit ([facility] Formul[facility])] 1 tab PO DAILY tab 03/01/20 Pantoprazole Sodium [Protonix -] 40 mg PO DAILY tablet.ec 03/01/20 Sitagliptin Phosphate [Januvia -] 50 mg PO DAILY@0700 tablet 03/01/20 Tamsulosin HCl [Flomax -] 0.4 mg PO DAILY@0830 cap.er.24h 03/01/20 metFORMIN HCL [Glucophage -] 500 mg PO BID@0700,1630 tablet 03/01/20 Family Medical History Family Hx Diabetes: Father Family Hx Nuerologic Problems: Father (CVA) Other Family History: multiple family members with HTN, DM and high cholesterol, older brother with multiple strokes Review of Systems - Review of Systems Constitutional: denies: Chills, Fever Eyes: reports: No Symptoms HENT: reports: No Symptoms Neck: reports: No Symptoms Cardiovascular: reports: No Symptoms Respiratory: reports: Cough Gastrointestinal: reports: No Symptoms. denies: Abdominal Pain Genitourinary: reports: No Symptoms Musculoskeletal: reports: No Symptoms Physical Exam Vital Signs: Vital Signs Temperature 98.5 F 03/01/20 14:10 Pulse Rate 73 03/01/20 14:10 Respiratory Rate 20 03/01/20 14:10 Blood Pressure 138/77 03/01/20 14:10 O2 Sat by Pulse Oximetry (%) 94 L 03/01/20 09:00 Constitutional: Yes: Well Nourished, Mild Distress Eyes: Yes: Conjunctiva Clear HENT: Yes: Atraumatic, Normocephalic Neck: Yes: Supple Cardiovascular: Yes: Regular Rate and Rhythm Respiratory: Yes: Cough, Rhonchi Gastrointestinal: Yes: Normal Bowel Sounds, Soft ...Rectal Exam: Yes: Deferred Musculoskeletal: Yes: WNL Extremities: Yes: WNL Psychiatric: Yes: Alert Labs: CBC, BMP 03/01/20 06:15 03/01/20 06:15 Hbga1c 9. Microbiology 02/21/20 04:16 Urine - Urine Clean Catch Urine Culture - Final Normal Urogenital Holli Imaging - Results Chest X-ray: Report Reviewed, Image Reviewed Problem List - Problems (1) Leukocytosis Code(s): D72.829 - ELEVATED WHITE BLOOD CELL COUNT, UNSPECIFIED (2) Aspiration pneumonia Code(s): J69.0 - PNEUMONITIS DUE TO INHALATION OF FOOD AND VOMIT (3) Cerebrovascular accident (CVA) Code(s): I63.9 - CEREBRAL INFARCTION, UNSPECIFIED Qualifiers: CVA mechanism: unspecified Qualified Code(s): I63.9 - Cerebral infarction, unspecified (4) Diabetes Code(s): E11.9 - TYPE 2 DIABETES MELLITUS WITHOUT COMPLICATIONS Qualifiers: Diabetes mellitus type: type 2 Assessment/Plan blood cultures unasyn f/u with speech pathologist calorie count in progress
[2020-03-01] MEDS: AMINO ACIDS/PROTEIN HYDROLYS 30 ML LIQUID.PKT PO SCH (17:26)
[2020-03-01] MEDS: MIRTAZAPINE 15 MG TABLET (FP) PO SCH (21:32)
[2020-03-01] MEDS: ATORVASTATIN CA 40 MG TABLET (FP) PO SCH (21:32)
[2020-03-01] MEDS: AMPICILLIN NA/SULBACTAM NA 1.5 GM in SODIUM CHLORIDE 100 ML IVPB SCH (21:32)
[2020-03-02] MEDS: AMPICILLIN NA/SULBACTAM NA 1.5 GM in SODIUM CHLORIDE 100 ML IVPB SCH ×4 (03:45→21:40)
[2020-03-02] MEDS: HEPARIN NA (PORCINE) 5,000 UNITS/ML 1ML VIAL SQ SCH ×2 (06:22→21:40)
[2020-03-02] MEDS: INSULIN (LEVEMIR) 100 UNITS/ML UNITS SQ SCH (06:22)
[2020-03-02] MEDS: metFORMIN HCL 500 MG TABLET (FP) PO SCH (06:22)
[2020-03-02] MEDS: INSULIN SLIDING SCALE (NOVOLOG) 1 VIAL SQ SCH ×4 (06:23→21:40)
[2020-03-02] MEDS ORDERED: sitaGLIPtin PHOSPHATE 50 MG TABLET PO SCH ×2 (07:00)
[2020-03-02] MEDS: TAMSULOSIN HCL 0.4 MG CAP PO SCH (08:35)
[2020-03-02] MEDS: AMINO ACIDS/PROTEIN HYDROLYS 30 ML LIQUID.PKT PO SCH (08:35)
[2020-03-02] MEDS ORDERED: AMPICILLIN NA/SULBACTAM NA 1.5 GM VIAL ONE ×3 (09:18→20:59)
[2020-03-02] MEDS ORDERED: PT OWN MED DRAWER 7, Y5N ONE (09:18)
[2020-03-02] MEDS ORDERED: SODIUM CHLORIDE 100 ML IVPB ONE ×3 (09:19→20:59)
[2020-03-02] MEDS: ASPIRIN 325 MG TABLET PO SCH (09:30)
[2020-03-02] MEDS: MULTIVITAMINS (DAILY MVI) TABLET (FP) PO SCH (09:31)
[2020-03-02] MEDS: BENZTROPINE MESYLATE 0.5 MG TABLET (FP) PO SCH (09:31)
[2020-03-02] MEDS: LISINOPRIL 20 MG TABLET (FP) PO SCH (09:31)
[2020-03-02] MEDS: CLOPIDOGREL BISULFATE 75 MG TABLET (FP) PO SCH (09:31)
[2020-03-02] MEDS: PANTOPRAZOLE 40 MG TABLET PO SCH (09:32)
[2020-03-02] MEDS: SERTRALINE HCL 50 MG TABLET (FP) PO SCH (09:34)
--- NOTE | 2020-03-02 10:30 | PN ---
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 - Note 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: Selected Entries 03/01/20 03/01/20 03/01/20 02:00 06:00 10:14 Breakfast 25% Lunch Supper Temperature 98.3 F 98.1 F Pulse Rate 68 73 Blood Pressure 154/86 137/67 03/01/20 03/01/20 03/01/20 14:10 18:00 22:00 Breakfast Lunch 50% Supper 75% Temperature 98.5 F 97.8 F 98.0 F Pulse Rate 73 68 74 Blood Pressure 138/77 155/86 133/64 03/02/20 03/02/20 02:00 06:00 Breakfast Lunch Supper Temperature 98.3 F 97.8 F Pulse Rate 69 68 Blood Pressure 153/77 149/67 Laboratory Tests 02/29/20 03/01/20 06:00 06:15 WBC 14.4 H 17.1 H Intermittent reports of po tolerance and intermittent cough noted after meds & feeding , hob elevated @ all times Seen by ID, GI.Advised: 72 hour calorie count if not recently performed As in previous notes, NGT and initiate NGT feeds. Aspiration precautions The Dose of Plavix does postpone placement of G-Tube, either endoscopically or radigraphically. Plavix needs to be held for 5 days prior. CXR noted Reassessed swallowing, with cues to flex chin, swallow hard, twice per each small sip. Delayed cough noted. Pt refusing NGT insertion Puree/nectar ordered. IMP- Question of PO tolerance (inconsistent cough, CXR possible early infiltrate, elevated WBC) PEG for supplementation, can not be placed for 5 days to discuss w medical team after reassessment REC- Trial puree/honey thick single sips, flex chin, swallow hard, twice per each small sip. Monitor tolerance Pending PEG to supplement PO
[2020-03-02] MEDS ORDERED: MAGNESIUM SULF 50% (8.12 MEQ/2 ML-1 GM VIAL) IVPB ONE (11:07)
--- NOTE | 2020-03-02 11:09 | PN ---
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, Physician Chief Complaint: CVA Uncontrolled diabetes mellitus Leukocytosis History of Present Illness: NAD sitting in chair eating lunch CXR clear Although at risk for aspiration, I believe pt is doing okay without NGT for now. Pt was even able to feed herself during my encounter. Pt on Calorie count- might not be able to meet her nutritional needs Pt's son Gt is the HCP - Current Medication List Current Medications: Active Medications Acetaminophen (Tylenol -) 650 mg PO Q6H PRN PRN Reason: FEVER Amino Acids (Prosource No Carb Liquid Pkt) 30 ml PO BID@0800,1730 [facility] Last Admin: 03/02/20 08:35 Dose: 30 ml Documented by: Aspirin (Asa -) 325 mg PO DAILY [facility] Last Admin: 03/02/20 09:30 Dose: 325 mg Documented by: Atorvastatin Calcium (Lipitor -) 40 mg PO HS [facility] Last Admin: 03/01/20 21:32 Dose: 40 mg Documented by: Benztropine Mesylate (Cogentin -) 0.5 mg PO DAILY [facility] Last Admin: 03/02/20 09:31 Dose: 0.5 mg Documented by: Clopidogrel Bisulfate (Plavix -) 75 mg PO DAILY [facility] Last Admin: 03/02/20 09:31 Dose: 75 mg Documented by: Heparin Sodium (Porcine) (Heparin -) 5,000 unit SQ TID [facility] Last Admin: 03/02/20 06:22 Dose: 5,000 unit Documented by: Ampicillin Sodium/Sulbactam (Sodium 1.5 gm/ Sodium Chloride) 100 mls @ 200 mls/hr IVPB Q6H-IV [facility] Last Admin: 03/02/20 09:28 Dose: 200 mls/hr Documented by: Insulin Aspart (Novolog Vial Sliding Scale -) 1 vial SQ ACHS [facility]; Protocol Last Admin: 03/02/20 06:23 Dose: 2 units Documented by: Insulin Detemir (Levemir Vial) 36 units SQ AM [facility] Last Admin: 03/02/20 06:22 Dose: 36 units Documented by: Lisinopril (Prinivil) 20 mg PO DAILY [facility] Last Admin: 03/02/20 09:31 Dose: 20 mg Documented by: Magnesium Sulfate (Magnesium Sulfate) 2 gm IVPB ONCE ONE Stop: 03/02/20 11:08 Metformin HCl (Glucophage -) 500 mg PO BID@0700,1630 [facility] Last Admin: 03/02/20 06:22 Dose: 500 mg Documented by: Mirtazapine (Remeron -) 7.5 mg PO HS [facility] Last Admin: 03/01/20 21:32 Dose: 7.5 mg Documented by: Multivitamins/Minerals/Vitamin C (Tab-A-Vit -) 1 tab PO DAILY [facility] Last Admin: 03/02/20 09:31 Dose: 1 tab Documented by: Pantoprazole Sodium (Protonix -) 40 mg PO DAILY [facility] Last Admin: 03/02/20 09:32 Dose: 40 mg Documented by: Sertraline HCl (Zoloft -) 50 mg PO DAILY [facility] Last Admin: 03/02/20 09:34 Dose: 50 mg Documented by: Sitagliptin Phosphate (Januvia -) 100 mg PO DAILY@0700 [facility] Last Admin: 03/02/20 06:22 Dose: 100 mg Documented by: Tamsulosin HCl (Flomax -) 0.4 mg PO DAILY@0830 [facility] Last Admin: 03/02/20 08:35 Dose: 0.4 mg Documented by: - Objective Vital Signs: Vital Signs Temperature 97.8 F 03/02/20 06:00 Pulse Rate 68 03/02/20 06:00 Respiratory Rate 20 03/02/20 06:00 Blood Pressure 149/67 03/02/20 06:00 O2 Sat by Pulse Oximetry (%) 91 L 03/02/20 06:00 Labs: CBC, BMP 03/01/20 06:15 03/01/20 06:15 INR, PTT INR 1.05 (0.83-1.09) 02/21/20 02:45 Problem List - Problems (1) Cerebrovascular accident (CVA) Code(s): I63.9 - CEREBRAL INFARCTION, UNSPECIFIED Qualifiers: CVA mechanism: unspecified Qualified Code(s): I63.9 - Cerebral infarction, unspecified (2) Diabetes Code(s): E11.9 - TYPE 2 DIABETES MELLITUS WITHOUT COMPLICATIONS Qualifiers: Diabetes mellitus type: type 2 (3) Dysphagia as late effect of cerebrovascular accident (CVA) Code(s): I69.391 - DYSPHAGIA FOLLOWING CEREBRAL INFARCTION (4) Carotid stenosis Code(s): I65.29 - OCCLUSION AND STENOSIS OF UNSPECIFIED CAROTID ARTERY (5) Hypertension Code(s): I10 - ESSENTIAL (PRIMARY) HYPERTENSION
[2020-03-02] MEDS ORDERED: MAGNESIUM SULFATE IN WATER 2 GM/50 ML IVPB IVPB ONE (11:15)
[2020-03-02] MEDS ORDERED: INSULIN (NOVOLOG) ASPART 100 UNITS/ML 10ML VIAL ONE (11:55)
[2020-03-02 12:10] LABS: BASO % 0.6 % (0-2.0); EOS % 1.4 % (0-4.5); HEMATOCRIT 37.4 % (32.4-45.2); HEMOGLOBIN 12.5 GM/dL (10.7-15.3); LYMPH % 24.8 % (8-40); MCH 28.2 pg (25.7-33.7); MCHC 33.4 g/dl (32.0-36.0); MEAN CELL VOLUME 84.5 fl (80-96); MEAN PLT VOLUME 8.3 fl (7.5-11.1); NEUT % 64.2 % (42.8-82.8); PLATELET COUNT 279 K/MM3 (134-434); RBC 4.43 M/mm3 (3.60-5.2); RDW 14.2 % (11.6-15.6); WHITE BLOOD COUNT 12.8 K/mm3 (4.0-10.0)
[2020-03-02 12:31] LABS: ALBUMIN 3.4 g/dl (3.4-5.0); BILIRUBIN,TOTAL 0.7 mg/dL (0.2-1); BLOOD UREA NITROGEN 14.5 mg/dL (7-18); CALCIUM 9.6 mg/dL (8.5-10.1); CREATININE 0.5 mg/dL (0.55-1.3); POTASSIUM 3.6 mmol/L (3.5-5.1); TOT PROT 6.7 g/dl (6.4-8.2)
--- NOTE | 2020-03-02 13:36 | PN ---
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 (short form) - Note 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: oob in chair alert she is coughing when she eats per RN and eating poorly Vital Signs Period Temp Pulse Resp BP Sys/Gregory Pulse Ox Last 24 Hr 97.8 F-98.5 F 67-74 20-20 133-161/64-86 91-94 cor-rrr lungs decreased at bases abd soft, nt ext no edema CBC, BMP 03/02/20 11:35 03/02/20 11:35 Microbiology 02/21/20 04:16 Urine - Urine Clean Catch Urine Culture - Final Normal Urogenital Holli a/p probable aspiration pneumonia- aspiration precautions unasyn f/u speech pathology calorie count s/p CVA Problem List - Problems (1) Leukocytosis Code(s): D72.829 - ELEVATED WHITE BLOOD CELL COUNT, UNSPECIFIED (2) Aspiration pneumonia Code(s): J69.0 - PNEUMONITIS DUE TO INHALATION OF FOOD AND VOMIT (3) Cerebrovascular accident (CVA) Code(s): I63.9 - CEREBRAL INFARCTION, UNSPECIFIED Qualifiers: CVA mechanism: unspecified Qualified Code(s): I63.9 - Cerebral infarction, unspecified (4) Diabetes Code(s): E11.9 - TYPE 2 DIABETES MELLITUS WITHOUT COMPLICATIONS Qualifiers: Diabetes mellitus type: type 2
[2020-03-02] MEDS ORDERED: CLOPIDOGREL BISULFATE 75 MG TABLET (FP) GT SCH (15:01)
--- NOTE | 2020-03-02 18:12 | PN ---
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 Patient is arleady on plavix and statin. She also have history of htn, [facility] for [facility] and facial droopiness. She describes dizziness as spinning sensation. Patent has ct head no acute findings. Ther eis left occipital infarct mri of brain showed left cerebellar peducnle stroke and right ica stenosis repeat ct scan stable her wbc was high and she has aspiration was started on abx she has ng tube feeding and being consiered for peg tube placement, feeding on hold neurological examination Alert oriented x 2, speech is normal, neck is supple vss eomi, pupil reactive , left facial droopiness ? lmn type there is mild right arm weakness sensation is normal reflex are normal bilaterally ct head old left occpital stroke mri of brain showed there is left cerebellar peduncle ischemic lesion cta of neck showed there is right ica [address] head unremarkable, as patient has fall on february 21 vascular surgery consult no need for any surgery Assessment/Plan -1. left cebellar acute stroke , also have history of left occpital stroke - swallowing difficulty secondary to stroke, improved and peg tube on hold for now Plan:- - pending loop recording - contnue plavix and statin - pt - Id consult appreciated peg tube placement is pending . would continue to follow Tigre guerrero so much Osman Orozco MD
[2020-03-02] MEDS: AMINO ACIDS/PROTEIN HYDROLYS 30 ML LIQUID.PKT GT SCH (18:50)
[2020-03-02] MEDS: metFORMIN HCL 500 MG TABLET (FP) GT SCH (18:50)
[2020-03-02] MEDS: ATORVASTATIN CA 40 MG TABLET (FP) GT SCH (23:11)
[2020-03-02] MEDS: MIRTAZAPINE 15 MG TABLET (FP) GT SCH (23:12)
[2020-03-03] MEDS ORDERED: AMPICILLIN NA/SULBACTAM NA 1.5 GM VIAL ONE ×4 (02:51→20:42)
[2020-03-03] MEDS ORDERED: SODIUM CHLORIDE 100 ML IVPB ONE ×4 (02:52→20:43)
[2020-03-03] MEDS: AMPICILLIN NA/SULBACTAM NA 1.5 GM in SODIUM CHLORIDE 100 ML IVPB SCH ×4 (03:56→20:50)
[2020-03-03] MEDS: INSULIN SLIDING SCALE (NOVOLOG) 1 VIAL SQ SCH ×4 (06:13→21:34)
[2020-03-03] MEDS: INSULIN (LEVEMIR) 100 UNITS/ML UNITS SQ SCH (06:17)
[2020-03-03] MEDS: metFORMIN HCL 500 MG TABLET (FP) GT SCH ×2 (06:57→17:28)
[2020-03-03] MEDS: sitaGLIPtin PHOSPHATE 50 MG TABLET NR SCH (06:57)
[2020-03-03 07:22] LABS: BASO % 0.6 % (0-2.0); EOS % 1.3 % (0-4.5); HEMOGLOBIN 11.4 GM/dL (10.7-15.3); LYMPH % 21.7 % (8-40); MCH 28.1 pg (25.7-33.7); MCHC 33.6 g/dl (32.0-36.0); MEAN CELL VOLUME 83.7 fl (80-96); MEAN PLT VOLUME 7.9 fl (7.5-11.1); MONO % 7.9 % (3.8-10.2); NEUT % 68.5 % (42.8-82.8); PLATELET COUNT 298 K/MM3 (134-434); RBC 4.06 M/mm3 (3.60-5.2); RDW 14.3 % (11.6-15.6); WHITE BLOOD COUNT 12.6 K/mm3 (4.0-10.0)
[2020-03-03 07:52] LABS: ALBUMIN 3.3 g/dl (3.4-5.0); BILIRUBIN,TOTAL 0.6 mg/dL (0.2-1); BLOOD UREA NITROGEN 20.7 mg/dL (7-18); POTASSIUM 3.4 mmol/L (3.5-5.1); TOT PROT 6.5 g/dl (6.4-8.2)
[2020-03-03 07:53] LABS: CREATININE 0.4 mg/dL (0.55-1.3)
--- NOTE | 2020-03-03 08:03 | PN ---
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, Physician - Current Medication List Current Medications: Active Medications Amino Acids (Prosource No Carb Liquid Pkt) 30 ml GT BID@0800,1730 [facility] Last Admin: 03/02/20 18:50 Dose: Not Given Documented by: Aspirin (Asa -) 325 mg GT DAILY [facility] Atorvastatin Calcium (Lipitor -) 40 mg GT HS [facility] Last Admin: 03/02/20 23:11 Dose: Not Given Documented by: Benztropine Mesylate (Cogentin -) 0.5 mg GT DAILY [facility] Clopidogrel Bisulfate (Plavix -) 75 mg GT DAILY [facility] Famotidine (Pepcid) 20 mg NGT DAILY [facility] Heparin Sodium (Porcine) (Heparin -) 5,000 unit SQ BID [facility] Last Admin: 03/02/20 21:40 Dose: 5,000 unit Documented by: Ampicillin Sodium/Sulbactam (Sodium 1.5 gm/ Sodium Chloride) 100 mls @ 200 mls/hr IVPB Q6H-IV [facility] Last Admin: 03/03/20 03:56 Dose: 200 mls/hr Documented by: Insulin Aspart (Novolog Vial Sliding Scale -) 1 vial SQ ACHS [facility]; Protocol Last Admin: 03/03/20 06:13 Dose: Not Given Documented by: Insulin Detemir (Levemir Vial) 36 units SQ AM [facility] Last Admin: 03/03/20 06:17 Dose: Not Given Documented by: Lisinopril (Prinivil) 20 mg GT DAILY [facility] Metformin HCl (Glucophage -) 500 mg GT BID@0700,1630 [facility] Last Admin: 03/03/20 06:57 Dose: Not Given Documented by: Mirtazapine (Remeron -) 7.5 mg GT HS [facility] Last Admin: 03/02/20 23:12 Dose: Not Given Documented by: Multivitamins/Minerals/Vitamin C (Tab-A-Vit -) 1 tab NR DAILY [facility] Sertraline HCl (Zoloft -) 50 mg GT DAILY [facility] Sitagliptin Phosphate (Januvia -) 100 mg NR 0700 [facility] Last Admin: 03/03/20 06:57 Dose: Not Given Documented by: - Objective Vital Signs: Vital Signs Temperature 98.5 F 03/03/20 06:00 Pulse Rate 62 03/03/20 06:00 Respiratory Rate 20 03/03/20 06:00 Blood Pressure 118/63 03/03/20 06:00 O2 Sat by Pulse Oximetry (%) 93 L 03/03/20 06:40 Cardiovascular: Yes: S1, S2 Respiratory: Yes: Diminished, Rhonchi Gastrointestinal: Yes: Normal Bowel Sounds, Soft Labs: CBC, BMP 03/03/20 06:58 03/03/20 06:58 INR, PTT INR 1.05 (0.83-1.09) 02/21/20 02:45 Problem List - Problems (1) Cerebrovascular accident (CVA) Code(s): I63.9 - CEREBRAL INFARCTION, UNSPECIFIED Qualifiers: CVA mechanism: unspecified Qualified Code(s): I63.9 - Cerebral infarction, unspecified (2) Facial droop Code(s): R29.810 - FACIAL WEAKNESS (3) Diabetes Code(s): E11.9 - TYPE 2 DIABETES MELLITUS WITHOUT COMPLICATIONS Qualifiers: Diabetes mellitus type: type 2 (4) Hypertension Code(s): I10 - ESSENTIAL (PRIMARY) HYPERTENSION (5) Electrolyte abnormality Code(s): E87.8 - OTH DISORDERS OF ELECTROLYTE AND FLUID BALANCE, NEC (6) Carotid stenosis Code(s): I65.29 - OCCLUSION AND STENOSIS OF UNSPECIFIED CAROTID ARTERY (7) Dysphagia as late effect of cerebrovascular accident (CVA) Code(s): I69.391 - DYSPHAGIA FOLLOWING CEREBRAL INFARCTION Assessment/Plan 59 year old female with a significant past medical history of diabetes, htn, previous cva a couple months ago presented to the ED this morning after son noted a left facial droop. He reported pt having dizziness last night which didnt resolve this am. Denies any preceding trauma, no falls. As per chart, pt's son reported some residual right sided weakness after her last stroke. No cp, sob, n/v/f/c; had some nausea/vomiting with dizziness this am Denies any fevers, chills, cough or sob (1) Cerebrovascular accident (CVA) Assessment/Plan: -First CT Head on 02/21/20:Chronic left occipital cortical infarct as described above. A subtle punctate chronic left thalamic infarct is noted on the current study which cannot be definitely visualized on the prior exam. Punctate chronic right basal ganglia infarct as also seen on the previous exam. Mild periventricular chronic microvascular ischemic changes. -Repeat CT head 41-42-Ehcsmoztnigwkaaz/chronic infarct in the left occipital lobe is again seen. No gross CT evidence of acute intracranial pathology is identified. -ASA -Restart Plavix -Statin -Seen by Neurology -MBS:There is risk of aspiration, dehydration, malnutrition due to impaired laryngeal excursion, buildup in the piriform sinuses, recurrent aspiration. Swallowing is somewhat functional but with clear risks at this time. I believe the more she swallows, the better his swallow will function. I suspect swallowing will improve and hope that patient will not develop a pneumonia and will achieve sufficient nutrition before this happens. Patient needs very close monitoring. -MRI brain 02/21:1.2 cm acute nonhemorrhagic infarction left cerebellar peduncle. Ischemic changes in the abdirahman and in the white matter of both cerebral hemispheres sequela most probably to long-standing hypertension or small vessel atherosclerosis. Old completed infarction left occipital lobe with residual encephalomalacia. Basilar artery and cavernous portions internal carotid arteries unremarkable. -CTA neck 02/20:Tiny plaque at the left common carotid bifurcation/bulb without evidence of hemodynamically significant stenosis Moderate size calcified plaque with hemodynamically significant stenosis at the right common carotid bifurcation with approximately 70% narrowing of its lumen Hypoplastic distal left vertebral artery that could be traced up to the level of C1 as it enters the spinal canal. Normal enhancement of the right vertebral artery without gross evidence of stenosis. Intracranially, there is persistent origin of the left posterior cerebral artery with s ignificantly attenuated/absence of enhancement of the P2 branches consistent with the known left occ ipital lobe chronic infarct Otherwise, no gross major artery cutoff, focal hemodynamically significant stenosis, aneurysm or vascular malformation is identified within the central intracranial arterial circulation. Problems reviewed: Yes Code(s): I63.9 - CEREBRAL INFARCTION, UNSPECIFIED Qualifiers: CVA mechanism: unspecified Qualified Code(s): I63.9 - Cerebral infarction, unspecified (2) Diabetes Assessment/Plan: -A1c at 9.3 -BGM AC HS -ISS -Levemir -Endocrinology consult appreciated -Diabetic low sodium dysphagia pureed diet with nectar thick liquids Problems reviewed: Yes Code(s): E11.9 - TYPE 2 DIABETES MELLITUS WITHOUT COMPLICATIONS Qualifiers: Diabetes mellitus type: type 2 (3) Dysphagia as late effect of cerebrovascular accident (CVA) Assessment/Plan: -Seen by speech pathology -Encourage PO intake -Added multivitamin + Remeron -Hold Plavix--Gi for PEG Problems reviewed: Yes Code(s): I69.391 - DYSPHAGIA FOLLOWING CEREBRAL INFARCTION (4) Carotid stenosis Assessment/Plan: -Seen by Vascular surgery -No surgical intervention recommended at this time Problems reviewed: Yes Code(s): I65.29 - OCCLUSION AND STENOSIS OF UNSPECIFIED CAROTID ARTERY (5) Hypertension Assessment/Plan: -Seen by cardiology -Increase lisinopril 20 mg po daily Problems reviewed: Yes Code(s): I10 - ESSENTIAL (PRIMARY) HYPERTENSION
--- NOTE | 2020-03-03 09:04 | PN ---
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 (short form) - Note 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: Plavix held (last dose 03/02) To inititate NGT feeds Plan for PEG Wednesday 03/14 OK to continue ASA for PEG in setting of CVA
[2020-03-03] MEDS: HEPARIN NA (PORCINE) 5,000 UNITS/ML 1ML VIAL SQ SCH ×2 (09:50→21:12)
[2020-03-03] MEDS ORDERED: PT OWN MED DRAWER 7, Y5N ONE (10:00)
[2020-03-03] MEDS ORDERED: ASPIRIN 325 MG TABLET GT SCH (10:00)
[2020-03-03] MEDS: AMINO ACIDS/PROTEIN HYDROLYS 30 ML LIQUID.PKT GT SCH ×2 (10:02→17:28)
[2020-03-03] MEDS: MULTIVITAMINS (DAILY MVI) TABLET (FP) NR SCH (10:03)
[2020-03-03] MEDS: LISINOPRIL 20 MG TABLET (FP) GT SCH (10:03)
[2020-03-03] MEDS: FAMOTIDINE 40 MG/5 ML ORAL SUSPENSION NGT SCH (10:03)
[2020-03-03] MEDS: SERTRALINE HCL 50 MG TABLET (FP) GT SCH (10:03)
[2020-03-03] MEDS: BENZTROPINE MESYLATE 0.5 MG TABLET (FP) GT SCH (10:04)
--- NOTE | 2020-03-03 11:03 | PN ---
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 Intermittent cough with PO trials. Selected Entries 03/02/20 03/02/20 03/02/20 11:58 19:18 19:39 Breakfast 25% Diet Tolerated Poor Supper NPO NPO Temperature Pulse Rate Blood Pressure 03/03/20 03/03/20 06:00 09:55 Breakfast Diet Tolerated Supper Temperature 98.5 F 97.6 F Pulse Rate 62 67 Blood Pressure 118/63 166/79 Laboratory Tests 03/01/20 03/02/20 03/03/20 06:15 11:35 06:58 WBC 17.1 H 12.8 H 12.6 H NGT placed. For MBS Saturday.
[2020-03-03] MEDS: KCL 10 MEQ IVPB 10 MEQ/100 ML INFUS.BAG IVPB SCH ×2 (11:20→13:13)
--- NOTE | 2020-03-03 13:52 | PN ---
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 Patient is arleady on plavix and statin. She also have history of htn, hld [facility] for [facility] and facial droopiness. She describes dizziness as spinning sensation. Patent has ct head no acute findings. Ther eis left occipital infarct mri of brain showed left cerebellar peducnle stroke and right ica stenosis repeat ct scan stable waiting for peg tube placement neurological examination Alert oriented x 2, speech is normal, neck is supple vss eomi, pupil reactive , left facial droopiness ? lmn type there is mild right arm weakness sensation is normal reflex are normal bilaterally ct head old left occpital stroke mri of brain showed there is left cerebellar peduncle ischemic lesion cta of neck showed there is right ica [address] head unremarkable, as patient has fall on february 21 vascular surgery consult no need for any surgery Assessment/Plan -1. left cebellar acute stroke , also have history of left occpital stroke - swallowing difficulty secondary to stroke, improved and peg tube on hold for now Plan:- - pending loop recording - peg tube placement ( plavix on hold) - Id consult appreciated would continue to follow Tigre guerrero so much Osman Orozoc MD
[2020-03-03] MEDS: ASPIRIN 325 MG TABLET GT SCH (17:27)
[2020-03-03] MEDS ORDERED: INSULIN (NOVOLOG) ASPART 100 UNITS/ML 10ML VIAL ONE (18:49)
[2020-03-03] MEDS: ATORVASTATIN CA 40 MG TABLET (FP) GT SCH (21:12)
[2020-03-03] MEDS: MIRTAZAPINE 15 MG TABLET (FP) GT SCH (21:12)
[2020-03-04] MEDS ORDERED: AMPICILLIN NA/SULBACTAM NA 1.5 GM VIAL ONE ×4 (01:30→20:05)
[2020-03-04] MEDS ORDERED: SODIUM CHLORIDE 100 ML IVPB ONE ×4 (01:31→20:05)
[2020-03-04] MEDS: AMPICILLIN NA/SULBACTAM NA 1.5 GM in SODIUM CHLORIDE 100 ML IVPB SCH ×4 (03:08→20:41)
[2020-03-04] MEDS: metFORMIN HCL 500 MG TABLET (FP) GT SCH ×2 (06:16→17:57)
[2020-03-04] MEDS: sitaGLIPtin PHOSPHATE 50 MG TABLET NR SCH (06:16)
[2020-03-04] MEDS: INSULIN SLIDING SCALE (NOVOLOG) 1 VIAL SQ SCH ×4 (06:27→21:38)
[2020-03-04] MEDS: INSULIN (LEVEMIR) 100 UNITS/ML UNITS SQ SCH (06:27)
[2020-03-04 08:07] LABS: BASO % 0.6 % (0-2.0); HEMATOCRIT 35.4 % (32.4-45.2); HEMOGLOBIN 12.1 GM/dL (10.7-15.3); LYMPH % 18.5 % (8-40); MCHC 34.1 g/dl (32.0-36.0); MEAN CELL VOLUME 85.1 fl (80-96); MEAN PLT VOLUME 8.3 fl (7.5-11.1); MONO % 7.9 % (3.8-10.2); PLATELET COUNT 285 K/MM3 (134-434); RBC 4.16 M/mm3 (3.60-5.2); RDW 14.3 % (11.6-15.6); WHITE BLOOD COUNT 13.4 K/mm3 (4.0-10.0)
[2020-03-04 08:28] LABS: ALBUMIN 3.4 g/dl (3.4-5.0); BILIRUBIN,TOTAL 0.5 mg/dL (0.2-1); CALCIUM 9.4 mg/dL (8.5-10.1); CREATININE 0.4 mg/dL (0.55-1.3); POTASSIUM 3.6 mmol/L (3.5-5.1); TOT PROT 6.9 g/dl (6.4-8.2)
--- NOTE | 2020-03-04 09:05 | PN ---
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, Physician Chief Complaint: CVA Uncontrolled diabetes mellitus Leukocytosis History of Present Illness: NAD, In bed this AM feels tired Verbal Tells me her name and knows shes in the hospital NGT dislodged during PT work Last CXR shows increase central markings On IV abx for aspiration pneumonia Pt is awaiting PEG Last dose of plavix on 03/02/20 To constinue Asa as per GI - Current Medication List Current Medications: Active Medications Amino Acids (Prosource No Carb Liquid Pkt) 30 ml GT BID@0800,1730 [facility] Last Admin: 03/03/20 17:28 Dose: 30 ml Documented by: Aspirin (Asa -) 325 mg GT DAILY [facility] Last Admin: 03/03/20 17:27 Dose: 325 mg Documented by: Atorvastatin Calcium (Lipitor -) 40 mg GT HS [facility] Last Admin: 03/03/20 21:12 Dose: 40 mg Documented by: Benztropine Mesylate (Cogentin -) 0.5 mg GT DAILY [facility] Last Admin: 03/03/20 10:04 Dose: 0.5 mg Documented by: Clopidogrel Bisulfate (Plavix -) 75 mg GT DAILY [facility] Famotidine (Pepcid) 20 mg NGT DAILY [facility] Last Admin: 03/03/20 10:03 Dose: 20 mg Documented by: Heparin Sodium (Porcine) (Heparin -) 5,000 unit SQ BID [facility] Last Admin: 03/03/20 21:12 Dose: 5,000 unit Documented by: Ampicillin Sodium/Sulbactam (Sodium 1.5 gm/ Sodium Chloride) 100 mls @ 200 mls/hr IVPB Q6H-IV [facility] Last Admin: 03/04/20 03:08 Dose: 200 mls/hr Documented by: Insulin Aspart (Novolog Vial Sliding Scale -) 1 vial SQ ACHS [facility]; Protocol Last Admin: 03/04/20 06:27 Dose: 2 units Documented by: Insulin Detemir (Levemir Vial) 36 units SQ AM [facility] Last Admin: 03/04/20 06:27 Dose: 36 units Documented by: Lisinopril (Prinivil) 20 mg GT DAILY [facility] Last Admin: 03/03/20 10:03 Dose: 20 mg Documented by: Metformin HCl (Glucophage -) 500 mg GT BID@0700,1630 [facility] Last Admin: 03/04/20 06:16 Dose: 500 mg Documented by: Mirtazapine (Remeron -) 7.5 mg GT HS [facility] Last Admin: 03/03/20 21:12 Dose: 7.5 mg Documented by: Multivitamins/Minerals/Vitamin C (Tab-A-Vit -) 1 tab NR DAILY [facility] Last Admin: 03/03/20 10:03 Dose: 1 tab Documented by: Sertraline HCl (Zoloft -) 50 mg GT DAILY [facility] Last Admin: 03/03/20 10:03 Dose: 50 mg Documented by: Sitagliptin Phosphate (Januvia -) 100 mg NR 0700 [facility] Last Admin: 03/04/20 06:16 Dose: 100 mg Documented by: - Objective Vital Signs: Vital Signs Temperature 98.2 F 03/04/20 06:30 Pulse Rate 86 03/04/20 06:30 Respiratory Rate 20 03/04/20 06:30 Blood Pressure 152/91 03/04/20 06:30 O2 Sat by Pulse Oximetry (%) 97 03/04/20 06:30 Constitutional: Yes: Well Nourished, No Distress, Calm Cardiovascular: Yes: Regular Rate and Rhythm Respiratory: Yes: Regular, CTA Bilaterally Gastrointestinal: Yes: Normal Bowel Sounds, Soft Genitourinary: Yes: Damon Present Musculoskeletal: Yes: Muscle Weakness Extremities: Yes: WNL Edema: No Peripheral Pulses WNL: Yes Neurological: Yes: Alert, Pre-Existing Deficit Psychiatric: Yes: Alert Labs: CBC, BMP 03/04/20 07:20 03/04/20 07:20 INR, PTT INR 1.05 (0.83-1.09) 02/21/20 02:45 Problem List - Problems (1) Cerebrovascular accident (CVA) Assessment/Plan: -First CT Head on 02/21/20:Chronic left occipital cortical infarct as described above. A subtle punctate chronic left thalamic infarct is noted on the current study which cannot be definitely visualized on the prior exam. Punctate chronic right basal ganglia infarct as also seen on the previous exam. Mild periventricular chronic microvascular ischemic changes. -Repeat CT head 02/2526-45-Yejuavtvlpyzfjoa/chronic infarct in the left occipital lobe is again seen. No gross CT evidence of acute intracranial pathology is identified. -Continue ASA -Plavix on hold for PEG early next week, last dose given on 03/02/20 -Statin -Seen by Neurology -MBS:There is risk of aspiration, dehydration, malnutrition due to impaired laryngeal excursion, buildup in the piriform sinuses, recurrent aspiration. Swallowing is somewhat functional but with clear risks at this time. I believe the more she swallows, the better his swallow will function. I suspect swallowing will improve and hope that patient will not develop a pneumonia and will achieve sufficient nutrition before this happens. Patient needs very close monitoring. -MRI brain 02/21:1.2 cm acute nonhemorrhagic infarction left cerebellar peduncle. Ischemic changes in the abdirahman and in the white matter of both cerebral hemispheres sequela most probably to long-standing hypertension or small vessel atherosclerosis. Old completed infarction left occipital lobe with residual encephalomalacia. Basilar artery and cavernous portions internal carotid arteries unremarkable. -CTA neck 02/20:Tiny plaque at the left common carotid bifurcation/bulb without evidence of hemodynamically significant stenosis Moderate size calcified plaque with hemodynamically significant stenosis at the right common carotid bifurcation with approximately 70% narrowing of its lumen Hypoplastic distal left vertebral artery that could be traced up to the level of C1 as it enters the spinal canal. Normal enhancement of the right vertebral artery without gross evidence of stenosis. Intracranially, there is persistent origin of the left posterior cerebral artery with s ignificantly attenuated/absence of enhancement of the P2 branches consistent with the known left occ ipital lobe chronic infarct Otherwise, no gross major artery cutoff, focal hemodynamically significant stenosis, aneurysm or vascular malformation is identified within the central intracranial arterial circulation. Problems reviewed: Yes Code(s): I63.9 - CEREBRAL INFARCTION, UNSPECIFIED Qualifiers: CVA mechanism: unspecified Qualified Code(s): I63.9 - Cerebral infarction, unspecified (2) Diabetes Assessment/Plan: -A1c at 9.3 -BGM [facility] -ISS -Levemir -Endocrinology consult appreciated -Diabetic low sodium dysphagia pureed diet Problems reviewed: Yes Code(s): E11.9 - TYPE 2 DIABETES MELLITUS WITHOUT COMPLICATIONS Qualifiers: Diabetes mellitus type: type 2 (3) Dysphagia as late effect of cerebrovascular accident (CVA) Assessment/Plan: -Seen by speech pathology -TF via NGT -multivitamin + Remeron -CXR some increased central markings -HOB >40 degrees -PEG early next week -GI on board Problems reviewed: Yes Code(s): I69.391 - DYSPHAGIA FOLLOWING CEREBRAL INFARCTION (4) Carotid stenosis Assessment/Plan: -Seen by Vascular surgery -No surgical intervention recommended at this time Problems reviewed: Yes Code(s): I65.29 - OCCLUSION AND STENOSIS OF UNSPECIFIED CAROTID ARTERY (5) Hypertension Assessment/Plan: -Seen by cardiology -Increase lisinopril to 30 mg GT daily Problems reviewed: Yes Code(s): I10 - ESSENTIAL (PRIMARY) HYPERTENSION Assessment/Plan See problem list
--- NOTE | 2020-03-04 10:43 | PN ---
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 Intermittent cough with PO trials. Selected Entries 03/02/20 03/02/20 03/02/20 11:58 19:18 19:39 Breakfast 25% Diet Tolerated Poor Supper NPO NPO Temperature Pulse Rate Blood Pressure 03/03/20 03/03/20 06:00 09:55 Breakfast Diet Tolerated Supper Temperature 98.5 F 97.6 F Pulse Rate 62 67 Blood Pressure 118/63 166/79 Laboratory Tests 03/01/20 03/02/20 03/03/20 06:15 11:35 06:58 WBC 17.1 H 12.8 H 12.6 H Selected Entries 03/03/20 03/04/20 18:19 06:30 Supper NPO Temperature 98.2 F Pulse Rate 86 Blood Pressure 152/91 Laboratory Tests 03/01/20 03/02/20 03/03/20 06:15 11:35 06:58 WBC 17.1 H 12.8 H 12.6 H 03/04/20 07:20 WBC 13.4 H NGT placed. NPO For MBS Saturday. Eyes closed but easily arousable. Follows commands. Verbal. Speech more precise, stronger,good voicing. Mild imprecision today. Oriented to hospital. For acute rehabilitation to maximize potential.
[2020-03-04] MEDS ORDERED: PT OWN MED DRAWER 7, Y5N ONE (11:30)
[2020-03-04] MEDS: AMINO ACIDS/PROTEIN HYDROLYS 30 ML LIQUID.PKT GT SCH ×2 (11:34→19:04)
[2020-03-04] MEDS: MULTIVITAMINS (DAILY MVI) TABLET (FP) NR SCH (11:35)
[2020-03-04] MEDS: HEPARIN NA (PORCINE) 5,000 UNITS/ML 1ML VIAL SQ SCH ×2 (11:35→21:34)
[2020-03-04] MEDS: SERTRALINE HCL 50 MG TABLET (FP) GT SCH (11:35)
[2020-03-04] MEDS: LISINOPRIL 20 MG TABLET (FP) GT SCH (11:35)
[2020-03-04] MEDS: BENZTROPINE MESYLATE 0.5 MG TABLET (FP) GT SCH (11:36)
[2020-03-04] MEDS: ASPIRIN 325 MG TABLET GT SCH (11:36)
[2020-03-04] MEDS: FAMOTIDINE 40 MG/5 ML ORAL SUSPENSION NGT SCH (11:36)
--- NOTE | 2020-03-04 12:19 | PN ---
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 Patient is arleady on plavix and statin. She also have history of htn, [facility] and facial droopiness. She describes dizziness as spinning sensation. Patent has ct head no acute findings. Ther eis left occipital infarct mri of brain showed left cerebellar peducnle stroke and right ica stenosis repeat ct scan stable waiting for peg tube placement , schedule for peg tube tomorrow. neurological examination Alert oriented x 2, speech is normal, neck is supple vss eomi, pupil reactive , left facial droopiness ? lmn type there is mild right arm weakness sensation is normal reflex are normal bilaterally ct head old left occpital stroke mri of brain showed there is left cerebellar peduncle ischemic lesion cta of neck showed there is right ica [address] head unremarkable, as patient has fall on february 21 vascular surgery consult no need for any surgery Assessment/Plan -1. left cebellar acute stroke , also have history of left occpital stroke - swallowing difficulty secondary to stroke, improved and peg tube on hold for now Plan:- - pending loop recording - peg tube placement ( plavix on hold) - Id consult appreciated would continue to follow Tigre guerrero so much Osman Orozco MD
--- NOTE | 2020-03-04 13:30 | PN ---
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 (short form) - Note 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: now with ngt for repeat MBS on Saturday Vital Signs Period Temp Pulse Resp BP Sys/Gregory Pulse Ox Last 24 Hr 98 F-98.8 F 68-86 20-20 151-156/71-91 95-97 cor-rrr lungs scattred rhonchi abd soft,nt ext no edema CBC, BMP 03/04/20 07:20 03/04/20 07:20 Microbiology 03/01/20 20:30 Blood - Peripheral Venous Blood Culture - Preliminary NO GROWTH OBTAINED AFTER 48 HOURS, INCUBATION TO CONTINUE FOR 3 DAYS. 03/01/20 20:30 Blood - Peripheral Venous Blood Culture - Preliminary NO GROWTH OBTAINED AFTER 48 HOURS, INCUBATION TO CONTINUE FOR 3 DAYS. 02/21/20 04:16 Urine - Urine Clean Catch Urine Culture - Final Normal Urogenital Holli a/p probable aspiration pneumonia- aspiration precautions unasyn day #3 f/u MBS on Saturday s/p CVA Problem List - Problems (1) Leukocytosis Code(s): D72.829 - ELEVATED WHITE BLOOD CELL COUNT, UNSPECIFIED (2) Aspiration pneumonia Code(s): J69.0 - PNEUMONITIS DUE TO INHALATION OF FOOD AND VOMIT (3) Cerebrovascular accident (CVA) Code(s): I63.9 - CEREBRAL INFARCTION, UNSPECIFIED Qualifiers: CVA mechanism: unspecified Qualified Code(s): I63.9 - Cerebral infarction, unspecified (4) Diabetes Code(s): E11.9 - TYPE 2 DIABETES MELLITUS WITHOUT COMPLICATIONS Qualifiers: Diabetes mellitus type: type 2
[2020-03-04] MEDS ORDERED: INSULIN (NOVOLOG) ASPART 100 UNITS/ML 10ML VIAL ONE (20:52)
[2020-03-04] MEDS: MIRTAZAPINE 15 MG TABLET (FP) GT SCH (21:34)
[2020-03-04] MEDS: ATORVASTATIN CA 40 MG TABLET (FP) GT SCH (21:34)
[2020-03-05] MEDS ORDERED: AMPICILLIN NA/SULBACTAM NA 1.5 GM VIAL ONE ×2 (00:58→08:46)
[2020-03-05] MEDS ORDERED: SODIUM CHLORIDE 100 ML IVPB ONE ×2 (00:58→08:46)
[2020-03-05] MEDS: AMPICILLIN NA/SULBACTAM NA 1.5 GM in SODIUM CHLORIDE 100 ML IVPB SCH ×2 (03:18→09:00)
[2020-03-05] MEDS: INSULIN SLIDING SCALE (NOVOLOG) 1 VIAL SQ SCH ×4 (06:02→21:38)
[2020-03-05] MEDS: sitaGLIPtin PHOSPHATE 50 MG TABLET NR SCH (06:03)
[2020-03-05] MEDS: metFORMIN HCL 500 MG TABLET (FP) GT SCH ×2 (06:03→17:48)
[2020-03-05] MEDS: INSULIN (LEVEMIR) 100 UNITS/ML UNITS SQ SCH (06:05)
[2020-03-05 07:31] LABS: BASO % 0.6 % (0-2.0); EOS % 0.3 % (0-4.5); HEMATOCRIT 36.5 % (32.4-45.2); HEMOGLOBIN 12.2 GM/dL (10.7-15.3); LYMPH % 14.3 % (8-40); MCHC 33.3 g/dl (32.0-36.0); MEAN CELL VOLUME 83.9 fl (80-96); MEAN PLT VOLUME 8.3 fl (7.5-11.1); MONO % 8.4 % (3.8-10.2); NEUT % 76.4 % (42.8-82.8); PLATELET COUNT 316 K/MM3 (134-434); RBC 4.35 M/mm3 (3.60-5.2); RDW 14.4 % (11.6-15.6); WHITE BLOOD COUNT 15.9 K/mm3 (4.0-10.0)
[2020-03-05 07:53] LABS: ALBUMIN 3.4 g/dl (3.4-5.0); BLOOD UREA NITROGEN 18.5 mg/dL (7-18); CALCIUM 9.2 mg/dL (8.5-10.1); CREATININE 0.4 mg/dL (0.55-1.3); POTASSIUM 3.5 mmol/L (3.5-5.1); TOT PROT 6.9 g/dl (6.4-8.2)
[2020-03-05] MEDS: AMINO ACIDS/PROTEIN HYDROLYS 30 ML LIQUID.PKT GT SCH ×2 (08:59→17:48)
[2020-03-05] MEDS ORDERED: PT OWN MED DRAWER 7, Y5N ONE (09:47)
[2020-03-05] MEDS: MULTIVITAMINS (DAILY MVI) TABLET (FP) NR SCH (09:48)
[2020-03-05] MEDS: SERTRALINE HCL 50 MG TABLET (FP) GT SCH (09:48)
[2020-03-05] MEDS: LISINOPRIL 10 MG TABLET (FP) GT SCH (09:48)
[2020-03-05] MEDS: BENZTROPINE MESYLATE 0.5 MG TABLET (FP) GT SCH (09:49)
[2020-03-05] MEDS: FAMOTIDINE 40 MG/5 ML ORAL SUSPENSION NGT SCH (09:49)
[2020-03-05] MEDS: ASPIRIN 325 MG TABLET GT SCH (09:49)
[2020-03-05] MEDS: HEPARIN NA (PORCINE) 5,000 UNITS/ML 1ML VIAL SQ SCH ×2 (09:50→21:35)
--- NOTE | 2020-03-05 11:09 | PN ---
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 (short form) - Note 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: now with ngt for repeat MBS on Saturday keeps pulling out ngt Vital Signs Period Temp Pulse Resp BP Sys/Gregory Pulse Ox Last 24 Hr 98.4 F-99.4 F 71-82 20-20 148-165/60-82 95-97 cor-rrr lungs bilateral rhonch iabd soft,nt ext no edema CBC, BMP 03/05/20 06:30 03/05/20 06:30 Microbiology 03/01/20 20:30 Blood - Peripheral Venous Blood Culture - Preliminary NO GROWTH OBTAINED AFTER 72 HOURS, INCUBATION TO CONTINUE FOR 2 DAYS. 03/01/20 20:30 Blood - Peripheral Venous Blood Culture - Preliminary NO GROWTH OBTAINED AFTER 72 HOURS, INCUBATION TO CONTINUE FOR 2 DAYS. 02/21/20 04:16 Urine - Urine Clean Catch Urine Culture - Final Normal Urogenital Holli cxray-increaseing infiltrate a/p probable aspiration pneumonia- aspiration precautions switch to zosyn and vanco f/u MBS on Saturday s/p CVA Problem List - Problems (1) Leukocytosis Code(s): D72.829 - ELEVATED WHITE BLOOD CELL COUNT, UNSPECIFIED (2) Aspiration pneumonia Code(s): J69.0 - PNEUMONITIS DUE TO INHALATION OF FOOD AND VOMIT (3) Cerebrovascular accident (CVA) Code(s): I63.9 - CEREBRAL INFARCTION, UNSPECIFIED Qualifiers: CVA mechanism: unspecified Qualified Code(s): I63.9 - Cerebral infarction, unspecified (4) Diabetes Code(s): E11.9 - TYPE 2 DIABETES MELLITUS WITHOUT COMPLICATIONS Qualifiers: Diabetes mellitus type: type 2
--- NOTE | 2020-03-05 13:21 | PN ---
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 Patient is arleady on plavix and statin. She also have history of htn, [facility] and facial droopiness. She describes dizziness as spinning sensation. Patent has ct head no acute findings. Ther eis left occipital infarct mri of brain showed left cerebellar peducnle stroke and right ica stenosis repeat ct scan stable patient is seems to be bright today, no new symptoms, feeding by ng tube neurological examination Alert oriented x 2, speech is normal, neck is supple vss eomi, pupil reactive , left facial droopiness ? lmn type there is mild right arm weakness sensation is normal reflex are normal bilaterally ct head old left occpital stroke mri of brain showed there is left cerebellar peduncle ischemic lesion cta of neck showed there is right ica [address] head unremarkable, as patient has fall on february 21 vascular surgery consult no need for any surgery Assessment/Plan -1. left cebellar acute stroke , also have history of left oc cpital stroke - swallowing difficulty secondary to stroke,peg tube placement on saturday Plan:- - pending loop recording - peg tube placement ( plavix on hold) on saturday - Id consult appreciated would continue to follow Tigre guerrero so much Osman Orozco MD
[2020-03-05] MEDS: VANCOMYCIN 1 GRAM (PRE-DOCKED) 1,000 MG/250 ML BAG IVPB SCH (14:10)
--- NOTE | 2020-03-05 14:31 | PN ---
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, Physician Chief Complaint: AWAKE ALERT NGT IN PLACE HAND MITTENS FOR SAFETY OF EQUIPMENT - Current Medication List Current Medications: Active Medications Amino Acids (Prosource No Carb Liquid Pkt) 30 ml GT BID@0800,1730 [facility] Last Admin: 03/05/20 08:59 Dose: 30 ml Documented by: Aspirin (Asa -) 325 mg GT DAILY [facility] Last Admin: 03/05/20 09:49 Dose: 325 mg Documented by: Atorvastatin Calcium (Lipitor -) 40 mg GT HS [facility] Last Admin: 03/04/20 21:34 Dose: 40 mg Documented by: Benztropine Mesylate (Cogentin -) 0.5 mg GT DAILY [facility] Last Admin: 03/05/20 09:49 Dose: 0.5 mg Documented by: Clopidogrel Bisulfate (Plavix -) 75 mg GT DAILY [facility] Famotidine (Pepcid) 20 mg NGT DAILY [facility] Last Admin: 03/05/20 09:49 Dose: 20 mg Documented by: Heparin Sodium (Porcine) (Heparin -) 5,000 unit SQ BID [facility] Last Admin: 03/05/20 09:50 Dose: 5,000 unit Documented by: Piperacillin Sod/Tazobactam (Sod 4.5 gm/ Dextrose) 100 mls @ 200 mls/hr IVPB Q8H-IV [facility]; Protocol Vancomycin HCl (Vancomycin (Pre-Docked)) 1,000 mg in 250 mls @ 166.667 mls/hr IVPB Q24H [facility]; Protocol Last Admin: 03/05/20 14:10 Dose: 166.667 mls/hr Documented by: Insulin Aspart (Novolog Vial Sliding Scale -) 1 vial SQ ACHS [facility]; Protocol Last Admin: 03/05/20 13:02 Dose: Not Given Documented by: Insulin Detemir (Levemir Vial) 36 units SQ AM [facility] Last Admin: 03/05/20 06:05 Dose: 36 units Documented by: Lisinopril (Prinivil) 30 mg GT DAILY [facility] Last Admin: 03/05/20 09:48 Dose: 30 mg Documented by: Metformin HCl (Glucophage -) 500 mg GT BID@0700,1630 [facility] Last Admin: 03/05/20 06:03 Dose: 500 mg Documented by: Mirtazapine (Remeron -) 7.5 mg GT HS [facility] Last Admin: 03/04/20 21:34 Dose: 7.5 mg Documented by: Multivitamins/Minerals/Vitamin C (Tab-A-Vit -) 1 tab NR DAILY [facility] Last Admin: 03/05/20 09:48 Dose: 1 tab Documented by: Sertraline HCl (Zoloft -) 50 mg GT DAILY [facility] Last Admin: 03/05/20 09:48 Dose: 50 mg Documented by: Sitagliptin Phosphate (Januvia -) 100 mg NR 0700 [facility] Last Admin: 03/05/20 06:03 Dose: 100 mg Documented by: - Objective Vital Signs: Vital Signs Temperature 98.8 F 03/05/20 04:27 Pulse Rate 77 03/05/20 04:27 Respiratory Rate 20 03/05/20 04:27 Blood Pressure 160/71 03/05/20 04:27 O2 Sat by Pulse Oximetry (%) 95 03/05/20 05:49 Constitutional: Yes: Mild Distress Cardiovascular: Yes: Regular Rate and Rhythm Respiratory: Yes: Diminished Gastrointestinal: Yes: Other (NGT) Genitourinary: Yes: Damon Present Musculoskeletal: Yes: Muscle Weakness Edema: No Neurological: Yes: Weakness Labs: CBC, BMP 03/05/20 06:30 03/05/20 06:30 INR, PTT INR 1.05 (0.83-1.09) 02/21/20 02:45 Problem List - Problems (1) Aspiration pneumonia Code(s): J69.0 - PNEUMONITIS DUE TO INHALATION OF FOOD AND VOMIT (2) Cerebrovascular accident (CVA) Code(s): I63.9 - CEREBRAL INFARCTION, UNSPECIFIED Qualifiers: CVA mechanism: unspecified Qualified Code(s): I63.9 - Cerebral infarction, unspecified (3) Diabetes Code(s): E11.9 - TYPE 2 DIABETES MELLITUS WITHOUT COMPLICATIONS Qualifiers: Diabetes mellitus type: type 2 (4) Dysphagia as late effect of cerebrovascular accident (CVA) Code(s): I69.391 - DYSPHAGIA FOLLOWING CEREBRAL INFARCTION (5) Electrolyte abnormality Code(s): E87.8 - OTH DISORDERS OF ELECTROLYTE AND FLUID BALANCE, NEC (6) Facial droop Code(s): R29.810 - FACIAL WEAKNESS (7) Hypertension Code(s): I10 - ESSENTIAL (PRIMARY) HYPERTENSION (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
[2020-03-05] MEDS ORDERED: DEXTROSE 5%-WATER 100 ML IVPB ONE (17:46)
[2020-03-05] MEDS ORDERED: PIPERACILLIN/TAZOBACTAM 4.5 GM VIAL IVPB ONE (17:46)
[2020-03-05] MEDS: PIPERACILLIN/TAZOB 4.5 GM 4.5 GM in DEXTROSE 5%-WATER 100 ML IVPB SCH (17:48)
[2020-03-05] MEDS ORDERED: LABETALOL HCL 5 MG/1 ML (100MG/20 ML VIAL) IVPUSH ONE (20:35)
[2020-03-05] MEDS: ATORVASTATIN CA 40 MG TABLET (FP) GT SCH (21:35)
[2020-03-05] MEDS: MIRTAZAPINE 15 MG TABLET (FP) GT SCH (21:35)
[2020-03-05] MEDS ORDERED: NITROGLYCERIN 2% OINTMENT - 1GM PACKET TD ONE (22:16)
[2020-03-06] MEDS ORDERED: DEXTROSE 5%-WATER 100 ML IVPB ONE ×3 (00:25→17:45)
[2020-03-06] MEDS ORDERED: PIPERACILLIN/TAZOBACTAM 4.5 GM VIAL IVPB ONE ×3 (00:25→17:44)
--- NOTE | 2020-03-06 01:37 | RAPID ---
Physical Examination Vital Signs: Vital Signs Temperature 98.5 F 03/05/20 20:14 Pulse Rate 75 03/05/20 22:10 Respiratory Rate 20 03/05/20 22:10 Blood Pressure 194/89 H 03/05/20 22:10 O2 Sat by Pulse Oximetry (%) 97 03/05/20 21:00 Constitutional: Yes: Diaphoresis Cardiovascular: Yes: Regular Rate and Rhythm Respiratory: Yes: On Nasal O2, Rhonchi, SOB, Tachypnea Gastrointestinal: Yes: Distention Extremities: Yes: Other (legs have mild edema but are equal size) Labs: CBC, BMP 03/05/20 06:30 03/05/20 06:30 Rapid Response - Rapid Response Assessment: Rapid response called at 1:17. Patient found tachypneic and sweating. The patient had pulled out her NG tube today and had a new one placed. Vitals: 99.6F, 157/89, 77bpm, 33 breaths per minute, 79% Room air improved to 94% on nasal cannula. Lungs sounded congested on exam. Patient was diaphoretic. Legs mildly swollen but equal size. CBC, CMP, blood cultures, and CXR ordered stat.
[2020-03-06] MEDS: PIPERACILLIN/TAZOB 4.5 GM 4.5 GM in DEXTROSE 5%-WATER 100 ML IVPB SCH ×3 (02:23→17:50)
[2020-03-06 02:55] LABS: BASO % 0.4 % (0-2.0); EOS % 0.8 % (0-4.5); HEMATOCRIT 36.3 % (32.4-45.2); HEMOGLOBIN 12.2 GM/dL (10.7-15.3); LYMPH % 15.3 % (8-40); MCH 28.6 pg (25.7-33.7); MCHC 33.5 g/dl (32.0-36.0); MEAN CELL VOLUME 85.4 fl (80-96); MEAN PLT VOLUME 8.8 fl (7.5-11.1); MONO % 7.9 % (3.8-10.2); NEUT % 75.6 % (42.8-82.8); PLATELET COUNT 299 K/MM3 (134-434); RBC 4.25 M/mm3 (3.60-5.2); RDW 14.6 % (11.6-15.6); WHITE BLOOD COUNT 17.2 K/mm3 (4.0-10.0)
[2020-03-06 03:17] LABS: ALBUMIN 3.3 g/dl (3.4-5.0); BILIRUBIN,TOTAL 0.6 mg/dL (0.2-1); BLOOD UREA NITROGEN 22.4 mg/dL (7-18); CALCIUM 9.4 mg/dL (8.5-10.1); CREATININE 0.4 mg/dL (0.55-1.3); POTASSIUM 3.4 mmol/L (3.5-5.1)
[2020-03-06] MEDS ORDERED: ACETAMINOPHEN 1000 MG/100 ML VIAL (NON FORMULARY) IVPB ONE (05:56)
[2020-03-06] MEDS: metFORMIN HCL 500 MG TABLET (FP) GT SCH (06:12)
[2020-03-06] MEDS: sitaGLIPtin PHOSPHATE 50 MG TABLET NR SCH (06:12)
--- NOTE | 2020-03-06 06:23 | PN ---
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 (short form) - Note 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: Episodic Note: 02/21@11:10pm Called by RN patient was found on the floor after responding to a bed alarm. Chart reviewed. Patient was seen and examined at bedside. She denies any chest pain, shortness of breath, dizziness or generalized pain. It is unclear if she hit her head . She has no signs of active bleeding . She is on heparin sq and asa therapy. She is hemodynamicallystable ast this time. CT scan of head to exclude bleed has been ordered. Continue with safety measures - side rails up X4 and bed alarm on. Visit type - Emergency Visit Emergency Visit: Yes ED Registration Date: 02/21/20 Care time: The patient presented to the Emergency Department on the above date and was hospitalized for further evaluation of their emergent condition. - New Patient This patient is new to me today: Yes Date on this admission: 03/06/20 - Critical Care Critical Care patient: No - Discharge Referral Referred to [facility] No
--- NOTE | 2020-03-06 06:30 | PN ---
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 (short form) - Note 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: 03/06/2020 Episodic Note: Called by RN that patient is febrile (101.3). IV Ofirmev ordered and blood cultures drawn. She is continued on IV Vancomycin and pippercillin and followed by Infectious Diseases. She remains NPO . Repeat CXR is pending read for confirmation of NG tube placement. 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 Please review separate note by resident. She was also noted to be hypertensive last night. She was NPO as she pulled out NG tube. She was given topical nitropaste with improvement in blood pressure. Visit type - Emergency Visit Emergency Visit: Yes ED Registration Date: 02/21/20 Care time: The patient presented to the Emergency Department on the above date and was hospitalized for further evaluation of their emergent condition. - New Patient This patient is new to me today: No - Critical Care Critical Care patient: No - Discharge Referral Referred to [facility] No
[2020-03-06] MEDS: INSULIN SLIDING SCALE (NOVOLOG) 1 VIAL SQ SCH ×4 (06:33→21:28)
[2020-03-06] MEDS: INSULIN (LEVEMIR) 100 UNITS/ML UNITS SQ SCH (06:33)
[2020-03-06] MEDS ORDERED: INSULIN (LEVEMIR) 100 UNITS/ML UNITS SQ ONE (07:04)
[2020-03-06] MEDS ORDERED: INSULIN (NOVOLOG) ASPART 100 UNITS/ML 10ML VIAL ONE (07:04)
[2020-03-06] MEDS: AMINO ACIDS/PROTEIN HYDROLYS 30 ML LIQUID.PKT GT SCH (08:57)
[2020-03-06] MEDS ORDERED: POTASSIUM CHLORIDE ORAL LIQUID 20 MEQ/15 ML GT ONE (09:47)
--- NOTE | 2020-03-06 09:49 | PN ---
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, Physician Chief Complaint: PATIENT PULLED OUT NGT ONCE AGAIN RESTRAINTS REAPPLIED - Current Medication List Current Medications: Active Medications Amino Acids (Prosource No Carb Liquid Pkt) 30 ml GT BID@0800,1730 [facility] Last Admin: 03/05/20 17:48 Dose: 30 ml Documented by: Aspirin (Asa -) 325 mg GT DAILY [facility] Last Admin: 03/05/20 09:49 Dose: 325 mg Documented by: Atorvastatin Calcium (Lipitor -) 40 mg GT HS [facility] Last Admin: 03/05/20 21:35 Dose: 40 mg Documented by: Benztropine Mesylate (Cogentin -) 0.5 mg GT DAILY [facility] Last Admin: 03/05/20 09:49 Dose: 0.5 mg Documented by: Clopidogrel Bisulfate (Plavix -) 75 mg GT DAILY [facility] Famotidine (Pepcid) 20 mg NGT DAILY [facility] Last Admin: 03/05/20 09:49 Dose: 20 mg Documented by: Heparin Sodium (Porcine) (Heparin -) 5,000 unit SQ BID [facility] Last Admin: 03/05/20 21:35 Dose: 5,000 unit Documented by: Piperacillin Sod/Tazobactam (Sod 4.5 gm/ Dextrose) 100 mls @ 200 mls/hr IVPB Q8H-IV [facility]; Protocol Last Admin: 03/06/20 02:23 Dose: 200 mls/hr Documented by: Vancomycin HCl (Vancomycin (Pre-Docked)) 1,000 mg in 250 mls @ 166.667 mls/hr IVPB Q24H [facility]; Protocol Last Admin: 03/05/20 14:10 Dose: 166.667 mls/hr Documented by: Insulin Aspart (Novolog Vial Sliding Scale -) 1 vial SQ ACHS [facility]; Protocol Last Admin: 03/06/20 06:33 Dose: 2 units Documented by: Insulin Detemir (Levemir Vial) 36 units SQ AM [facility] Last Admin: 03/06/20 06:33 Dose: 36 units Documented by: Lisinopril (Prinivil) 30 mg GT DAILY [facility] Last Admin: 03/05/20 09:48 Dose: 30 mg Documented by: Metformin HCl (Glucophage -) 500 mg GT BID@0700,1630 [facility] Last Admin: 03/06/20 06:12 Dose: Not Given Documented by: Mirtazapine (Remeron -) 7.5 mg GT HS [facility] Last Admin: 03/05/20 21:35 Dose: 7.5 mg Documented by: Multivitamins/Minerals/Vitamin C (Tab-A-Vit -) 1 tab NR DAILY [facility] Last Admin: 03/05/20 09:48 Dose: 1 tab Documented by: Potassium Chloride (Potassium Chloride Oral Liquid) 20 meq GT ONCE ONE Stop: 03/06/20 09:48 Sertraline HCl (Zoloft -) 50 mg GT DAILY [facility] Last Admin: 03/05/20 09:48 Dose: 50 mg Documented by: Sitagliptin Phosphate (Januvia -) 100 mg NR 0700 [facility] Last Admin: 03/06/20 06:12 Dose: Not Given Documented by: - Objective Vital Signs: Vital Signs Temperature 101.1 F H 03/06/20 07:02 Pulse Rate 81 03/06/20 05:59 Respiratory Rate 26 H 03/06/20 06:00 Blood Pressure 159/72 03/06/20 05:59 O2 Sat by Pulse Oximetry (%) 97 03/06/20 06:00 Constitutional: Yes: Mild Distress Cardiovascular: Yes: Regular Rate and Rhythm Respiratory: Yes: WNL Gastrointestinal: Yes: Soft Genitourinary: Yes: Damon Present Musculoskeletal: Yes: Muscle Weakness Neurological: Yes: Aphasia Labs: CBC, BMP 03/06/20 02:43 03/06/20 02:43 INR, PTT INR 1.05 (0.83-1.09) 02/21/20 02:45 Problem List - Problems (1) Aspiration pneumonia Code(s): J69.0 - PNEUMONITIS DUE TO INHALATION OF FOOD AND VOMIT (2) Cerebrovascular accident (CVA) Code(s): I63.9 - CEREBRAL INFARCTION, UNSPECIFIED Qualifiers: CVA mechanism: unspecified Qualified Code(s): I63.9 - Cerebral infarction, unspecified (3) Diabetes Code(s): E11.9 - TYPE 2 DIABETES MELLITUS WITHOUT COMPLICATIONS Qualifiers: Diabetes mellitus type: type 2 (4) Dysphagia as late effect of cerebrovascular accident (CVA) Code(s): I69.391 - DYSPHAGIA FOLLOWING CEREBRAL INFARCTION (5) Electrolyte abnormality Code(s): E87.8 - OTH DISORDERS OF ELECTROLYTE AND FLUID BALANCE, NEC (6) Facial droop Code(s): R29.810 - FACIAL WEAKNESS (7) Hypertension Code(s): I10 - ESSENTIAL (PRIMARY) HYPERTENSION (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
[2020-03-06] MEDS: MULTIVITAMINS (DAILY MVI) TABLET (FP) NR SCH (09:55)
[2020-03-06] MEDS: ASPIRIN 325 MG TABLET GT SCH (09:55)
[2020-03-06] MEDS: FAMOTIDINE 40 MG/5 ML ORAL SUSPENSION NGT SCH (09:55)
[2020-03-06] MEDS: LISINOPRIL 10 MG TABLET (FP) GT SCH (09:55)
[2020-03-06] MEDS: SERTRALINE HCL 50 MG TABLET (FP) GT SCH (09:58)
[2020-03-06] MEDS: BENZTROPINE MESYLATE 0.5 MG TABLET (FP) GT SCH (09:58)
[2020-03-06] MEDS: VANCOMYCIN 1 GRAM (PRE-DOCKED) 1,000 MG/250 ML BAG IVPB SCH (10:20)
[2020-03-06] MEDS: HEPARIN NA (PORCINE) 5,000 UNITS/ML 1ML VIAL SQ SCH ×2 (10:41→21:29)
--- NOTE | 2020-03-06 12:03 | PN ---
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 (short form) - Note 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: continues to remove ngt developed SOB last night now with fever on NRB mask NAD Vital Signs Period Temp Pulse Resp BP Sys/Gregory Pulse Ox Last 24 Hr 98.2 F-101.3 F 68-81 20-33 157-194/72-102 79-119 cor-rrr llungs bilateral rhonchi abd soft,nt ext no edema CBC, BMP 03/06/20 02:43 03/06/20 02:43 Microbiology 03/01/20 20:30 Blood - Peripheral Venous Blood Culture - Preliminary NO GROWTH OBTAINED AFTER 96 HOURS, INCUBATION TO CONTINUE FOR 1 DAYS. 03/01/20 20:30 Blood - Peripheral Venous Blood Culture - Preliminary NO GROWTH OBTAINED AFTER 96 HOURS, INCUBATION TO CONTINUE FOR 1 DAYS. 02/21/20 04:16 Urine - Urine Clean Catch Urine Culture - Final Normal Urogenital Holli cxray-increaseing infiltrate left a/p suspected aspiration pneumonia- ngt pulled out repeatedly by patient aspiration precautions continue zosyn and vanco, f/u cultures f/u MBS on Saturday would agree with keeping NGT out at this point and NPO s/p CVA Problem List - Problems (1) Leukocytosis Code(s): D72.829 - ELEVATED WHITE BLOOD CELL COUNT, UNSPECIFIED (2) Aspiration pneumonia Code(s): J69.0 - PNEUMONITIS DUE TO INHALATION OF FOOD AND VOMIT (3) Cerebrovascular accident (CVA) Code(s): I63.9 - CEREBRAL INFARCTION, UNSPECIFIED Qualifiers: CVA mechanism: unspecified Qualified Code(s): I63.9 - Cerebral infarction, unspecified (4) Diabetes Code(s): E11.9 - TYPE 2 DIABETES MELLITUS WITHOUT COMPLICATIONS Qualifiers: Diabetes mellitus type: type 2
--- NOTE | 2020-03-06 13:23 | PN ---
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 Patient is arleady on plavix and statin. She also have history of htn, [facility]iness and facial droopiness. She describes dizziness as spinning sensation. Patent has ct head no acute findings. Ther eis left occipital infarct mri of brain showed left cerebellar peducnle stroke and right ica stenosis repeat ct scan stable no new complain waiting for gt placement neurological examination Alert oriented x 2, speech is normal, neck is supple vss eomi, pupil reactive , left facial droopiness ? lmn type there is mild right arm weakness sensation is normal reflex are normal bilaterally ct head old left occpital stroke mri of brain showed there is left cerebellar peduncle ischemic lesion cta of neck showed there is right ica [address] head unremarkable, as patient has fall on february 21 vascular surgery consult no need for any surgery Assessment/Plan -1. left cebellar acute stroke , also have history of left occpital stroke - swallowing difficulty secondary to stroke,peg tube placement on saturday Plan:- - pending loop recording - peg tube placement ( plavix on hold) on saturday( march 06), contnue ng tube feeding - abx as per ID would continue to follow Tigre guerrero so much Osman Orozco MD
[2020-03-06] MEDS ORDERED: METOPROLOL TARTRATE 5 MG/5 ML VIAL IVPUSH PRN (13:59)
[2020-03-06] MEDS ORDERED: KCL 10 MEQ IVPB 10 MEQ/100 ML INFUS.BAG IVPB SCH (14:15)
[2020-03-06] MEDS: DEXTROSE 5%-NORMAL SALINE 1,000 ML IV SCH (16:23)
[2020-03-07] MEDS ORDERED: DEXTROSE 5%-WATER 100 ML IVPB ONE ×4 (00:36→17:04)
[2020-03-07] MEDS ORDERED: PIPERACILLIN/TAZOBACTAM 4.5 GM VIAL IVPB ONE ×4 (00:36→17:04)
[2020-03-07] MEDS: PIPERACILLIN/TAZOB 4.5 GM 4.5 GM in DEXTROSE 5%-WATER 100 ML IVPB SCH ×3 (01:13→17:07)
[2020-03-07] MEDS: INSULIN SLIDING SCALE (NOVOLOG) 1 VIAL SQ SCH ×4 (06:15→22:11)
[2020-03-07] MEDS: INSULIN (LEVEMIR) 100 UNITS/ML UNITS SQ SCH (06:15)
[2020-03-07] MEDS: ASPIRIN 325 MG TABLET GT SCH (09:32)
--- NOTE | 2020-03-07 10:25 | PN ---
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, Physician Chief Complaint: CVA Uncontrolled diabetes mellitus Leukocytosis History of Present Illness: NAD, In bed Aler, oriented x 2 Tells me her name and knows shes in the hospital NGT dislodged again On IV abx for aspiration pneumonia Pt is awaiting PEG Last dose of plavix on 03/02/20 Hold Asa for GT insertion via IR - Current Medication List Current Medications: Active Medications Amino Acids (Prosource No Carb Liquid Pkt) 30 ml GT BID@0800,1730 [facility] Last Admin: 03/06/20 08:57 Dose: Not Given Documented by: Aspirin (Asa -) 325 mg GT DAILY [facility] Last Admin: 03/07/20 09:32 Dose: Not Given Documented by: Atorvastatin Calcium (Lipitor -) 40 mg GT HS [facility] Last Admin: 03/05/20 21:35 Dose: 40 mg Documented by: Benztropine Mesylate (Cogentin -) 0.5 mg GT DAILY [facility] Last Admin: 03/06/20 09:58 Dose: Not Given Documented by: Clopidogrel Bisulfate (Plavix -) 75 mg GT DAILY [facility] Famotidine (Pepcid) 20 mg NGT DAILY [facility] Last Admin: 03/06/20 09:55 Dose: Not Given Documented by: Heparin Sodium (Porcine) (Heparin -) 5,000 unit SQ BID [facility] Last Admin: 03/06/20 21:29 Dose: 5,000 unit Documented by: Piperacillin Sod/Tazobactam (Sod 4.5 gm/ Dextrose) 100 mls @ 200 mls/hr IVPB Q8H-IV [facility]; Protocol Last Admin: 03/07/20 09:35 Dose: 200 mls/hr Documented by: Vancomycin HCl (Vancomycin (Pre-Docked)) 1,000 mg in 250 mls @ 166.667 mls/hr IVPB Q24H [facility]; Protocol Last Admin: 03/06/20 10:20 Dose: 166.667 mls/hr Documented by: Dextrose/Sodium Chloride (D5-Ns -) 1,000 mls @ 75 mls/hr IV ASDIR [facility] Last Admin: 03/06/20 16:23 Dose: 75 mls/hr Documented by: Insulin Aspart (Novolog Vial Sliding Scale -) 1 vial SQ ACHS [facility]; Protocol Last Admin: 03/07/20 06:15 Dose: Not Given Documented by: Insulin Detemir (Levemir Vial) 36 units SQ AM [facility] Last Admin: 03/07/20 06:15 Dose: 36 units Documented by: Lisinopril (Prinivil) 30 mg GT DAILY [facility] Last Admin: 03/06/20 09:55 Dose: Not Given Documented by: Metformin HCl (Glucophage -) 500 mg GT BID@0700,1630 [facility] Last Admin: 03/06/20 06:12 Dose: Not Given Documented by: Metoprolol Tartrate (Lopressor Injection -) 5 mg IVPUSH Q4H PRN PRN Reason: HYPERTENSION Mirtazapine (Remeron -) 7.5 mg GT HS [facility] Last Admin: 03/05/20 21:35 Dose: 7.5 mg Documented by: Multivitamins/Minerals/Vitamin C (Tab-A-Vit -) 1 tab NR DAILY [facility] Last Admin: 03/06/20 09:55 Dose: Not Given Documented by: Sertraline HCl (Zoloft -) 50 mg GT DAILY [facility] Last Admin: 03/06/20 09:58 Dose: Not Given Documented by: Sitagliptin Phosphate (Januvia -) 100 mg NR 0700 [facility] Last Admin: 03/06/20 06:12 Dose: Not Given Documented by: - Objective Vital Signs: Vital Signs Temperature 99 F 03/07/20 06:00 Pulse Rate 64 03/07/20 06:00 Respiratory Rate 20 03/07/20 06:00 Blood Pressure 152/74 03/07/20 06:00 O2 Sat by Pulse Oximetry (%) 100 03/07/20 06:00 Constitutional: Yes: Well Nourished, No Distress, Calm Cardiovascular: Yes: Regular Rate and Rhythm Respiratory: Yes: Regular, CTA Bilaterally Gastrointestinal: Yes: Normal Bowel Sounds, Soft Genitourinary: Yes: Damon Present Musculoskeletal: Yes: Muscle Weakness Extremities: Yes: WNL Edema: No Peripheral Pulses WNL: Yes Neurological: Yes: Alert, Oriented (x2) Psychiatric: Yes: Alert Labs: CBC, BMP 03/06/20 02:43 03/06/20 02:43 INR, PTT INR 1.05 (0.83-1.09) 02/21/20 02:45 Problem List - Problems (1) Cerebrovascular accident (CVA) Assessment/Plan: -First CT Head on 02/21/20:Chronic left occipital cortical infarct as described above. A subtle punctate chronic left thalamic infarct is noted on the current study which cannot be definitely visualized on the prior exam. Punctate chronic right basal ganglia infarct as also seen on the previous exam. Mild periventr icular chronic microvascular ischemic changes. -Repeat CT head [id number]/[id number]-Inlzosufuiowprms/chronic infarct in the left occipital lobe is again seen. No gross CT evidence of acute intracranial pathology is identified. -Asa on hold for GT via IR -Plavix on hold for PEG early next week, last dose given on 03/02/20 -Statin -Seen by Neurology -MBS:There is risk of aspiration, dehydration, malnutrition due to impaired laryngeal excursion, buildup in the piriform sinuses, recurrent aspiration. Sw allowing is somewhat functional but with clear risks at this time. I believe the more she swallows, the better his swallow will function. I suspect swallowing will improve and hope that patient will not develop a pneumonia and will achieve sufficient nutrition before this happens. Patient needs very close monitoring. -MRI brain 02/21:1.2 cm acute nonhemorrhagic infarction left cerebellar peduncle. Ischemic changes in the abdirahman and in the white matter of both cerebral hemispheres sequela most probably to long-standing hypertension or small vessel atherosclerosis. Old completed infarction left occipital lobe with residual encephalomalacia. Basilar artery and cavernous portions internal carotid arteries unremarkable. -CTA neck 02/20:Tiny plaque at the left common carotid bifurcation/bulb without evidence of hemodynamically significant stenosis Moderate size calcified plaque with hemodynamically significant stenosis at the right common carotid bifurcation with approximately 70% narrowing of its lumen Hypoplastic distal left vertebral artery that could be traced up to the level of C1 as it enters the spinal canal. Normal enhancement of the right vertebral artery without gross evidence of stenosis. Intracranially, there is persistent origin of the left posterior cerebral artery with s ignificantly attenuated/absence of enhancement of the P2 branches consistent with the known left occ ipital lobe chronic infarct Otherwise, no gross major artery cutoff, focal hemodynamically significant stenosis, aneurysm or vascular malformation is identified within the central intracranial arterial circulation. Problems reviewed: Yes Code(s): I63.9 - CEREBRAL INFARCTION, UNSPECIFIED Qualifiers: CVA mechanism: unspecified Qualified Code(s): I63.9 - Cerebral infarction, unspecified (2) Diabetes Assessment/Plan: -A1c at 9.3 -BGM AC HS -ISS -Levemir -Endocrinology consult appreciated -Continue TF- Bolus TF 240 ml QID with 50 ml h20 before and after bolus + 100 ml h2o BID Problems reviewed: Yes Code(s): E11.9 - TYPE 2 DIABETES MELLITUS WITHOUT COMPLICATIONS Qualifiers: Diabetes mellitus type: type 2 (3) Dysphagia as late effect of cerebrovascular accident (CVA) Assessment/Plan: -Seen by speech pathology -TF via NGT -Avoid meds via NGT except contrast and liquid meds -CXR some increased central markings -HOB >40 degrees -GT on 03/10/20 -GI on board Problems reviewed: Yes Code(s): I69.391 - DYSPHAGIA FOLLOWING CEREBRAL INFARCTION (4) Carotid stenosis Assessment/Plan: -Seen by Vascular surgery -No surgical intervention recommended at this time Problems reviewed: Yes Code(s): I65.29 - OCCLUSION AND STENOSIS OF UNSPECIFIED CAROTID ARTERY (5) Hypertension Assessment/Plan: -Seen by cardiology -Hold lisinopril to 30 mg GT daily -Lopressor 5 mg Q4H PRN for SBP>160 mm Hg or HR>120 bpm Problems reviewed: Yes Code(s): I10 - ESSENTIAL (PRIMARY) HYPERTENSION Assessment/Plan See problem list
[2020-03-07] MEDS ORDERED: KETAMINE HCL 500 MG/10 ML VIAL ONE (10:27)
[2020-03-07] MEDS ORDERED: CEFAZOLIN 1 GM/D5W 1 GM/50 ML BAG ONE (10:35)
[2020-03-07] MEDS ORDERED: TETRACAINE/BENZOCAINE/BUTAMBEN 20 GM SPR TP ONE (10:48)
[2020-03-07] MEDS ORDERED: NALOXONE HCL 0.4 MG/ML VIAL ONE (10:49)
--- NOTE | 2020-03-07 11:24 | PN ---
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 (short form) - Note 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: EGD complete. Patient with three episodes of desaturation to the 50's necessitating [place], Jaw thrust and increased supplemental O2. Placement of bite blocke seemed to precipitate these episodes. Due to this, G-Tube could not be placed endoscopically. enteral feeding tube placed through right nare without difficulty and tethered at the 50cm mo. CXR ordered to confirm position. Spoke with Dr. escoto. Will attempt radiographically placed G-Tube tomorrow. Discussed events and plan with patient's son Gt and Katie Fernández NP
[2020-03-07] MEDS: VANCOMYCIN 1 GRAM (PRE-DOCKED) 1,000 MG/250 ML BAG IVPB SCH (12:35)
--- NOTE | 2020-03-07 13:25 | PN ---
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 (short form) - Note 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: unable to do PEG today, she became hypoxic Vital Signs Period Temp Pulse Resp BP Sys/Gregory Pulse Ox Last 24 Hr 98.2 F-99.2 F 64-89 19-22 109-179/54-93 95-100 cor-rrr lungs bilateral rhonchi abd soft,nt ext no edema 03/06/20 02:43 03/06/20 02:43 Microbiology 03/05/20 11:30 Sputum - Expectorated Gram Stain - Final 03/05/20 11:30 Sputum - Expectorated Sputum Culture - Preliminary Yeast Like Organism 03/06/20 01:40 Blood - Peripheral Venous Blood Culture - Preliminary NO GROWTH OBTAINED AFTER 24 HOURS, INCUBATION TO CONTINUE FOR 4 DAYS. 03/06/20 01:40 Blood - Peripheral Venous Blood Culture - Preliminary NO GROWTH OBTAINED AFTER 24 HOURS, INCUBATION TO CONTINUE FOR 4 DAYS. 03/01/20 20:30 Blood - Peripheral Venous Blood Culture - Final NO GROWTH AFTER 5 DAYS INCUBATION 03/01/20 20:30 Blood - Peripheral Venous Blood Culture - Final NO GROWTH AFTER 5 DAYS INCUBATION 03/05/20 11:30 Nares - Right Nares MRSA Screen - Final NO MRSA ISOLATED 03/05/20 11:30 Nares - Left Nares MRSA Screen - Final NO MRSA ISOLATED 02/21/20 04:16 Urine - Urine Clean Catch Urine Culture - Final Normal Urogenital Holli bibasilar infiltrates- cxray a/p suspected aspiration pneumonia- ngt pulled out repeatedly by patient aspiration precautions continue zosyn can d/c vancomycin no MRSA s/p CVA Problem List - Problems (1) Leukocytosis Code(s): D72.829 - ELEVATED WHITE BLOOD CELL COUNT, UNSPECIFIED (2) Aspiration pneumonia Code(s): J69.0 - PNEUMONITIS DUE TO INHALATION OF FOOD AND VOMIT (3) Cerebrovascular accident (CVA) Code(s): I63.9 - CEREBRAL INFARCTION, UNSPECIFIED Qualifiers: CVA mechanism: unspecified Qualified Code(s): I63.9 - Cerebral infarction, unspecified (4) Diabetes Code(s): E11.9 - TYPE 2 DIABETES MELLITUS WITHOUT COMPLICATIONS Qualifiers: Diabetes mellitus type: type 2
[2020-03-07] MEDS: DEXTROSE 5%-NORMAL SALINE 1,000 ML IV SCH (14:54)
[2020-03-07 16:08] LABS: BASO % 0.5 % (0-2.0); EOS % 0.9 % (0-4.5); HEMATOCRIT 31.9 % (32.4-45.2); HEMOGLOBIN 10.7 GM/dL (10.7-15.3); LYMPH % 19.6 % (8-40); MCH 28.5 pg (25.7-33.7); MCHC 33.5 g/dl (32.0-36.0); MEAN CELL VOLUME 84.9 fl (80-96); MEAN PLT VOLUME 8.5 fl (7.5-11.1); MONO % 6.5 % (3.8-10.2); NEUT % 72.5 % (42.8-82.8); PLATELET COUNT 258 K/MM3 (134-434); RBC 3.75 M/mm3 (3.60-5.2); RDW 14.6 % (11.6-15.6); WHITE BLOOD COUNT 13.2 K/mm3 (4.0-10.0)
[2020-03-07 16:30] LABS: ALBUMIN 2.6 g/dl (3.4-5.0); BILIRUBIN,TOTAL 0.4 mg/dL (0.2-1); BLOOD UREA NITROGEN 14.2 mg/dL (7-18); CALCIUM 8.6 mg/dL (8.5-10.1); CREATININE 0.3 mg/dL (0.55-1.3); POTASSIUM 3.4 mmol/L (3.5-5.1); TOT PROT 5.9 g/dl (6.4-8.2)
[2020-03-07] MEDS: AMINO ACIDS/PROTEIN HYDROLYS 30 ML LIQUID.PKT GT SCH (17:08)
[2020-03-07] MEDS: metFORMIN HCL 500 MG TABLET (FP) GT SCH (17:08)
--- NOTE | 2020-03-07 17:31 | PN ---
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 Patient is arleady on plavix and statin. She also have history of htn, [facility] for [facility]iness and facial droopiness. She describes dizziness as spinning sensation. Patent has ct head no acute findings. Ther eis left occipital infarct mri of brain showed left cerebellar peducnle stroke and right ica stenosis repeat ct scan stable GT tube can not be placed due to copmlications, planned by interventional radiology neurological examination Alert oriented x 2, speech is normal, neck is supple vss eomi, pupil reactive , left facial droopiness ? lmn type there is mild right arm weakness sensation is normal reflex are normal bilaterally ct head old left occpital stroke mri of brain showed there is left cerebellar peduncle ischemic lesion cta of neck showed there is right ica [address] head unremarkable, as patient has fall on february 21 vascular surgery consult no need for any surgery Assessment/Plan -1. left cebellar acute stroke , also have history of left occpital stroke - swallowing difficulty secondary to stroke,peg tube placement on saturday Plan:- - pending loop recording - peg tube placement ( plavix and apsirn on hold) on saturday( march 11 ), contnue ng tube feeding - abx as per ID would continue to follow Tigre guerrero so much Osman Orozco MD
[2020-03-07] MEDS ORDERED: POTASSIUM CHLORIDE ORAL LIQUID 20 MEQ/15 ML PO ONE (20:46)
[2020-03-07] MEDS ORDERED: ALBUTEROL SO4 2.5/IPRATROPIUM 0.5 INH SOL 3 ML VIAL.NEB. NEB ONE (20:47)
[2020-03-07] MEDS: MIRTAZAPINE 15 MG TABLET (FP) GT SCH (22:05)
[2020-03-07] MEDS: ATORVASTATIN CA 40 MG TABLET (FP) GT SCH (22:05)
[2020-03-07] MEDS: HEPARIN NA (PORCINE) 5,000 UNITS/ML 1ML VIAL SQ SCH (22:06)
[2020-03-08] MEDS ORDERED: PIPERACILLIN/TAZOBACTAM 4.5 GM VIAL IVPB ONE ×3 (01:55→17:45)
[2020-03-08] MEDS ORDERED: DEXTROSE 5%-WATER 100 ML IVPB ONE ×3 (01:55→17:45)
[2020-03-08] MEDS: PIPERACILLIN/TAZOB 4.5 GM 4.5 GM in DEXTROSE 5%-WATER 100 ML IVPB SCH ×3 (02:12→17:48)
[2020-03-08] MEDS: INSULIN SLIDING SCALE (NOVOLOG) 1 VIAL SQ SCH ×4 (07:14→21:39)
[2020-03-08] MEDS: sitaGLIPtin PHOSPHATE 50 MG TABLET NR SCH (07:14)
[2020-03-08] MEDS: INSULIN (LEVEMIR) 100 UNITS/ML UNITS SQ SCH (07:14)
[2020-03-08] MEDS: metFORMIN HCL 500 MG TABLET (FP) GT SCH (07:14)
[2020-03-08] MEDS: AMINO ACIDS/PROTEIN HYDROLYS 30 ML LIQUID.PKT GT SCH ×2 (08:18→17:48)
[2020-03-08 08:23] LABS: BASO % 0.6 % (0-2.0); EOS % 2.2 % (0-4.5); HEMATOCRIT 32.6 % (32.4-45.2); HEMOGLOBIN 10.8 GM/dL (10.7-15.3); MCH 27.8 pg (25.7-33.7); MCHC 33.2 g/dl (32.0-36.0); MEAN CELL VOLUME 83.8 fl (80-96); MEAN PLT VOLUME 8.2 fl (7.5-11.1); MONO % 7.5 % (3.8-10.2); NEUT % 70.7 % (42.8-82.8); PLATELET COUNT 278 K/MM3 (134-434); RBC 3.89 M/mm3 (3.60-5.2); RDW 14.6 % (11.6-15.6); WHITE BLOOD COUNT 11.5 K/mm3 (4.0-10.0)
[2020-03-08 08:46] LABS: ALBUMIN 2.8 g/dl (3.4-5.0); BILIRUBIN,TOTAL 0.6 mg/dL (0.2-1); BLOOD UREA NITROGEN 16.6 mg/dL (7-18); CREATININE 0.4 mg/dL (0.55-1.3); POTASSIUM 3.5 mmol/L (3.5-5.1); TOT PROT 6.2 g/dl (6.4-8.2)
[2020-03-08] MEDS: ALBUTEROL SO4 2.5/IPRATROPIUM 0.5 INH SOL 3 ML VIAL.NEB. NEB SCH ×4 (08:48→20:13)
[2020-03-08] MEDS: BENZTROPINE MESYLATE 0.5 MG TABLET (FP) GT SCH (09:28)
[2020-03-08] MEDS: FAMOTIDINE 40 MG/5 ML ORAL SUSPENSION NGT SCH (09:28)
[2020-03-08] MEDS: MULTIVITAMINS (DAILY MVI) TABLET (FP) NR SCH (09:28)
[2020-03-08] MEDS: LISINOPRIL 10 MG TABLET (FP) GT SCH (09:28)
[2020-03-08] MEDS: SERTRALINE HCL 50 MG TABLET (FP) GT SCH (09:28)
[2020-03-08] MEDS: HEPARIN NA (PORCINE) 5,000 UNITS/ML 1ML VIAL SQ SCH ×2 (10:00→21:39)
--- NOTE | 2020-03-08 10:12 | PN ---
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, Physician Chief Complaint: CVA Uncontrolled diabetes mellitus Leukocytosis History of Present Illness: NAD, Tells me her name and knows shes in the hospital NGT dislodged On IV abx for aspiration pneumonia Pt is awaiting GT Last dose of plavix on 03/02/20 Hold Asa for GT insertion on 03/10/20 - Current Medication List Current Medications: Active Medications Albuterol/Ipratropium (Duoneb -) 1 amp NEB RQID [facility] Amino Acids (Prosource No Carb Liquid Pkt) 30 ml GT BID@0800,1730 [facility] Last Admin: 03/08/20 08:18 Dose: Not Given Documented by: Aspirin (Asa -) 325 mg GT DAILY [facility] Last Admin: 03/07/20 09:32 Dose: Not Given Documented by: Atorvastatin Calcium (Lipitor -) 40 mg GT HS [facility] Last Admin: 03/07/20 22:05 Dose: 40 mg Documented by: Benztropine Mesylate (Cogentin -) 0.5 mg GT DAILY [facility] Last Admin: 03/08/20 09:28 Dose: Not Given Documented by: Clopidogrel Bisulfate (Plavix -) 75 mg GT DAILY [facility] Famotidine (Pepcid) 20 mg NGT DAILY [facility] Last Admin: 03/08/20 09:28 Dose: Not Given Documented by: Heparin Sodium (Porcine) (Heparin -) 5,000 unit SQ BID [facility] Last Admin: 03/08/20 10:00 Dose: 5,000 unit Documented by: Piperacillin Sod/Tazobactam (Sod 4.5 gm/ Dextrose) 100 mls @ 200 mls/hr IVPB Q8H-IV [facility]; Protocol Last Admin: 03/08/20 10:01 Dose: 200 mls/hr Documented by: Insulin Aspart (Novolog Vial Sliding Scale -) 1 vial SQ ACHS [facility]; Protocol Last Admin: 03/08/20 07:14 Dose: Not Given Documented by: Insulin Detemir (Levemir Vial) 36 units SQ AM [facility] Last Admin: 03/08/20 07:14 Dose: 36 units Documented by: Lisinopril (Prinivil) 30 mg GT DAILY [facility] Last Admin: 03/08/20 09:28 Dose: Not Given Documented by: Metformin HCl (Glucophage -) 500 mg GT BID@0700,1630 [facility] Last Admin: 03/08/20 07:14 Dose: Not Given Documented by: Metoprolol Tartrate (Lopressor Injection -) 5 mg IVPUSH Q4H PRN PRN Reason: HYPERTENSION Mirtazapine (Remeron -) 7.5 mg GT HS [facility] Last Admin: 03/07/20 22:05 Dose: 7.5 mg Documented by: Multivitamins/Minerals/Vitamin C (Tab-A-Vit -) 1 tab NR DAILY [facility] Last Admin: 03/08/20 09:28 Dose: Not Given Documented by: Sertraline HCl (Zoloft -) 50 mg GT DAILY [facility] Last Admin: 03/08/20 09:28 Dose: Not Given Documented by: Sitagliptin Phosphate (Januvia -) 100 mg NR 0700 [facility] Last Admin: 03/08/20 07:14 Dose: Not Given Documented by: - Objective Vital Signs: Vital Signs Temperature 98.5 F 03/08/20 08:02 Pulse Rate 64 03/08/20 08:02 Respiratory Rate 20 03/08/20 08:02 Blood Pressure 160/75 03/08/20 08:02 O2 Sat by Pulse Oximetry (%) 100 03/08/20 08:02 Constitutional: Yes: Well Nourished, No Distress, Calm Cardiovascular: Yes: Regular Rate and Rhythm Respiratory: Yes: Regular, Rales (BLL), Other (NRB) Gastrointestinal: Yes: Normal Bowel Sounds, Soft Genitourinary: Yes: Bernardo Present Musculoskeletal: Yes: Muscle Weakness Extremities: Yes: WNL Edema: No Peripheral Pulses WNL: Yes Neurological: Yes: Alert, Oriented (x2) Psychiatric: Yes: Alert, Oriented (x2) Labs: CBC, BMP 03/08/20 07:45 03/08/20 07:45 INR, PTT INR 1.05 (0.83-1.09) 02/21/20 02:45 Problem List - Problems (1) Cerebrovascular accident (CVA) Assessment/Plan: -First CT Head on 02/21/20:Chronic left occipital cortical infarct as described above. A subtle punctate chronic left thalamic infarct is noted on the current study which cannot be definitely visualized on the prior exam. Punctate chronic right basal ganglia infarct as also seen on the previous exam. Mild periventricular chronic microvascular ischemic changes. -Repeat CT head [id number]/chronic infarct in the left occipital lobe is again seen. No gross CT evidence of acute intracranial pathology is identified. -Asa on hold for GT via IR -Plavix on hold for PEG early next week, last dose given on 03/02/20 -Statin -Seen by Neurology -MBS:There is risk of aspiration, dehydration, malnutrition due to impaired laryngeal excursion, buildup in the piriform sinuses, recurrent aspiration. Swallowing is somewhat functional but with clear risks at this time. I believe the more she swallows, the better his swallow will function. I suspect james vila will improve and hope that patient will not develop a pneumonia and will achieve sufficient nutrition before this happens. Patient needs very close monitoring. -MRI brain 02/21:1.2 cm acute nonhemorrhagic infarction left cerebellar peduncle. Ischemic changes in the abdirahman and in the white matter of both cerebral hemispheres sequela most probably to long-standing hypertension or small vessel atherosclerosis. Old completed infarction left occipital lobe with residual encephalomalacia. Basilar artery and cavernous portions internal carotid emiliano hortencia unremarkable. -CTA neck 02/20:Tiny plaque at the left common carotid bifurcation/bulb without evidence of hemodynamically significant stenosis Moderate size calcified plaque with hemodynamically significant stenosis at the right common carotid bifur cation with approximately 70% narrowing of its lumen Hypoplastic distal left vertebral artery that could be traced up to the level of C1 as it enters the spinal canal. Normal enhancement of the right vertebral artery without gross evidence of stenosis. Intracranially, there is persistent origin of the left posterior cerebral artery with s ignificantly attenuated/absence of enhancement of the P2 branches consistent with the known left occ ipital lobe chronic infarct Otherwise, no gross major artery cutoff, focal hemodynamically significant stenosis, aneurysm or vascular malformation is identified within the central intracranial arterial circulation. Problems reviewed: Yes Code(s): I63.9 - CEREBRAL INFARCTION, UNSPECIFIED Qualifiers: CVA mechanism: unspecified Qualified Code(s): I63.9 - Cerebral infarction, unspecified (2) Diabetes Assessment/Plan: -A1c at 9.3 -BGM AC HS -ISS -Levemir -Endocrinology consult appreciated -Continue TF- Glucerna Bolus TF 240 ml QID with 50 ml h20 before and after bolus + 100 ml h2o BID Problems reviewed: Yes Code(s): E11.9 - TYPE 2 DIABETES MELLITUS WITHOUT COMPLICATIONS Qualifiers: Diabetes mellitus type: type 2 (3) Dysphagia as late effect of cerebrovascular accident (CVA) Assessment/Plan: -Seen by speech pathology -TF via NGT -Avoid meds via NGT except contrast and liquid meds -CXR some increased central markings -HOB >40 degrees -GT on 03/10/20 -GI on board Problems reviewed: Yes Code(s): I69.391 - DYSPHAGIA FOLLOWING CEREBRAL INFARCTION (4) Carotid stenosis Assessment/Plan: -Seen by Vascular surgery -No surgical intervention recommended at this time Problems reviewed: Yes Code(s): I65.29 - OCCLUSION AND STENOSIS OF UNSPECIFIED CAROTID ARTERY (5) Hypertension Assessment/Plan: -Seen by cardiology -Hold lisinopril to 30 mg GT daily -Lopressor 5 mg Q4H PRN for SBP>160 mm Hg or HR>120 bpm Problems reviewed: Yes Code(s): I10 - ESSENTIAL (PRIMARY) HYPERTENSION (6) Urinary retention Assessment/Plan: -Maintain bernardo cath Problems reviewed: Yes Code(s): R33.9 - RETENTION OF URINE, UNSPECIFIED Assessment/Plan See problem list
--- NOTE | 2020-03-08 12:56 | PN ---
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, [employer] - Note 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: Selected Entries 03/07/20 03/07/20 03/07/20 02:05 06:00 11:09 Supper Temperature 98.2 F 99 F 98.7 F Pulse Rate 65 64 89 Blood Pressure 154/72 152/74 159/79 O2 Sat by Pulse Oximetry (%) Oxygen Delivery Method 03/07/20 03/07/20 03/07/20 11:24 11:45 12:00 Supper Temperature 98.7 F Pulse Rate 80 79 80 Blood Pressure 157/93 146/71 146/70 O2 Sat by Pulse Oximetry (%) Oxygen Delivery Method 03/07/20 03/07/20 03/07/20 18:00 20:00 22:16 Supper NPO Temperature 98.8 F 97.5 F L Pulse Rate 58 L 63 Blood Pressure 129/68 188/82 H O2 Sat by Pulse Oximetry (%) Oxygen Delivery Method 03/08/20 03/08/20 03/08/20 04:00 05:38 08:02 Supper Temperature Pulse Rate 60 64 Blood Pressure 143/72 160/75 O2 Sat by Pulse 98 100 100 Oximetry (%) Oxygen Delivery Nasal Cannula Method Laboratory Tests 03/06/20 03/07/20 03/08/20 02:43 15:00 07:45 WBC 17.2 H 13.2 H 11.5 H Pt became hypoxic during PEG insertion. Seen bedside on NR, arousable but sleepy. NGT reinserted Pt is a full code, per family's wishes. Awaiting GT insertion
[2020-03-08] MEDS ORDERED: METOPROLOL TARTRATE 5 MG/5 ML VIAL IVPB PRN (13:07)
[2020-03-08] MEDS ORDERED: FAMOTIDINE 20 MG/50 ML IVPB 20 MG/50 ML MG IVPB SCH (13:15)
--- NOTE | 2020-03-08 16:29 | PATH ---
Surgical Pathology Report Patient Name: NICHOLAS WOODY Med. Rec. #: [id number] /Age/Gender: 1960 (Age: 59) / F Account: [id number] Location: [facility] MED/SURG Taken: 03/07/2020 Received: 03/07/2020 Reported: 03/08/2020 Physicians: Chris Funes D.O. Specimen(s) Received BODY OF STOMACH Clinical History Dysphagia, CVA Postoperative diagnosis: Gastritis, clotted PEG Final Diagnosis STOMACH, BODY, BIOPSY: GASTRIC BODY MUCOSA WITH MILD CHRONIC FOCAL ACTIVE GASTRITIS. IMMUNOHISTOCHEMICAL STAIN FOR H. PYLORI IS NEGATIVE. Positive and negative controls (internal if applicable) show appropriate results. Electronically Signed Gris Bedolla M.D. Gross Description Received in formalin, labeled "biopsy body of stomach" are 3 peter, irregular portions of soft tissue ranging from 0.3-0.4 cm. in greatest dimension. The specimens are submitted in toto in one cassette. 03/07/2020 [facility]
--- NOTE | 2020-03-08 16:44 | PN ---
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 (short form) - Note 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: more alert still with ngt on NRB mask asking for water Vital Signs Period Temp Pulse Resp BP Sys/Gregory Pulse Ox Last 24 Hr 97.5 F-98.8 F 58-64 20-24 129-188/68-82 93-100 cor-rrr llungs bilateral rhonchi abd soft,nt ext no edema CBC, BMP 03/08/20 07:45 03/08/20 07:45 Microbiology 03/05/20 11:30 Sputum - Expectorated Gram Stain - Final 03/05/20 11:30 Sputum - Expectorated Sputum Culture - Final Yeast Like Organism 03/06/20 01:40 Blood - Peripheral Venous Blood Culture - Preliminary NO GROWTH OBTAINED AFTER 48 HOURS, INCUBATION TO CONTINUE FOR 3 DAYS. 03/06/20 01:40 Blood - Peripheral Venous Blood Culture - Preliminary NO GROWTH OBTAINED AFTER 48 HOURS, INCUBATION TO CONTINUE FOR 3 DAYS. 03/01/20 20:30 Blood - Peripheral Venous Blood Culture - Final NO GROWTH AFTER 5 DAYS INCUBATION 03/01/20 20:30 Blood - Peripheral Venous Blood Culture - Final NO GROWTH AFTER 5 DAYS INCUBATION 03/05/20 11:30 Nares - Right Nares MRSA Screen - Final NO MRSA ISOLATED 03/05/20 11:30 Nares - Left Nares MRSA Screen - Final NO MRSA ISOLATED 02/21/20 04:16 Urine - Urine Clean Catch Urine Culture - Final Normal Urogenital Holli cxray improved a/p suspected aspiration pneumonia- ngt pulled out repeatedly by patient aspiration precautions continue zosyn s/p CVA Problem List - Problems (1) Leukocytosis Code(s): D72.829 - ELEVATED WHITE BLOOD CELL COUNT, UNSPECIFIED (2) Aspiration pneumonia Code(s): J69.0 - PNEUMONITIS DUE TO INHALATION OF FOOD AND VOMIT (3) Cerebrovascular accident (CVA) Code(s): I63.9 - CEREBRAL INFARCTION, UNSPECIFIED Qualifiers: CVA mechanism: unspecified Qualified Code(s): I63.9 - Cerebral infarction, unspecified (4) Diabetes Code(s): E11.9 - TYPE 2 DIABETES MELLITUS WITHOUT COMPLICATIONS Qualifiers: Diabetes mellitus type: type 2
--- NOTE | 2020-03-08 16:47 | PN ---
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 Patient is arleady on plavix and statin. She also have history of htn, [facility] and [facility] droop[facility]. She describes dizziness as spinning sensation. Patent has ct head no acute findings. Ther eis left occipital infarct mri of brain showed left cerebellar peducnle stroke and right ica stenosis repeat ct scan stable GT tube can not be placed due to copmlications, planned by interventional radiology on saturday. During night she got hypoxic and now she is on nonbreather. neurological examination Alert oriented x 2, speech is normal, neck is supple vss eomi, pupil reactive , left facial droopiness ? lmn type there is mild right arm weakness sensation is normal reflex are normal bilaterally ct head old left occpital stroke mri of brain showed there is left cerebellar peduncle ischemic lesion cta of neck showed there is right ica [address] head unremarkable, as patient has fall on february 21 vascular surgery consult no need for any surgery Assessment/Plan -1. left cebellar acute stroke , also have history of left occpital stroke - swallowing difficulty secondary to stroke,peg tube placement on saturday Plan:- - pending loop recording - peg tube placement ( plavix and apsirn on hold) on saturday( march 11 ), contnue ng tube feeding - abx as per ID - on non-rebreather would continue to follow Tigre guerrero so much Osman Orozco MD
[2020-03-08] MEDS ORDERED: ACETAMINOPHEN 650 MG/20.3 ML ORAL SOLUTION (CUPS) PO PRN (21:27)
[2020-03-09] MEDS ORDERED: DEXTROSE 5%-WATER 100 ML IVPB ONE ×3 (03:20→18:16)
[2020-03-09] MEDS ORDERED: PIPERACILLIN/TAZOBACTAM 4.5 GM VIAL IVPB ONE ×3 (03:20→18:16)
[2020-03-09] MEDS: PIPERACILLIN/TAZOB 4.5 GM 4.5 GM in DEXTROSE 5%-WATER 100 ML IVPB SCH ×3 (03:25→18:46)
[2020-03-09] MEDS: INSULIN SLIDING SCALE (NOVOLOG) 1 VIAL SQ SCH ×4 (06:18→21:50)
[2020-03-09] MEDS: INSULIN (LEVEMIR) 100 UNITS/ML UNITS SQ SCH (06:30)
[2020-03-09] MEDS ORDERED: ACETAMINOPHEN 650 MG/20.3 ML ORAL SOLUTION (CUPS) GT PRN ×2 (07:55→07:56)
[2020-03-09] MEDS ORDERED: AMINO ACIDS/PROTEIN HYDROLYS 30 ML LIQUID.PKT GT SCH (08:00)
--- NOTE | 2020-03-09 08:01 | PN ---
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, Physician Chief Complaint: EVENTS AND NOTES REVIEWED PATIENT DISRUPTING HER CARE PULLING OUT NGT AND IV, SCHEDULED FOR PEG SATURDAY. - Current Medication List Current Medications: Active Medications Acetaminophen (Tylenol Oral Solution -) 650 mg GT Q4H PRN PRN Reason: FEVER Albuterol/Ipratropium (Duoneb -) 1 amp NEB RQID [facility] Last Admin: 03/08/20 20:13 Dose: 1 amp Documented by: Heparin Sodium (Porcine) (Heparin -) 5,000 unit SQ BID [facility] Last Admin: 03/08/20 21:39 Dose: 5,000 unit Documented by: Piperacillin Sod/Tazobactam (Sod 4.5 gm/ Dextrose) 100 mls @ 200 mls/hr IVPB Q8 H-IV [facility]; Protocol Last Admin: 03/09/20 03:25 Dose: 200 mls/hr Documented by: Insulin Aspart (Novolog Vial Sliding Scale -) 1 vial SQ ACHS [facility]; Protocol Last Admin: 03/09/20 06:18 Dose: Not Given Documented by: Insulin Detemir (Levemir Vial) 36 units SQ AM [facility] Last Admin: 03/09/20 06:30 Dose: 36 units Documented by: Metoprolol Tartrate (Lopressor Injection -) 5 mg IVPUSH Q4H PRN PRN Reason: HYPERTENSION - Objective Vital Signs: Vital Signs Temperature 98.4 F 03/09/20 06:36 Pulse Rate 62 03/09/20 06:36 Respiratory Rate 20 03/09/20 06:36 Blood Pressure 166/70 03/09/20 06:36 O2 Sat by Pulse Oximetry (%) 100 03/09/20 06:36 Constitutional: Yes: Mild Distress Cardiovascular: Yes: Regular Rate and Rhythm Respiratory: Yes: Diminished, On Nasal O2 Gastrointestinal: Yes: Soft Genitourinary: Yes: Incontinence Musculoskeletal: Yes: Muscle Weakness Wound/Incision: Yes: Other Psychiatric: Yes: Other Labs: CBC, BMP 03/08/20 07:45 03/08/20 07:45 INR, PTT INR 1.05 (0.83-1.09) 02/21/20 02:45 Problem List - Problems (1) Aspiration pneumonia Code(s): J69.0 - PNEUMONITIS DUE TO INHALATION OF FOOD AND VOMIT (2) Cerebrovascular accident (CVA) Code(s): I63.9 - CEREBRAL INFARCTION, UNSPECIFIED Qualifiers: CVA mechanism: unspecified Qualified Code(s): I63.9 - Cerebral infarction, unspecified (3) Diabetes Code(s): E11.9 - TYPE 2 DIABETES MELLITUS WITHOUT COMPLICATIONS Qualifiers: Diabetes mellitus type: type 2 (4) Dysphagia as late effect of cerebrovascular accident (CVA) Code(s): I69.391 - DYSPHAGIA FOLLOWING CEREBRAL INFARCTION (5) Electrolyte abnormality Code(s): E87.8 - OTH DISORDERS OF ELECTROLYTE AND FLUID BALANCE, NEC (6) Facial droop Code(s): R29.810 - FACIAL WEAKNESS (7) Hypertension Code(s): I10 - ESSENTIAL (PRIMARY) HYPERTENSION (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
[2020-03-09] MEDS: ALBUTEROL SO4 2.5/IPRATROPIUM 0.5 INH SOL 3 ML VIAL.NEB. NEB SCH ×4 (08:30→20:03)
[2020-03-09 08:44] LABS: BASO % 0.8 % (0-2.0); EOS % 2.5 % (0-4.5); HEMATOCRIT 31.5 % (32.4-45.2); HEMOGLOBIN 10.5 GM/dL (10.7-15.3); LYMPH % 26.1 % (8-40); MCHC 33.3 g/dl (32.0-36.0); MEAN CELL VOLUME 84.1 fl (80-96); MEAN PLT VOLUME 7.8 fl (7.5-11.1); MONO % 7.6 % (3.8-10.2); PLATELET COUNT 303 K/MM3 (134-434); RBC 3.75 M/mm3 (3.60-5.2); RDW 14.1 % (11.6-15.6); WHITE BLOOD COUNT 10.6 K/mm3 (4.0-10.0)
--- NOTE | 2020-03-09 09:03 | PN ---
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 Patient is arleady on plavix and statin. She also have history of htn, [facility] and [facility] droopiness. She describes dizziness as spinning sensation. Patent has ct head no acute findings. Ther eis left occipital infarct mri of brain showed left cerebellar peducnle stroke and right ica stenosis repeat ct scan stable GT tube can not be placed due to copmlications, planned by interventional radiology on saturday. no new complain, patient seems to be more alert event noted, chart reviewed neurological examination Alert oriented x 2, speech is normal, neck is supple vss eomi, pupil reactive , left facial droopiness ? lmn type there is mild right arm weakness sensation is normal reflex are normal bilaterally ct head old left occpital stroke mri of brain showed there is left cerebellar peduncle ischemic lesion cta of neck showed there is right ica [address] head unremarkable, as patient has fall on february 21 vascular surgery consult no need for any surgery Assessment/Plan -1. left cebellar acute stroke , also have history of left occpital stroke - swallowing difficulty secondary to stroke,peg tube placement on saturday Plan:- - pending loop recording - peg tube placement ( plavix and apsirn on hold) on saturday( march 11 ), contnue ng tube feeding - abx as per ID - on non-rebreather would continue to follow Tigre guerrero so much Osman Orozco MD
[2020-03-09 09:14] LABS: ALBUMIN 2.7 g/dl (3.4-5.0); BILIRUBIN,TOTAL 0.4 mg/dL (0.2-1); BLOOD UREA NITROGEN 18.7 mg/dL (7-18); CALCIUM 8.8 mg/dL (8.5-10.1); CREATININE 0.4 mg/dL (0.55-1.3); POTASSIUM 3.6 mmol/L (3.5-5.1)
[2020-03-09] MEDS ORDERED: MULTIVIT-MINERALS ORAL LIQUID GT SCH ×2 (10:00)
[2020-03-09] MEDS ORDERED: PANTOPRAZOLE SOD 40 MG SUSPENSION PACKET PO SCH (10:00)
[2020-03-09] MEDS: ESCITALOPRAM OXALATE 5 MG/5 ML GT SCH (11:03)
[2020-03-09] MEDS: FAMOTIDINE 20 MG/50 ML IVPB 20 MG/50 ML MG IVPB SCH ×2 (11:05→21:49)
[2020-03-09] MEDS: HEPARIN NA (PORCINE) 5,000 UNITS/ML 1ML VIAL SQ SCH ×2 (11:06→21:49)
[2020-03-09] MEDS: METOPROLOL TARTRATE 5 MG/5 ML VIAL IVPUSH PRN ×2 (12:16→22:04)
--- NOTE | 2020-03-09 13:17 | PN ---
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 (short form) - Note 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: more alert still with ngt currently on ventimask, comfortable Vital Signs Period Temp Pulse Resp BP Sys/Gregory Pulse Ox Last 24 Hr 97.5 F-99.1 F 58-65 20-20 151-190/70-87 100-100 cor-rrr lungs bilateral rhonchi abd soft,nt ext no edema CBC, BMP 03/09/20 08:15 03/09/20 08:15 Microbiology 03/06/20 01:40 Blood - Peripheral Venous Blood Culture - Preliminary NO GROWTH OBTAINED AFTER 72 HOURS, INCUBATION TO CONTINUE FOR 2 DAYS. 03/06/20 01:40 Blood - Peripheral Venous Blood Culture - Preliminary NO GROWTH OBTAINED AFTER 72 HOURS, INCUBATION TO CONTINUE FOR 2 DAYS. 03/05/20 11:30 Sputum - Expectorated Gram Stain - Final 03/05/20 11:30 Sputum - Expectorated Sputum Culture - Final Yeast Like Organism 03/01/20 20:30 Blood - Peripheral Venous Blood Culture - Final NO GROWTH AFTER 5 DAYS INCUBATION 03/01/20 20:30 Blood - Peripheral Venous Blood Culture - Final NO GROWTH AFTER 5 DAYS INCUBATION 03/05/20 11:30 Nares - Right Nares MRSA Screen - Final NO MRSA ISOLATED 03/05/20 11:30 Nares - Left Nares MRSA Screen - Final NO MRSA ISOLATED 02/21/20 04:16 Urine - Urine Clean Catch Urine Culture - Final Normal Urogenital Holli a/p suspected aspiration pneumonia- ngt pulled out repeatedly by patient aspiration precautions continue zosyn day #4 for IR placement of GT on Saturday s/p CVA Problem List - Problems (1) Leukocytosis Code(s): D72.829 - ELEVATED WHITE BLOOD CELL COUNT, UNSPECIFIED (2) Aspiration pneumonia Code(s): J69.0 - PNEUMONITIS DUE TO INHALATION OF FOOD AND VOMIT (3) Cerebrovascular accident (CVA) Code(s): I63.9 - CEREBRAL INFARCTION, UNSPECIFIED Qualifiers: CVA mechanism: unspecified Qualified Code(s): I63.9 - Cerebral infarction, unspecified (4) Diabetes Code(s): E11.9 - TYPE 2 DIABETES MELLITUS WITHOUT COMPLICATIONS Qualifiers: Diabetes mellitus type: type 2
--- NOTE | 2020-03-09 14:39 | PN ---
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 (short form) - Note 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: PULMONARY CONSULTATION DICTATED 03/09/20 IMP DYSPNEA/CONGESTION LLL PNEUMONIA LIKELY ASPIRATION S/P CVA DM HTN HLD ANEMIA PLAN SUPPLEMENTAL O2 INHALED BRONCHODILATORS ABX ASPIRATION PRECAUTIONS F/U CHEST X-RAYS Problem List - Problems (1) Aspiration pneumonia Code(s): J69.0 - PNEUMONITIS DUE TO INHALATION OF FOOD AND VOMIT (2) Cerebrovascular accident (CVA) Code(s): I63.9 - CEREBRAL INFARCTION, UNSPECIFIED Qualifiers: CVA mechanism: unspecified Qualified Code(s): I63.9 - Cerebral infarction, unspecified (3) Diabetes Code(s): E11.9 - TYPE 2 DIABETES MELLITUS WITHOUT COMPLICATIONS Qualifiers: Diabetes mellitus type: type 2 (4) Facial droop Code(s): R29.810 - FACIAL WEAKNESS (5) Hypertension Code(s): I10 - ESSENTIAL (PRIMARY) HYPERTENSION
--- NOTE | 2020-03-09 17:27 | CONS ---
DATE OF CONSULTATION: 03/09/2020 PULMONARY CONSULTATION REFERRING PHYSICIAN: Emma Payne MD. HISTORY OF PRESENT ILLNESS: The patient is a 59-year-old female with past medical history of diabetes, recent CVA in August 2019, did a bout of rehabilitation but was readmitted on February 20 with dizziness and left facial droop. Workup revealed acute left cerebellar CVA. The patient was noted to on admission to have cough with eating only. She underwent a modified , revealed silent aspiration. Of note is the patient was having increasing cough and chest congestion. Chest x-ray performed revealed left lower lobe infiltrate. She was evaluated by Dr. Arboleda for infectious disease and placed on antibiotic therapy for likely aspiration pneumonia. She was also placed on supplemental O2. The patient likely scheduled for a GT insertion with IR. PAST MEDICAL HISTORY: Again includes diabetes as well as CVA and hypertension. REVIEW OF SYSTEMS: No cough. No chest pain. No palpitations. Currently no shortness of breath. CURRENT MEDICATIONS: Include: 1. Tylenol. 2. Oral solution. 3. Piperacillin. 4. Heparin. 5. Lexapro. 6. DuoNeb. 7. Lopressor. 8. Pepcid. 9. NovoLog. 10. Levemir. PHYSICAL EXAMINATION: General: The patient is a well-developed, well-nourished female, awake, on Ventimask. Her current saturation is 100%. Vital Signs: Blood pressure 154/76, respiratory rate 20, heart rate is 60. HEENT: Normocephalic, atraumatic. Neck: Supple. Heart: Regular S1, S2. Chest: A few scattered rhonchi. Abdomen: Soft, bowel sounds positive. Extremities: No cyanosis, edema. LABORATORY: WBC 10.6, hemoglobin 10.5, hematocrit 31.5, platelet count of 303,000. Chemistries: BUN 18, creatinine 0.4, COVID negative. Chest x-ray left lower lobe infiltrate. IMPRESSION: 1. Dyspnea, congestion secondary to left lower lobe pneumonia, likely aspiration. 2. Status post cerebrovascular accident. 3. Diabetes. 4. Hypertension. 5. Hyperlipidemia. 6. Anemia. PLAN: Supplemental O2, inhaled bronchodilators, antibiotic therapy, aspiration precautions, followup chest x-rays. RAMANA WAN M.D. [id number]
[2020-03-10] MEDS ORDERED: PIPERACILLIN/TAZOBACTAM 4.5 GM VIAL IVPB ONE ×3 (01:42→17:22)
[2020-03-10] MEDS ORDERED: DEXTROSE 5%-WATER 100 ML IVPB ONE ×3 (01:43→17:23)
[2020-03-10] MEDS: PIPERACILLIN/TAZOB 4.5 GM 4.5 GM in DEXTROSE 5%-WATER 100 ML IVPB SCH ×3 (01:45→17:29)
[2020-03-10] MEDS: INSULIN SLIDING SCALE (NOVOLOG) 1 VIAL SQ SCH ×4 (06:25→21:35)
[2020-03-10] MEDS: INSULIN (LEVEMIR) 100 UNITS/ML UNITS SQ SCH (06:28)
[2020-03-10] MEDS: ALBUTEROL SO4 2.5/IPRATROPIUM 0.5 INH SOL 3 ML VIAL.NEB. NEB SCH ×4 (07:25→19:49)
[2020-03-10 08:11] LABS: BASO % 0.8 % (0-2.0); EOS % 1.7 % (0-4.5); HEMATOCRIT 31.2 % (32.4-45.2); HEMOGLOBIN 10.7 GM/dL (10.7-15.3); LYMPH % 27.2 % (8-40); MCH 28.9 pg (25.7-33.7); MCHC 34.4 g/dl (32.0-36.0); MEAN CELL VOLUME 84.2 fl (80-96); MEAN PLT VOLUME 8.2 fl (7.5-11.1); MONO % 6.9 % (3.8-10.2); NEUT % 63.4 % (42.8-82.8); PLATELET COUNT 299 K/MM3 (134-434); RDW 14.2 % (11.6-15.6); WHITE BLOOD COUNT 9.7 K/mm3 (4.0-10.0)
[2020-03-10 08:44] LABS: ALBUMIN 2.9 g/dl (3.4-5.0); BILIRUBIN,TOTAL 0.6 mg/dL (0.2-1); CREATININE 0.3 mg/dL (0.55-1.3); POTASSIUM 3.8 mmol/L (3.5-5.1); TOT PROT 6.2 g/dl (6.4-8.2)
[2020-03-10] MEDS: HEPARIN NA (PORCINE) 5,000 UNITS/ML 1ML VIAL SQ SCH ×2 (08:59→21:27)
[2020-03-10] MEDS: FAMOTIDINE 20 MG/50 ML IVPB 20 MG/50 ML MG IVPB SCH ×2 (09:02→21:27)
[2020-03-10] MEDS: ESCITALOPRAM OXALATE 5 MG/5 ML GT SCH (09:07)
--- NOTE | 2020-03-10 09:48 | PN ---
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, Physician Chief Complaint: ASLEEP NO ACUTE EVENTS OVERNIGHT PEG PLACEMENT TOMORROW - Current Medication List Current Medications: Active Medications Acetaminophen (Tylenol Oral Solution -) 650 mg GT Q4H PRN PRN Reason: FEVER Albuterol/Ipratropium (Duoneb -) 1 amp NEB RQID [facility] Last Admin: 03/10/20 07:25 Dose: 1 amp Documented by: Escitalopram Oxalate (Lexapro Oral Solution -) 10 mg GT DAILY [facility] Last Admin: 03/10/20 09:07 Dose: Not Given Documented by: Heparin Sodium (Porcine) (Heparin -) 5,000 unit SQ BID [facility] Last Admin: 03/10/20 08:59 Dose: Not Given Documented by: Piperacillin Sod/Tazobactam (Sod 4.5 gm/ Dextrose) 100 mls @ 200 mls/hr IVPB Q8H-IV [facility]; Protocol Last Admin: 03/10/20 01:45 Dose: 200 mls/hr Documented by: Famotidine/Sodium Chloride (Pepcid 20 Mg Premixed Ivpb -) 20 mg in 50 mls @ 100 mls/hr IVPB BID [facility] Last Admin: 03/10/20 09:02 Dose: 100 mls/hr Documented by: Insulin Aspart (Novolog Vial Sliding Scale -) 1 vial SQ ACHS [facility]; Protocol Last Admin: 03/10/20 06:25 Dose: Not Given Documented by: Insulin Detemir (Levemir Vial) 36 units SQ AM [facility] Last Admin: 03/10/20 06:28 Dose: 36 units Documented by: Metoprolol Tartrate (Lopressor Injection -) 5 mg IVPUSH Q4H PRN PRN Reason: HYPERTENSION Last Admin: 03/09/20 22:04 Dose: 5 mg Documented by: - Objective Vital Signs: Vital Signs Temperature 98.5 F 03/10/20 07:39 Pulse Rate 60 03/10/20 07:39 Respiratory Rate 20 03/10/20 07:39 Blood Pressure 178/87 H 03/10/20 07:39 O2 Sat by Pulse Oximetry (%) 90 L 03/10/20 07:39 Constitutional: Yes: Mild Distress Cardiovascular: Yes: Regular Rate and Rhythm Respiratory: Yes: On Nasal O2 Gastrointestinal: Yes: Soft Genitourinary: Yes: Incontinence Neurological: Yes: Pre-Existing Deficit, Weakness Labs: CBC, BMP 03/10/20 07:15 03/10/20 07:15 INR, PTT INR 1.05 (0.83-1.09) 02/21/20 02:45 Problem List - Problems (1) Aspiration pneumonia Code(s): J69.0 - PNEUMONITIS DUE TO INHALATION OF FOOD AND VOMIT (2) Cerebrovascular accident (CVA) Code(s): I63.9 - CEREBRAL INFARCTION, UNSPECIFIED Qualifiers: CVA mechanism: unspecified Qualified Code(s): I63.9 - Cerebral infarction, unspecified (3) Diabetes Code(s): E11.9 - TYPE 2 DIABETES MELLITUS WITHOUT COMPLICATIONS Qualifiers: Diabetes mellitus type: type 2 (4) Dysphagia as late effect of cerebrovascular accident (CVA) Code(s): I69.391 - DYSPHAGIA FOLLOWING CEREBRAL INFARCTION (5) Electrolyte abnormality Code(s): E87.8 - OTH DISORDERS OF ELECTROLYTE AND FLUID BALANCE, NEC (6) Facial droop Code(s): R29.810 - FACIAL WEAKNESS (7) Hypertension Code(s): I10 - ESSENTIAL (PRIMARY) HYPERTENSION (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 LOPRESSOR PRN IVP FOR HTN
[2020-03-10] MEDS: METOPROLOL TARTRATE 5 MG/5 ML VIAL IVPUSH PRN (11:00)
--- NOTE | 2020-03-10 11:29 | PN ---
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 Patient is arleady on plavix and statin. She also have history of htn, [facility] for [facility]iness and facial droopiness. She describes dizziness as spinning sensation. Patent has ct head no acute findings. Ther eis left occipital infarct mri of brain showed left cerebellar peducnle stroke and right ica stenosis repeat ct scan stable GT tube can not be placed due to copmlications, planned by interventional radiology on saturday. patient is on ventimask and doing ok and going for g tube placement by interventional radiologist neurological examination Alert oriented x 2, speech is normal, neck is supple vss eomi, pupil reactive , left facial droopiness ? lmn type there is mild right arm weakness sensation is normal reflex are normal bilaterally ct head old left occpital stroke mri of brain showed there is left cerebellar peduncle ischemic lesion cta of neck showed there is right ica [address] head unremarkable, as patient has fall on february 21 vascular surgery consult no need for any surgery Assessment/Plan -1. left cebellar acute stroke , also have history of left occpital stroke - swallowing difficulty secondary to stroke,peg tube placement on saturday Plan:- - pending loop recording - peg tube placement ( plavix and apsirn on hold) on saturday( march 10) today - abx as per ID - on ventimask would continue to follow Tigre guerrero so much Osman Orozco MD
--- NOTE | 2020-03-10 13:14 | PN ---
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 (short form) - Note 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: PULMONARY Remains on ventimask, saturating well. For G tube placement Vital Signs Period Temp Pulse Resp BP Sys/Gregory Pulse Ox Last 24 Hr 97.6 F-98.5 F 60-66 20-20 150-196/72-93 40-100 Gen: mildly tachypneic Heart: RRR Lung: scattered rhonchi Abd: soft, nontender Ext: no edema CBC, BMP 03/10/20 07:15 03/10/20 07:15 Active Medications Acetaminophen (Tylenol Oral Solution -) 650 mg GT Q4H PRN PRN Reason: FEVER Albuterol/Ipratropium (Duoneb -) 1 amp NEB RQID [facility] Last Admin: 03/10/20 11:21 Dose: 1 amp Documented by: Escitalopram Oxalate (Lexapro Oral Solution -) 10 mg GT DAILY [facility] Last Admin: 03/10/20 09:07 Dose: Not Given Documented by: Heparin Sodium (Porcine) (Heparin -) 5,000 unit SQ BID [facility] Last Admin: 03/10/20 08:59 Dose: Not Given Documented by: Piperacillin Sod/Tazobactam (Sod 4.5 gm/ Dextrose) 100 mls @ 200 mls/hr IVPB Q8H-IV [facility]; Protocol Last Admin: 03/10/20 10:30 Dose: 200 mls/hr Documented by: Famotidine/Sodium Chloride (Pepcid 20 Mg Premixed Ivpb -) 20 mg in 50 mls @ 100 mls/hr IVPB BID [facility] Last Admin: 03/10/20 09:02 Dose: 100 mls/hr Documented by: Insulin Aspart (Novolog Vial Sliding Scale -) 1 vial SQ ACHS [facility]; Protocol Last Admin: 03/10/20 12:20 Dose: Not Given Documented by: Insulin Detemir (Levemir Vial) 36 units SQ AM [facility] Last Admin: 03/10/20 06:28 Dose: 36 units Documented by: Metoprolol Tartrate (Lopressor Injection -) 5 mg IVPUSH Q4H PRN PRN Reason: HYPERTENSION Last Admin: 03/10/20 11:00 Dose: 5 mg Documented by: A/P Pneumonia likely Aspiration Acute CVA HTN DM Hyperlipidemia Anemia - for G tube placement - continue antibiotics - O2 to keep SpO2 >90% - aspiration precautions - DVT prophylaxis
[2020-03-11] MEDS ORDERED: PIPERACILLIN/TAZOBACTAM 4.5 GM VIAL IVPB ONE ×3 (01:00→16:22)
[2020-03-11] MEDS ORDERED: DEXTROSE 5%-WATER 100 ML IVPB ONE ×3 (01:00→16:22)
[2020-03-11] MEDS: PIPERACILLIN/TAZOB 4.5 GM 4.5 GM in DEXTROSE 5%-WATER 100 ML IVPB SCH ×3 (01:04→17:49)
[2020-03-11] MEDS: METOPROLOL TARTRATE 5 MG/5 ML VIAL IVPUSH PRN (01:57)
[2020-03-11] MEDS: INSULIN (LEVEMIR) 100 UNITS/ML UNITS SQ SCH (06:47)
[2020-03-11] MEDS: INSULIN SLIDING SCALE (NOVOLOG) 1 VIAL SQ SCH ×4 (06:48→23:02)
[2020-03-11] MEDS ORDERED: METOPROLOL TARTRATE 5 MG/5 ML VIAL IVPB PRN (08:03)
[2020-03-11] MEDS: ALBUTEROL SO4 2.5/IPRATROPIUM 0.5 INH SOL 3 ML VIAL.NEB. NEB SCH ×4 (08:05→20:00)
[2020-03-11] MEDS: ESCITALOPRAM OXALATE 5 MG/5 ML GT SCH (10:47)
[2020-03-11] MEDS: HEPARIN NA (PORCINE) 5,000 UNITS/ML 1ML VIAL SQ SCH ×2 (10:47→23:02)
[2020-03-11] MEDS ORDERED: PT OWN MED DRAWER 7, Y5N ONE ×2 (10:50→21:13)
[2020-03-11] MEDS: FAMOTIDINE 20 MG/50 ML IVPB 20 MG/50 ML MG IVPB SCH (10:55)
--- NOTE | 2020-03-11 10:55 | PN ---
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, Physician Chief Complaint: STARTING GTUBE FEEDS STILL NONVERBAL NAD - Current Medication List Current Medications: Active Medications Acetaminophen (Tylenol Oral Solution -) 650 mg GT Q4H PRN PRN Reason: FEVER Albuterol/Ipratropium (Duoneb -) 1 amp NEB RQID [facility] Last Admin: 03/11/20 08:05 Dose: 1 amp Documented by: Escitalopram Oxalate (Lexapro Oral Solution -) 10 mg GT DAILY [facility] Last Admin: 03/10/20 09:07 Dose: Not Given Documented by: Heparin Sodium (Porcine) (Heparin -) 5,000 unit SQ BID [facility] Last Admin: 03/10/20 21:27 Dose: 5,000 unit Documented by: Piperacillin Sod/Tazobactam (Sod 4.5 gm/ Dextrose) 100 mls @ 200 mls/hr IVPB Q8H-IV [facility]; Protocol Last Admin: 03/11/20 01:04 Dose: 200 mls/hr Documented by: Famotidine/Sodium Chloride (Pepcid 20 Mg Premixed Ivpb -) 20 mg in 50 mls @ 100 mls/hr IVPB BID [facility] Last Admin: 03/10/20 21:27 Dose: 100 mls/hr Documented by: Insulin Aspart (Novolog Vial Sliding Scale -) 1 vial SQ ACHS [facility]; Protocol Last Admin: 03/11/20 06:48 Dose: 2 units Documented by: Insulin Detemir (Levemir Vial) 36 units SQ AM [facility] Last Admin: 03/11/20 06:47 Dose: 36 units Documented by: Metoprolol Tartrate (Lopressor Injection -) 5 mg IVPB Q4H PRN PRN Reason: HYPERTENSION - Objective Vital Signs: Vital Signs Temperature 98.5 F 03/11/20 05:57 Pulse Rate 63 03/11/20 05:57 Respiratory Rate 20 03/11/20 05:57 Blood Pressure 166/82 03/11/20 05:57 O2 Sat by Pulse Oximetry (%) 100 03/11/20 06:00 Constitutional: Yes: Mild Distress Cardiovascular: Yes: Pulse Irregular Respiratory: Yes: Diminished Gastrointestinal: Yes: Soft (PEG PLACED) Genitourinary: Yes: Incontinence Musculoskeletal: Yes: Muscle Weakness Neurological: Yes: Pre-Existing Deficit Labs: CBC, BMP 03/10/20 07:15 03/10/20 07:15 INR, PTT INR 1.05 (0.83-1.09) 02/21/20 02:45 Problem List - Problems (1) Aspiration pneumonia Code(s): J69.0 - PNEUMONITIS DUE TO INHALATION OF FOOD AND VOMIT (2) Cerebrovascular accident (CVA) Code(s): I63.9 - CEREBRAL INFARCTION, UNSPECIFIED Qualifiers: CVA mechanism: unspecified Qualified Code(s): I63.9 - Cerebral infarction, unspecified (3) Diabetes Code(s): E11.9 - TYPE 2 DIABETES MELLITUS WITHOUT COMPLICATIONS Qualifiers: Diabetes mellitus type: type 2 (4) Dysphagia as late effect of cerebrovascular accident (CVA) Code(s): I69.391 - DYSPHAGIA FOLLOWING CEREBRAL INFARCTION (5) Electrolyte abnormality Code(s): E87.8 - OTH DISORDERS OF ELECTROLYTE AND FLUID BALANCE, NEC (6) Facial droop Code(s): R29.810 - FACIAL WEAKNESS (7) Hypertension Code(s): I10 - ESSENTIAL (PRIMARY) HYPERTENSION (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
--- NOTE | 2020-03-11 11:57 | PN ---
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 (short form) - Note 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: PULMONARY V/M O2 WRIST RESTRAINTS/MITTENS/G-TUBE/MEJIA VSS/AFEBRILE/AWAKE/NONVERBAL Gen: mildly tachypneic Heart: RRR Lung: scattered rhonchi Abd: soft, nontender Ext: no edema LABS/MEDS/NOTES/IMAGES REVIEWED A/P Pneumonia likely Aspiration Acute CVA HTN DM Hyperlipidemia Anemia - S/P G tube placement - continue antibiotics - O2 to keep SpO2 >90% - aspiration precautions - DVT prophylaxis - Enteral feeds /ABD.Xray OK \R TRAN CULP
--- NOTE | 2020-03-11 14:12 | PN ---
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 (short form) - Note 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: more alert s/p IR placed gt yesterday alert on nasal canulla Vital Signs Period Temp Pulse Resp BP Sys/Gregory Pulse Ox Last 24 Hr 97.7 F-98.6 F 62-69 20-24 162-186/58-98 96-100 cor-rrr lungs decreased bs at bases abd soft,nt +GT ext no edema CBC, BMP 03/10/20 07:15 03/10/20 07:15 Microbiology 03/06/20 01:40 Blood - Peripheral Venous Blood Culture - Final NO GROWTH AFTER 5 DAYS INCUBATION 03/06/20 01:40 Blood - Peripheral Venous Blood Culture - Final NO GROWTH AFTER 5 DAYS INCUBATION 03/05/20 11:30 Sputum - Expectorated Gram Stain - Final 03/05/20 11:30 Sputum - Expectorated Sputum Culture - Final Yeast Like Organism 03/01/20 20:30 Blood - Peripheral Venous Blood Culture - Final NO GROWTH AFTER 5 DAYS INCUBATION 03/01/20 20:30 Blood - Peripheral Venous Blood Culture - Final NO GROWTH AFTER 5 DAYS INCUBATION 03/05/20 11:30 Nares - Right Nares MRSA Screen - Final NO MRSA ISOLATED 03/05/20 11:30 Nares - Left Nares MRSA Screen - Final NO MRSA ISOLATED 02/21/20 04:16 Urine - Urine Clean Catch Urine Culture - Final Normal Urogenital Holli a/p suspected aspiration pneumonia- continue zosyn day #6 of 7 please d/c zosyn on Saturday s/p CVA Problem List - Problems (1) Leukocytosis Code(s): D72.829 - ELEVATED WHITE BLOOD CELL COUNT, UNSPECIFIED (2) Aspiration pneumonia Code(s): J69.0 - PNEUMONITIS DUE TO INHALATION OF FOOD AND VOMIT (3) Cerebrovascular accident (CVA) Code(s): I63.9 - CEREBRAL INFARCTION, UNSPECIFIED Qualifiers: CVA mechanism: unspecified Qualified Code(s): I63.9 - Cerebral infarction, unspecified (4) Diabetes Code(s): E11.9 - TYPE 2 DIABETES MELLITUS WITHOUT COMPLICATIONS Qualifiers: Diabetes mellitus type: type 2
[2020-03-11] MEDS ORDERED: ACETAMINOPHEN 650 MG/20.3 ML ORAL SOLUTION (CUPS) PEG PRN (14:54)
[2020-03-11] MEDS ORDERED: INSULIN (NOVOLOG) ASPART 100 UNITS/ML 10ML VIAL ONE (16:22)
--- NOTE | 2020-03-11 17:34 | PN ---
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 Patient is arleady on plavix and statin. She also have history of htn, [facility] and facial droopiness. She describes dizziness as spinning sensation. Patent has ct head no acute findings. Ther eis left occipital infarct mri of brain showed left cerebellar peducnle stroke and right ica stenosis repeat ct scan stable - she got g tube placed, and no new complain patient is on ventimask neurological examination Alert oriented x 2, speech is normal, neck is supple vss eomi, pupil reactive , left facial droopiness ? lmn type there is mild right arm weakness sensation is normal reflex are normal bilaterally ct head old left occpital stroke mri of brain showed there is left cerebellar peduncle ischemic lesion cta of neck showed there is right ica [address] head unremarkable, as patient has fall on february 21 vascular surgery consult no need for any surgery Assessment/Plan -1. left cebellar acute stroke , also have history of left occp ital stroke - swallowing difficulty secondary to stroke,peg tube placement on saturday Plan:- - pending loop recording - peg tube placement done on march 11 - abx as per ID - on ventimask would continue to follow Tigre guerrero so much Osman Orozco MD
[2020-03-11] MEDS: FAMOTIDINE 40 MG/5 ML ORAL SUSPENSION PO SCH (23:02)
[2020-03-11] MEDS: METOPROLOL TARTRATE 25 MG TABLET (FP) GT SCH (23:02)
[2020-03-12] MEDS ORDERED: DEXTROSE 5%-WATER 100 ML IVPB ONE ×3 (02:18→17:28)
[2020-03-12] MEDS ORDERED: PIPERACILLIN/TAZOBACTAM 4.5 GM VIAL IVPB ONE ×3 (02:18→17:28)
[2020-03-12] MEDS: PIPERACILLIN/TAZOB 4.5 GM 4.5 GM in DEXTROSE 5%-WATER 100 ML IVPB SCH ×3 (02:35→17:57)
[2020-03-12] MEDS: INSULIN SLIDING SCALE (NOVOLOG) 1 VIAL SQ SCH ×4 (07:09→22:46)
[2020-03-12] MEDS: CLOPIDOGREL BISULFATE 75 MG TABLET (FP) GT SCH (07:10)
[2020-03-12] MEDS: ALBUTEROL SO4 2.5/IPRATROPIUM 0.5 INH SOL 3 ML VIAL.NEB. NEB SCH ×4 (07:52→20:21)
[2020-03-12] MEDS: INSULIN (LEVEMIR) 100 UNITS/ML UNITS SQ SCH (10:57)
[2020-03-12] MEDS: LISINOPRIL 10 MG TABLET (FP) GT SCH (10:59)
[2020-03-12] MEDS: HEPARIN NA (PORCINE) 5,000 UNITS/ML 1ML VIAL SQ SCH ×2 (10:59→22:47)
[2020-03-12] MEDS: FAMOTIDINE 40 MG/5 ML ORAL SUSPENSION PO SCH ×2 (10:59→22:49)
[2020-03-12] MEDS: METOPROLOL TARTRATE 25 MG TABLET (FP) GT SCH ×2 (10:59→22:49)
[2020-03-12] MEDS: ESCITALOPRAM OXALATE 5 MG/5 ML PEG SCH (11:01)
[2020-03-12] MEDS: ASPIRIN 325 MG TABLET PEG SCH (11:02)
--- NOTE | 2020-03-12 12:35 | PN ---
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 (short form) - Note 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: PULMONARY Denies shortness of breath. Reports mild cough. Vital Signs Period Temp Pulse Resp BP Sys/Gregory Pulse Ox Last 24 Hr 98.2 F-98.6 F 59-62 20-22 140-162/63-78 96-99 Gen: NAD at rest Heart: RRR Lung: scattered rhonchi Abd: soft, nontender Ext: no edema CBC, BMP 03/10/20 07:15 03/10/20 07:15 Active Medications Acetaminophen (Tylenol Oral Solution -) 650 mg PEG Q4H PRN PRN Reason: FEVER Albuterol/Ipratropium (Duoneb -) 1 amp NEB RQID [facility] Last Admin: 03/12/20 12:14 Dose: 1 amp Documented by: Aspirin (Asa -) 325 mg PEG DAILY [facility] Last Admin: 03/12/20 11:02 Dose: 325 mg Documented by: Clopidogrel Bisulfate (Plavix -) 75 mg GT DAILY@0700 [facility] Last Admin: 03/12/20 07:10 Dose: 75 mg Documented by: Escitalopram Oxalate (Lexapro Oral Solution -) 10 mg PEG DAILY [facility] Last Admin: 03/12/20 11:01 Dose: 10 mg Documented by: Famotidine (Pepcid) 20 mg PO BID [facility] Last Admin: 03/12/20 10:59 Dose: 20 mg Documented by: Heparin Sodium (Porcine) (Heparin -) 5,000 unit SQ BID [facility] Last Admin: 03/12/20 10:59 Dose: 5,000 unit Documented by: Piperacillin Sod/Tazobactam (Sod 4.5 gm/ Dextrose) 100 mls @ 200 mls/hr IVPB Q8H-IV [facility]; Protocol Last Admin: 03/12/20 11:02 Dose: 200 mls/hr Documented by: Insulin Aspart (Novolog Vial Sliding Scale -) 1 vial SQ ACHS [facility]; Protocol Last Admin: 03/12/20 07:09 Dose: Not Given Documented by: Insulin Detemir (Levemir Vial) 36 units SQ AM [facility] Last Admin: 03/12/20 10:57 Dose: Not Given Documented by: Lisinopril (Prinivil) 10 mg GT DAILY [facility] Last Admin: 03/12/20 10:59 Dose: 10 mg Documented by: Metoprolol Tartrate (Lopressor Injection -) 5 mg IVPB Q4H PRN PRN Reason: HYPERTENSION Last Admin: 03/11/20 11:44 Dose: 5 mg Documented by: Metoprolol Tartrate (Lopressor -) 25 mg GT BID [facility] Last Admin: 03/12/20 10:59 Dose: 25 mg Documented by: A/P Pneumonia likely Aspiration Acute CVA HTN DM Hyperlipidemia Anemia - continue antibiotics - O2 to keep SpO2 >90% - enteral feeds - aspiration precautions - DVT prophylaxis
--- NOTE | 2020-03-12 13:44 | PN ---
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, Physician Chief Complaint: AWAKE MORE ALERT TOLERATING FEEDS - Current Medication List Current Medications: Active Medications Acetaminophen (Tylenol Oral Solution -) 650 mg PEG Q4H PRN PRN Reason: FEVER Albuterol/Ipratropium (Duoneb -) 1 amp NEB RQID [facility] Last Admin: 03/12/20 12:14 Dose: 1 amp Documented by: Aspirin (Asa -) 325 mg PEG DAILY [facility] Last Admin: 03/12/20 11:02 Dose: 325 mg Documented by: Clopidogrel Bisulfate (Plavix -) 75 mg GT DAILY@0700 [facility] Last Admin: 03/12/20 07:10 Dose: 75 mg Documented by: Escitalopram Oxalate (Lexapro Oral Solution -) 10 mg PEG DAILY [facility] Last Admin: 03/12/20 11:01 Dose: 10 mg Documented by: Famotidine (Pepcid) 20 mg PO BID [facility] Last Admin: 03/12/20 10:59 Dose: 20 mg Documented by: Heparin Sodium (Porcine) (Heparin -) 5,000 unit SQ BID [facility] Last Admin: 03/12/20 10:59 Dose: 5,000 unit Documented by: Piperacillin Sod/Tazobactam (Sod 4.5 gm/ Dextrose) 100 mls @ 200 mls/hr IVPB Q8H-IV [facility]; Protocol Last Admin: 03/12/20 11:02 Dose: 200 mls/hr Documented by: Insulin Aspart (Novolog Vial Sliding Scale -) 1 vial SQ ACHS [facility]; Protocol Last Admin: 03/12/20 12:40 Dose: 2 units Documented by: Insulin Detemir (Levemir Vial) 36 units SQ AM [facility] Last Admin: 03/12/20 10:57 Dose: Not Given Documented by: Lisinopril (Prinivil) 10 mg GT DAILY [facility] Last Admin: 03/12/20 10:59 Dose: 10 mg Documented by: Metoprolol Tartrate (Lopressor Injection -) 5 mg IVPB Q4H PRN PRN Reason: HYPERTENSION Last Admin: 03/11/20 11:44 Dose: 5 mg Documented by: Metoprolol Tartrate (Lopressor -) 25 mg GT BID [facility] Last Admin: 03/12/20 10:59 Dose: 25 mg Documented by: - Objective Vital Signs: Vital Signs Temperature 98.6 F 03/12/20 05:00 Pulse Rate 60 03/12/20 05:00 Respiratory Rate 03/12/20 05:00 Blood Pressure 146/74 03/12/20 05:00 O2 Sat by Pulse Oximetry (%) 99 03/12/20 06:00 Constitutional: Yes: Mild Distress Cardiovascular: Yes: Regular Rate and Rhythm Respiratory: Yes: Diminished Gastrointestinal: Yes: Soft, Other (GTUBE IN PLACE) Musculoskeletal: Yes: Muscle Weakness Neurological: Yes: Pre-Existing Deficit, Weakness Labs: CBC, BMP 03/10/20 07:15 03/10/20 07:15 INR, PTT INR 1.05 (0.83-1.09) 02/21/20 02:45 Problem List - Problems (1) Aspiration pneumonia Code(s): J69.0 - PNEUMONITIS DUE TO INHALATION OF FOOD AND VOMIT (2) Cerebrovascular accident (CVA) Code(s): I63.9 - CEREBRAL INFARCTION, UNSPECIFIED Qualifiers: CVA mechanism: unspecified Qualified Code(s): I63.9 - Cerebral infarction, unspecified (3) Diabetes Code(s): E11.9 - TYPE 2 DIABETES MELLITUS WITHOUT COMPLICATIONS Qualifiers: Diabetes mellitus type: type 2 (4) Dysphagia as late effect of cerebrovascular accident (CVA) Code(s): I69.391 - DYSPHAGIA FOLLOWING CEREBRAL INFARCTION (5) Electrolyte abnormality Code(s): E87.8 - OTH DISORDERS OF ELECTROLYTE AND FLUID BALANCE, NEC (6) Facial droop Code(s): R29.810 - FACIAL WEAKNESS (7) Hypertension Code(s): I10 - ESSENTIAL (PRIMARY) HYPERTENSION (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
[2020-03-12] MEDS ORDERED: PT OWN MED DRAWER 7, Y5N ONE (22:11)
[2020-03-13] MEDS ORDERED: DEXTROSE 5%-WATER 100 ML IVPB ONE ×3 (00:59→17:59)
[2020-03-13] MEDS ORDERED: PIPERACILLIN/TAZOBACTAM 4.5 GM VIAL IVPB ONE ×3 (00:59→17:59)
[2020-03-13] MEDS: PIPERACILLIN/TAZOB 4.5 GM 4.5 GM in DEXTROSE 5%-WATER 100 ML IVPB SCH ×3 (01:13→18:08)
[2020-03-13] MEDS: INSULIN (LEVEMIR) 100 UNITS/ML UNITS SQ SCH (06:02)
[2020-03-13] MEDS: INSULIN SLIDING SCALE (NOVOLOG) 1 VIAL SQ SCH ×4 (06:02→21:44)
[2020-03-13] MEDS: CLOPIDOGREL BISULFATE 75 MG TABLET (FP) GT SCH (06:03)
--- NOTE | 2020-03-13 07:34 | DS ---
Physical Examination Vital Signs: Vital Signs Temperature 98.5 F 03/13/20 06:00 Pulse Rate 62 03/13/20 06:00 Respiratory Rate 20 03/13/20 06:00 Blood Pressure 157/76 03/13/20 06:00 O2 Sat by Pulse Oximetry (%) 97 03/13/20 06:00 Constitutional: Yes: No Distress Eyes: Yes: WNL HENT: Yes: WNL Neck: Yes: WNL Cardiovascular: Yes: Regular Rate and Rhythm Respiratory: Yes: WNL Gastrointestinal: Yes: WNL Renal/: Yes: Incontinence Musculoskeletal: Yes: Muscle Weakness Neurological: Yes: Weakness Labs: CBC, BMP 03/10/20 07:15 03/10/20 07:15 Discharge Summary Problems reviewed: Yes Reason For Visit: CEREBROVASCULAR ACCIDENT Current Active Problems Aspiration pneumonia (Acute) Carotid stenosis (Acute) Cerebrovascular accident (CVA) (Acute) Diabetes (Acute) Dysphagia as late effect of cerebrovascular accident (CVA) (Acute) Electrolyte abnormality (Acute) Facial droop (Acute) Hypertension (Acute) Leukocytosis (Acute) Type 2 diabetes mellitus with diabetic neuropathic arthropathy (Acute) Urinary retention (Acute) Procedures: Principal: CT SCAN/GTUBE Hospital Course: ADMITTED CVA/ASPIRATION PNA GTUBE PLACED Plan of Treatment: REHAB -PT Condition: Stable - Instructions Diet, Activity, Other Instructions: SNF PLACEMENT POST CVA WITH ASPIRATION PNA, GTUBE PLACED Disposition: [facility] FACILITY - Home Medications Comprehensive Discharge Medication List: Ambulatory Orders Aspirin [ASA -] 81 mg PO DAILY 02/21/20 Atorvastatin Ca [Lipitor] 40 mg PO HS 02/21/20 Benztropine Mesylate 0.5 mg PO DAILY 02/21/20 Clopidogrel Bisulfate [Plavix -] 75 mg PO DAILY 02/21/20 Sertraline HCl 50 mg PO DAILY 02/21/20 Acetaminophen [Tylenol .Regular Strength -] 650 mg PO Q6H PRN tablet 03/01/20 Aspirin [ASA -] 325 mg PO DAILY tablet 03/01/20 Heparin - 5,000 unit SQ TID vial 03/01/20 Insulin (Levemir) [Levemir Vial] 30 units SQ AM units 03/01/20 Insulin Sliding Scale [Novolog Vial Sliding Scale -] 1 vial SQ ACHS units 03/01/20 Lisinopril [Prinivil] 20 mg PO DAILY tablet 03/01/20 Mirtazapine [Remeron -] 7.5 mg PO HS tablet 03/01/20 Multivitamins [Multivit ([facility] Formulary)] 1 tab PO DAILY tab 03/01/20 Pantoprazole Sodium [Protonix -] 40 mg PO DAILY tablet.ec 03/01/20 Sitagliptin Phosphate [Januvia -] 50 mg PO DAILY@0700 tablet 03/01/20 Tamsulosin HCl [Flomax -] 0.4 mg PO DAILY@0830 cap.er.24h 03/01/20 metFORMIN HCL [Glucophage -] 500 mg PO BID@0700,1630 tablet 03/01/20
[2020-03-13] MEDS: ALBUTEROL SO4 2.5/IPRATROPIUM 0.5 INH SOL 3 ML VIAL.NEB. NEB SCH ×4 (07:57→20:20)
[2020-03-13 08:01] LABS: HEMOGLOBIN 11.5 GM/dL (10.7-15.3); MCH 28.3 pg (25.7-33.7); MCHC 33.9 g/dl (32.0-36.0); MEAN CELL VOLUME 83.5 fl (80-96); MEAN PLT VOLUME 7.7 fl (7.5-11.1); PLATELET COUNT 406 K/MM3 (134-434); RBC 4.07 M/mm3 (3.60-5.2); RDW 14.2 % (11.6-15.6); WHITE BLOOD COUNT 12.3 K/mm3 (4.0-10.0)
[2020-03-13 08:14] LABS: ALBUMIN 3.1 g/dl (3.4-5.0); BILIRUBIN,TOTAL 0.3 mg/dL (0.2-1); CALCIUM 9.4 mg/dL (8.5-10.1); CREATININE 0.4 mg/dL (0.55-1.3); POTASSIUM 4.1 mmol/L (3.5-5.1); TOT PROT 6.7 g/dl (6.4-8.2)
[2020-03-13] MEDS: HEPARIN NA (PORCINE) 5,000 UNITS/ML 1ML VIAL SQ SCH ×2 (10:22→21:11)
[2020-03-13] MEDS: LISINOPRIL 10 MG TABLET (FP) GT SCH (10:23)
[2020-03-13] MEDS: METOPROLOL TARTRATE 25 MG TABLET (FP) GT SCH ×2 (10:23→21:12)
[2020-03-13] MEDS ORDERED: PT OWN MED DRAWER 7, Y5N ONE ×2 (10:57→20:51)
[2020-03-13] MEDS: FAMOTIDINE 40 MG/5 ML ORAL SUSPENSION PO SCH ×2 (11:11→21:12)
[2020-03-13] MEDS: ASPIRIN 325 MG TABLET PEG SCH (11:11)
[2020-03-13] MEDS: ESCITALOPRAM OXALATE 5 MG/5 ML PEG SCH (11:12)
--- NOTE | 2020-03-13 11:43 | PN ---
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 (short form) - Note 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: PULMONARY Denies shortness of breath. +nonproductive cough. No fevers recorded. Vital Signs Period Temp Pulse Resp BP Sys/Gregory Pulse Ox Last 24 Hr 98.0 F-98.9 F 61-68 18-20 144-157/74-80 97-100 Gen: NAD at rest Heart: RRR Lung: scattered rhonchi Abd: soft, nontender Ext: no edema CBC, BMP 03/13/20 06:55 03/13/20 06:55 Active Medications Acetaminophen (Tylenol Oral Solution -) 650 mg PEG Q4H PRN PRN Reason: FEVER Albuterol/Ipratropium (Duoneb -) 1 amp NEB RQID [facility] Last Admin: 03/13/20 11:14 Dose: 1 amp Documented by: Aspirin (Asa -) 325 mg PEG DAILY [facility] Last Admin: 03/13/20 11:11 Dose: 325 mg Documented by: Clopidogrel Bisulfate (Plavix -) 75 mg GT DAILY@0700 [facility] Last Admin: 03/13/20 06:03 Dose: 75 mg Documented by: Escitalopram Oxalate (Lexapro Oral Solution -) 10 mg PEG DAILY [facility] Last Admin: 03/13/20 11:12 Dose: 10 mg Documented by: Famotidine (Pepcid) 20 mg PO BID [facility] Last Admin: 03/13/20 11:11 Dose: 20 mg Documented by: Heparin Sodium (Porcine) (Heparin -) 5,000 unit SQ BID [facility] Last Admin: 03/13/20 10:22 Dose: 5,000 unit Documented by: Piperacillin Sod/Tazobactam (Sod 4.5 gm/ Dextrose) 100 mls @ 200 mls/hr IVPB Q8H-IV [facility]; Protocol Last Admin: 03/13/20 10:24 Dose: 200 mls/hr Documented by: Insulin Aspart (Novolog Vial Sliding Scale -) 1 vial SQ ACHS [facility]; Protocol Last Admin: 03/13/20 06:02 Dose: 4 units Documented by: Insulin Detemir (Levemir Vial) 36 units SQ AM [facility] Last Admin: 03/13/20 06:02 Dose: 36 units Documented by: Lisinopril (Prinivil) 10 mg GT DAILY [facility] Last Admin: 03/13/20 10:23 Dose: 10 mg Documented by: Metoprolol Tartrate (Lopressor Injection -) 5 mg IVPB Q4H PRN PRN Reason: HYPERTENSION Last Admin: 03/11/20 11:44 Dose: 5 mg Documented by: Metoprolol Tartrate (Lopressor -) 25 mg GT BID [facility] Last Admin: 03/13/20 10:23 Dose: 25 mg Documented by: A/P Pneumonia likely Aspiration Acute CVA HTN DM Hyperlipidemia Anemia - continue antibiotics - O2 to keep SpO2 >90% - enteral feeds - aspiration precautions - DVT prophylaxis
[2020-03-13] MEDS ORDERED: INSULIN (NOVOLOG) ASPART 100 UNITS/ML 10ML VIAL ONE (18:12)
[2020-03-14] MEDS ORDERED: DEXTROSE 5%-WATER 100 ML IVPB ONE ×3 (00:55→17:21)
[2020-03-14] MEDS ORDERED: PIPERACILLIN/TAZOBACTAM 4.5 GM VIAL IVPB ONE ×3 (00:55→17:21)
[2020-03-14] MEDS: PIPERACILLIN/TAZOB 4.5 GM 4.5 GM in DEXTROSE 5%-WATER 100 ML IVPB SCH ×3 (01:25→17:26)
[2020-03-14] MEDS: CLOPIDOGREL BISULFATE 75 MG TABLET (FP) GT SCH (06:10)
[2020-03-14] MEDS: INSULIN SLIDING SCALE (NOVOLOG) 1 VIAL SQ SCH ×4 (06:15→22:50)
[2020-03-14] MEDS: INSULIN (LEVEMIR) 100 UNITS/ML UNITS SQ SCH (06:16)
[2020-03-14] MEDS: ALBUTEROL SO4 2.5/IPRATROPIUM 0.5 INH SOL 3 ML VIAL.NEB. NEB SCH ×4 (07:45→19:50)
[2020-03-14] MEDS ORDERED: PT OWN MED DRAWER 7, Y5N ONE ×2 (08:56→22:37)
[2020-03-14] MEDS: ASPIRIN 325 MG TABLET PEG SCH (08:59)
[2020-03-14] MEDS: LISINOPRIL 10 MG TABLET (FP) GT SCH (08:59)
[2020-03-14] MEDS: METOPROLOL TARTRATE 25 MG TABLET (FP) GT SCH ×2 (08:59→22:40)
[2020-03-14] MEDS: ESCITALOPRAM OXALATE 5 MG/5 ML PEG SCH (09:00)
[2020-03-14] MEDS: FAMOTIDINE 40 MG/5 ML ORAL SUSPENSION PO SCH ×2 (09:00→22:40)
[2020-03-14] MEDS: HEPARIN NA (PORCINE) 5,000 UNITS/ML 1ML VIAL SQ SCH ×2 (09:08→22:40)
--- NOTE | 2020-03-14 10:39 | PN ---
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 Patient is arleady on plavix and statin. She also have history of htn, [facility] and facial droopiness. She describes dizziness as spinning sensation. Patent has ct head no acute findings. Ther eis left occipital infarct mri of brain showed left cerebellar peducnle stroke and right ica stenosis repeat ct scan stable - she got g tube placed, and no new complain , tolerating feed very well. no new complain. waiting for plaement patient is on ventimask neurological examination Alert oriented x 2, speech is normal, neck is supple vss eomi, pupil reactive , left facial droopiness ? lmn type there is mild right arm weakness sensation is normal reflex are normal bilaterally - neuro exam unchanged ct head old left occpital stroke mri of brain showed there is left cerebellar peduncle ischemic lesion cta of neck showed there is right ica [address] head unremarkable, as patient has fall on february 21 vascular surgery consult no need for any surgery Assessment/Plan -1. left cebellar acute stroke , also have history of left occpital stroke - swallowing difficulty secondary to stroke,peg tube placement on saturday Plan:- - pending loop recording - peg tube placement done on march 11, tolerating feed - abx as per ID - follow up outpatient would continue to follow Tigre guerrero so much Osman Orozco MD
--- NOTE | 2020-03-14 10:56 | DS ---
Physical Examination Vital Signs: Vital Signs Temperature 98.7 F 03/14/20 10:00 Pulse Rate 61 03/14/20 10:00 Respiratory Rate 20 03/14/20 10:00 Blood Pressure 124/70 03/14/20 10:00 O2 Sat by Pulse Oximetry (%) 94 L 03/14/20 10:00 Findings/Remarks: 59 year old female came to [facility] ER with cc of left facial droop, noted by her son. Upon evaluation, CT head C- showed old left occipital stroke, MRI brain C- showed left cerebellar peduncle ischemic lesion, CVTE of neck showed 70% stenosis of Right ICA. Pt was evaluated by Neurology Osman Sevilla MD. Pt was started on asa, plavix and statin. Pt was also evaluated by Vascular surgery Dr giuliano Sullivan MD who did not recommend any surgical intervention for Right ICA stenosis at this time. (1) Cerebrovascular accident (CVA) Assessment/Plan: -First CT Head on 02/21/20:Chronic left occipital cortical infarct as described above. A subtle punctate chronic left thalamic infarct is noted on the current study which cannot be definitely visualized on the prior exam. Punctate chronic right basal ganglia infarct as also seen on the previous exam. Mild periventricular chronic microvascular ischemic changes. -Repeat CT head 02/[id number]-[id number]/chronic infarct in the left occipital lobe is again seen. No gross CT evidence of acute intracranial pathology is identified. -ASA -Plavix -Statin -Seen by Neurology -MBS:There is risk of aspiration, dehydration, malnutrition due to impaired joao ngeal excursion, buildup in the piriform sinuses, recurrent aspiration. Swallo wing is somewhat functional but with clear risks at this time. I believe the more she swallows, the better his swallow will function. I suspect swallowing will improve and hope that patient will not develop a pneumonia and will achieve sufficient nutrition before this happens. Patient needs very close monitoring. -MRI brain 02/21:1.2 cm acute nonhemorrhagic infarction left cerebellar peduncle. Ischemic changes in the abdirahman and in the white matter of both cerebral hemispheres sequela most probably to long-standing hypertension or small vessel atherosclerosis. Old completed infarction left occipital lobe with residual encephalomalacia. Basilar artery and cavernous portions internal carotid arteries unremarkable. -CTA neck 02/20:Tiny plaque at the left common carotid bifurcation/bulb without evidence of hemodynamically significant stenosis Moderate size calcified plaque with hemodynamically significant stenosis at the right common carotid bifurcation with approximately 70% narrowing of its lumen Hypoplastic distal left vertebral artery that could be traced up to the level of C1 as it enters the spinal canal. Normal enhancement of the right vertebral artery without gross evidence of stenosis. Intracranially, there is persistent origin of the le ft posterior cerebral artery with s ignificantly attenuated/absence of enhancement of the P2 branches consistent with the known left occ ipital lobe chronic infarct Otherwise, no gross major artery cutoff, focal hemodynamically significant stenosis, aneurysm or vascular malformation is identified within the central intracranial arterial circulation. Problems reviewed: Yes Code(s): I63.9 - CEREBRAL INFARCTION, UNSPECIFIED Qualifiers: CVA mechanism: unspecified Qualified Code(s): I63.9 - Cerebral infarction, unspecified (2) Diabetes Assessment/Plan: -A1c at 9.3 -BGM AC HS -ISS -Levemir at 36 U in AM -Continue sitagliptin + metformin -Recheck A1c in 3 months, goal <7.0 -Endocrinology consult appreciated -Continue Glucerna TF -MBS can be repeated in 3 months to re-evaluate pt's swallowing ability Problems reviewed: Yes Code(s): E11.9 - TYPE 2 DIABETES MELLITUS WITHOUT COMPLICATIONS Qualifiers: Diabetes mellitus type: type 2 (3) Dysphagia as late effect of cerebrovascular accident (CVA) Assessment/Plan: -Seen by speech pathology -Added multivitamin + Remeron Problems reviewed: Yes Code(s): I69.391 - DYSPHAGIA FOLLOWING CEREBRAL INFARCTION (4) Carotid stenosis Assessment/Plan: -Seen by Vascular surgery -No surgical intervention recommended at this time Problems reviewed: Yes Code(s): I65.29 - OCCLUSION AND STENOSIS OF UNSPECIFIED CAROTID ARTERY (5) Hypertension Assessment/Plan: -Seen by cardiology -Increased lisinopril 20 mg po daily Problems reviewed: Yes Code(s): I10 - ESSENTIAL (PRIMARY) HYPERTENSION Constitutional: Yes: Well Nourished, No Distress, Calm Cardiovascular: Yes: Regular Rate and Rhythm Respiratory: Yes: Regular, CTA Bilaterally Gastrointestinal: Yes: Normal Bowel Sounds, Soft Renal/: Yes: WNL Musculoskeletal: Yes: Muscle Weakness Extremities: Yes: WNL Edema: No Peripheral Pulses WNL: Yes Neurological: Yes: Alert, Oriented (x2) Psychiatric: Yes: Alert, Oriented Labs: CBC, BMP 08/30/20 06:55 03/13/20 06:55 Discharge Summary Problems reviewed: Yes Reason For Visit: CEREBROVASCULAR ACCIDENT Current Active Problems Aspiration pneumonia (Acute) Carotid stenosis (Acute) Cerebrovascular accident (CVA) (Acute) Diabetes (Acute) Dysphagia as late effect of cerebrovascular accident (CVA) (Acute) Electrolyte abnormality (Acute) Facial droop (Acute) Hypertension (Acute) Leukocytosis (Acute) Type 2 diabetes mellitus with diabetic neuropathic arthropathy (Acute) Urinary retention (Acute) Hospital Course: ADMITTED CVA/ASPIRATION PNA GTUBE PLACED Plan of Treatment: REHAB -PT Condition: Stable - Instructions Diet, Activity, Other Instructions: SNF PLACEMENT POST CVA WITH ASPIRATION PNA, GTUBE PLACED Disposition: [facility] - Home Medications Comprehensive Discharge Medication List: Ambulatory Orders Atorvastatin Ca [Lipitor] 40 mg PO HS 02/21/20 Benztropine Mesylate 0.5 mg PO DAILY 02/21/20 Clopidogrel Bisulfate [Plavix -] 75 mg PO DAILY 02/21/20 Aspirin [ASA -] 325 mg PO DAILY tablet 03/01/20 Insulin Sliding Scale [Novolog Vial Sliding Scale -] 1 vial SQ ACHS units 03/01/20 Lisinopril [Prinivil] 20 mg PO DAILY tablet 03/01/20 Multivitamins [Multivit ([facility] Formulary)] 1 tab PO DAILY tab 03/01/20 Sitagliptin Phosphate [Januvia -] 50 mg PO DAILY@0700 tablet 03/01/20 Tamsulosin HCl [Flomax -] 0.4 mg PO DAILY@0830 cap.er.24h 03/01/20 metFORMIN HCL [Glucophage -] 500 mg PO BID@0700,1630 tablet 03/01/20 Albuterol 2.5/Ipratropium 0.5 [Duoneb -] 1 amp NEB RQID amp 03/13/20 Aspirin [ASA -] 325 mg PEG DAILY tablet 03/13/20 Clopidogrel Bisulfate [Plavix -] 75 mg GT DAILY@0700 tablet 03/13/20 Escitalopram Oxalate [Lexapro 5mg/5mL Oral Solution -] 10 mg PEG DAILY ml 03/13/20 Insulin (Levemir) [Levemir Vial] 36 units SQ AM units 03/13/20 Insulin Sliding Scale [Novolog Vial Sliding Scale -] 1 vial SQ ACHS units 03/13/20 Metoprolol Tartrate [Lopressor -] 25 mg GT BID tablet 03/13/20 Acetaminophen Oral Solution [Tylenol Oral Solution -] 650 mg PEG Q4H PRN #1 bot 03/14/20 Famotidine [Pepcid] 20 mg GT BID #1 bot 03/14/20 Prescription Drug Monitoring Program (I-STOP) results: I-STOP reviewed and no issues identified
[2020-03-14] MEDS ORDERED: INSULIN (NOVOLOG) ASPART 100 UNITS/ML 10ML VIAL ONE (11:17)
[2020-03-14] MEDS: sitaGLIPtin PHOSPHATE 50 MG TABLET PO SCH (11:56)
--- NOTE | 2020-03-14 13:56 | PN ---
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, SOFTWARE ENGINEER ADVISOR - Note 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: Selected Entries 03/14/20 03/14/20 03/14/20 05:39 08:00 09:00 Supper NPO Temperature 98.4 F Pulse Rate 60 O2 Sat by Pulse 96 95 95 Oximetry (%) Oxygen Delivery Room Air Room Air Method 03/14/20 10:00 Supper Temperature 98.7 F Pulse Rate 61 O2 Sat by Pulse 94 L Oximetry (%) Oxygen Delivery Method Laboratory Tests 03/13/20 06:55 WBC 12.3 H Awake and more verbal. Speech more precise. PEG in place, tolerating feedings. Up for d/c Continue sp/sw tx For repeat MBS, as indicated, as out pt.
--- NOTE | 2020-03-14 14:47 | PN ---
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 (short form) - Note 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: PULMONARY Denies shortness of breath. No fevers recorded. Vital Signs Period Temp Pulse Resp BP Sys/Gregory Pulse Ox Last 24 Hr 97.5 F-98.7 F 58-61 18-20 124-140/54-72 94-100 Gen: NAD at rest Heart: RRR Lung: scattered rhonchi Abd: soft, nontender Ext: no edema CBC, BMP 03/13/20 06:55 03/13/20 06:55 Active Medications Acetaminophen (Tylenol Oral Solution -) 650 mg PEG Q4H PRN PRN Reason: FEVER Albuterol/Ipratropium (Duoneb -) 1 amp NEB RQID [facility] Last Admin: 03/14/20 07:45 Dose: 1 amp Documented by: Aspirin (Asa -) 325 mg PEG DAILY [facility] Last Admin: 03/14/20 08:59 Dose: 325 mg Documented by: Clopidogrel Bisulfate (Plavix -) 75 mg GT DAILY@0700 [facility] Last Admin: 03/14/20 06:10 Dose: 75 mg Documented by: Escitalopram Oxalate (Lexapro Oral Solution -) 10 mg PEG DAILY [facility] Last Admin: 03/14/20 09:00 Dose: 10 mg Documented by: Famotidine (Pepcid) 20 mg PO BID [facility] Last Admin: 03/14/20 09:00 Dose: 20 mg Documented by: Heparin Sodium (Porcine) (Heparin -) 5,000 unit SQ BID [facility] Last Admin: 03/14/20 09:08 Dose: 5,000 unit Documented by: Piperacillin Sod/Tazobactam (Sod 4.5 gm/ Dextrose) 100 mls @ 200 mls/hr IVPB Q8H-IV [facility]; Protocol Last Admin: 03/14/20 08:59 Dose: 200 mls/hr Documented by: Insulin Aspart (Novolog Vial Sliding Scale -) 1 vial SQ ACHS [facility]; Protocol Last Admin: 03/14/20 11:22 Dose: 2 units Documented by: Insulin Detemir (Levemir Vial) 36 units SQ AM [facility] Last Admin: 03/14/20 06:16 Dose: 36 units Documented by: Lisinopril (Prinivil) 20 mg GT DAILY [facility] Metoprolol Tartrate (Lopressor Injection -) 5 mg IVPB Q4H PRN PRN Reason: HYPERTENSION Last Admin: 03/11/20 11:44 Dose: 5 mg Documented by: Metoprolol Tartrate (Lopressor -) 25 mg GT BID [facility] Last Admin: 03/14/20 08:59 Dose: 25 mg Documented by: Sitagliptin Phosphate (Januvia -) 50 mg PO DAILY@0700 [facility] Last Admin: 03/14/20 11:56 Dose: 50 mg Documented by: A/P Pneumonia likely Aspiration Acute CVA HTN DM Hyperlipidemia Anemia - continue antibiotics - O2 to keep SpO2 >90% - enteral feeds - aspiration precautions - DVT prophylaxis
--- NOTE | 2020-03-14 15:30 | PN ---
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 (short form) - Note 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: more alert no complaints Vital Signs Period Temp Pulse Resp BP Sys/Gregory Pulse Ox Last 24 Hr 97.3 F-98.7 F 58-66 18-20 124-152/54-72 94-97 cor-rrr lungs clear abd soft, +GT ext no edema CBC, BMP 03/13/20 06:55 03/13/20 06:55 Microbiology 03/06/20 01:40 Blood - Peripheral Venous Blood Culture - Final NO GROWTH AFTER 5 DAYS INCUBATION 03/06/20 01:40 Blood - Peripheral Venous Blood Culture - Final NO GROWTH AFTER 5 DAYS INCUBATION 03/05/20 11:30 Sputum - Expectorated Gram Stain - Final 03/05/20 11:30 Sputum - Expectorated Sputum Culture - Final Yeast Like Organism 03/01/20 20:30 Blood - Peripheral Venous Blood Culture - Final NO GROWTH AFTER 5 DAYS INCUBATION 03/01/20 20:30 Blood - Peripheral Venous Blood Culture - Final NO GROWTH AFTER 5 DAYS INCUBATION 03/05/20 11:30 Nares - Right Nares MRSA Screen - Final NO MRSA ISOLATED 03/05/20 11:30 Nares - Left Nares MRSA Screen - Final NO MRSA ISOLATED 02/21/20 04:16 Urine - Urine Clean Catch Urine Culture - Final Normal Urogenital Holli a/p suspected aspiration pneumonia- has completed 7 days of zosyn, will d/c and observe s/p IR GT placement s/p CVA Problem List - Problems (1) Leukocytosis Code(s): D72.829 - ELEVATED WHITE BLOOD CELL COUNT, UNSPECIFIED (2) Aspiration pneumonia Code(s): J69.0 - PNEUMONITIS DUE TO INHALATION OF FOOD AND VOMIT (3) Cerebrovascular accident (CVA) Code(s): I63.9 - CEREBRAL INFARCTION, UNSPECIFIED Qualifiers: CVA mechanism: unspecified Qualified Code(s): I63.9 - Cerebral infarction, unspecified (4) Diabetes Code(s): E11.9 - TYPE 2 DIABETES MELLITUS WITHOUT COMPLICATIONS Qualifiers: Diabetes mellitus type: type 2
[2020-03-15] MEDS: CLOPIDOGREL BISULFATE 75 MG TABLET (FP) GT SCH (06:47)
[2020-03-15] MEDS: sitaGLIPtin PHOSPHATE 50 MG TABLET PO SCH (06:47)
[2020-03-15] MEDS: INSULIN (LEVEMIR) 100 UNITS/ML UNITS SQ SCH (06:47)
[2020-03-15] MEDS: INSULIN SLIDING SCALE (NOVOLOG) 1 VIAL SQ SCH ×3 (06:48→17:32)
[2020-03-15] MEDS: ALBUTEROL SO4 2.5/IPRATROPIUM 0.5 INH SOL 3 ML VIAL.NEB. NEB SCH ×3 (07:58→15:48)
[2020-03-15] MEDS: HEPARIN NA (PORCINE) 5,000 UNITS/ML 1ML VIAL SQ SCH (09:29)
[2020-03-15] MEDS: FAMOTIDINE 40 MG/5 ML ORAL SUSPENSION PO SCH (09:29)
[2020-03-15] MEDS: METOPROLOL TARTRATE 25 MG TABLET (FP) GT SCH (09:29)
[2020-03-15] MEDS: ASPIRIN 325 MG TABLET PEG SCH (09:30)
[2020-03-15] MEDS: ESCITALOPRAM OXALATE 5 MG/5 ML PEG SCH (09:30)
[2020-03-15] MEDS ORDERED: PT OWN MED DRAWER 7, Y5N ONE (09:47)
--- NOTE | 2020-03-15 09:59 | DS ---
Physical Examination Vital Signs: Vital Signs Temperature 97.3 F L 03/15/20 07:41 Pulse Rate 62 03/15/20 07:41 Respiratory Rate 20 03/15/20 08:00 Blood Pressure 159/78 03/15/20 07:41 O2 Sat by Pulse Oximetry (%) 95 03/15/20 08:00 Findings/Remarks: 59 year old female came [facility] ER with cc of left facial droop, noted by her son. Upon evaluation, CT head C- showed old left occipital stroke, MRI brain C- showed left cerebellar peduncle ischemic lesion, CVTE of neck showed 70% stenosis of Right ICA. Pt was evaluated by Neurology Osman Sevilla MD. Pt was started on asa, plavix and statin. Pt was also evaluated by Vascular surgery Dr giuliano Sullivan MD who did not recommend any surgical intervention for Right ICA stenosis at this time. (1) Cerebrovascular accident (CVA) Assessment/Plan: -First CT Head on 02/21/20:Chronic left occipital cortical infarct as described above. A subtle punctate chronic left thalamic infarct is noted on the current study which cannot be definitely visualized on the prior exam. Punctate chronic right basal ganglia infarct as also seen on the previous exam. Mild periventricular chronic microvascular ischemic changes. -Repeat CT head 02/2539-82-Npirjdhqlrthhaha/chronic infarct in the left occipital lobe is again seen. No gross CT evidence of acute intracranial pathology is identified. -ASA -Plavix -Statin -Seen by Neurology -MBS:There is risk of aspiration, dehydration, malnutrition due to impaired joao ngeal excursion, buildup in the piriform sinuses, recurrent aspiration. Swallo wing is somewhat functional but with clear risks at this time. I believe the more she swallows, the better his swallow will function. I suspect swallowing will improve and hope that patient will not develop a pneumonia and will achieve sufficient nutrition before this happens. Patient needs very close monitoring. -MRI brain 02/21:1.2 cm acute nonhemorrhagic infarction left cerebellar peduncle. Ischemic changes in the abdirahman and in the white matter of both cerebral hemispheres sequela most probably to long-standing hypertension or small vessel atherosclerosis. Old completed infarction left occipital lobe with residual encephalomalacia. Basilar artery and cavernous portions internal carotid arteries unremarkable. -CTA neck 02/20:Tiny plaque at the left common carotid bifurcation/bulb without evidence of hemodynamically significant stenosis Moderate size calcified plaque with hemodynamically significant stenosis at the right common carotid bifurcation with approximately 70% narrowing of its lumen Hypoplastic distal left vertebral artery that could be traced up to the level of C1 as it enters the spinal canal. Normal enhancement of the right vertebral artery without gross evidence of stenosis. Intracranially, there is persistent origin of the le ft posterior cerebral artery with s ignificantly attenuated/absence of enhancement of the P2 branches consistent with the known left occ ipital lobe chronic infarct Otherwise, no gross major artery cutoff, focal hemodynamically significant stenosis, aneurysm or vascular malformation is identified within the central intracranial arterial circulation. Problems reviewed: Yes Code(s): I63.9 - CEREBRAL INFARCTION, UNSPECIFIED Qualifiers: CVA mechanism: unspecified Qualified Code(s): I63.9 - Cerebral infarction, unspecified (2) Diabetes Assessment/Plan: -A1c at 9.3 -BGM AC HS -ISS -Levemir at 36 U in AM -Continue sitagliptin + metformin -Recheck A1c in 3 months, goal <7.0 -Endocrinology consult appreciated -Continue Glucerna TF -MBS can be repeated in 3 months to re-evaluate pt's swallowing ability Problems reviewed: Yes Code(s): E11.9 - TYPE 2 DIABETES MELLITUS WITHOUT COMPLICATIONS Qualifiers: Diabetes mellitus type: type 2 (3) Dysphagia as late effect of cerebrovascular accident (CVA) Assessment/Plan: -Seen by speech pathology -Added multivitamin + Remeron Problems reviewed: Yes Code(s): I69.391 - DYSPHAGIA FOLLOWING CEREBRAL INFARCTION (4) Carotid stenosis Assessment/Plan: -Seen by Vascular surgery -No surgical intervention recommended at this time Problems reviewed: Yes Code(s): I65.29 - OCCLUSION AND STENOSIS OF UNSPECIFIED CAROTID ARTERY (5) Hypertension Assessment/Plan: -Seen by cardiology -Increased lisinopril 20 mg po daily Problems reviewed: Yes Code(s): I10 - ESSENTIAL (PRIMARY) HYPERTENSION Constitutional: Yes: Well Nourished, No Distress, Calm Cardiovascular: Yes: Regular Rate and Rhythm Respiratory: Yes: Regular, CTA Bilaterally Gastrointestinal: Yes: Normal Bowel Sounds, Soft Renal/: Yes: Damon Present Musculoskeletal: Yes: Muscle Weakness Extremities: Yes: WNL Edema: No Peripheral Pulses WNL: Yes Neurological: Yes: Alert, Oriented (x2) Psychiatric: Yes: Alert Labs: CBC, BMP 03/13/20 06:55 03/13/20 06:55 Discharge Summary Problems reviewed: Yes Reason For Visit: CEREBROVASCULAR ACCIDENT Current Active Problems Aspiration pneumonia (Acute) Carotid stenosis (Acute) Cerebrovascular accident (CVA) (Acute) Diabetes (Acute) Dysphagia as late effect of cerebrovascular accident (CVA) (Acute) Electrolyte abnormality (Acute) Facial droop (Acute) Hypertension (Acute) Leukocytosis (Acute) Type 2 diabetes mellitus with diabetic neuropathic arthropathy (Acute) Urinary retention (Acute) Hospital Course: ADMITTED CVA/ASPIRATION PNA GTUBE PLACED Plan of Treatment: REHAB -PT Condition: Stable - Instructions Disposition: CARE HOME FACILITY - Home Medications Comprehensive Discharge Medication List: Ambulatory Orders Atorvastatin Ca [Lipitor] 40 mg PO HS 02/21/20 Benztropine Mesylate 0.5 mg PO DAILY 02/21/20 Clopidogrel Bisulfate [Plavix -] 75 mg PO DAILY 02/21/20 Aspirin [ASA -] 325 mg PO DAILY tablet 03/01/20 Insulin Sliding Scale [Novolog Vial Sliding Scale -] 1 vial SQ ACHS units 03/01/20 Lisinopril [Prinivil] 20 mg PO DAILY tablet 03/01/20 Multivitamins [Multivit ([facility] Formulary)] 1 tab PO DAILY tab 03/01/20 Sitagliptin Phosphate [Januvia -] 50 mg PO DAILY@0700 tablet 03/01/20 Tamsulosin HCl [Flomax -] 0.4 mg PO DAILY@0830 cap.er.24h 03/01/20 metFORMIN HCL [Glucophage -] 500 mg PO BID@0700,1630 tablet 03/01/20 Albuterol 2.5/Ipratropium 0.5 [Duoneb -] 1 amp NEB RQID amp 03/13/20 Aspirin [ASA -] 325 mg PEG DAILY tablet 03/13/20 Clopidogrel Bisulfate [Plavix -] 75 mg GT DAILY@0700 tablet 03/13/20 Escitalopram Oxalate [Lexapro 5mg/5mL Oral Solution -] 10 mg PEG DAILY ml 03/13/20 Insulin (Levemir) [Levemir Vial] 36 units SQ AM units 03/13/20 Insulin Sliding Scale [Novolog Vial Sliding Scale -] 1 vial SQ ACHS units 03/13/20 Metoprolol Tartrate [Lopressor -] 25 mg GT BID tablet 03/13/20 Acetaminophen Oral Solution [Tylenol Oral Solution -] 650 mg PEG Q4H PRN #1 bot 03/14/20 Famotidine [Pepcid] 20 mg GT BID #1 bot 03/14/20 Prescription Drug Monitoring Program (I-STOP) results: I-STOP reviewed and no issues identified
[2020-03-15] MEDS ORDERED: LISINOPRIL 20 MG TABLET (FP) GT SCH (10:00)
[2020-03-15 15:07] VITALS: BP 151/80; PULSE 55; TEMP 98.2
--- NOTE | 2020-03-15 16:14 | PN ---
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 Patient is arleady on plavix and statin. She also have history of htn, [facility] and facial droopiness. She describes dizziness as spinning sensation. Patent has ct head no acute findings. Ther eis left occipital infarct mri of brain showed left cerebellar peducnle stroke and right ica stenosis repeat ct scan stable - she got g tube placed, and no new complain , tolerating feed very well. no new complain. waiting for plaement , no new complain. spoke to daughter at bedside. patient is on ventimask neurological examination Alert oriented x 2, speech is normal, neck is supple vss eomi, pupil reactive , left facial droopiness ? lmn type there is mild right arm weakness sensation is normal reflex are normal bilaterally - neuro exam unchanged ct head old left occpital stroke mri of brain showed there is left cerebellar peduncle ischemic lesion cta of neck showed there is right ica [address] head unremarkable, as patient has fall on february 21 vascular surgery consult no need for any surgery Assessment/Plan -1. left cebellar acute stroke , also have history of left occpital stroke - swallowing difficulty secondary to stroke,peg tube placement on saturday Plan:- - peg tube placement done on march 11, tolerating feed - abx as per ID - waiting to be discharged. would continue to follow Tigre guerrero so much Osman Orozco MD
== END 2020-03-15 17:58 | DRG 64 ==
LOC: JER 14:23 → JERBED 15:40 → J4W 21:46 → J8W 03-02 14:45 → UNDODISIN 03-15 16:38
PROVIDERS: ADMIT Internal Medicine; ATTEND Family Medicine
PROC: 0DB78ZX Excision of Stomach, Pylorus, Via Natural or Artificial Opening Endoscopic, Diagnostic (ICD-10-PCS; 2020-03-07)
PROC: 0DH63UZ Insertion of Feeding Device into Stomach, Percutaneous Approach (ICD-10-PCS; principal; 2020-03-10)
PROC: BD12YZZ Fluoroscopy of Stomach using Other Contrast (ICD-10-PCS; 2020-03-10)
DX: I63.231 Cerebral infarction due to unspecified occlusion or stenosis of right carotid arteries (principal); J69.0 Pneumonitis due to inhalation of food and vomit; I69.351 Hemiplegia and hemiparesis following cerebral infarction affecting right dominant side; H55.09 Other forms of nystagmus; I10 Essential (primary) hypertension; E78.5 Hyperlipidemia, unspecified; I69.392 Facial weakness following cerebral infarction; D72.829 Elevated white blood cell count, unspecified; F31.9 Bipolar disorder, unspecified; E87.8 Other disorders of electrolyte and fluid balance, not elsewhere classified; S00.03XA Contusion of scalp, initial encounter; I69.391 Dysphagia following cerebral infarction; R33.9 Retention of urine, unspecified; E11.610 Type 2 diabetes mellitus with diabetic neuropathic arthropathy; D64.9 Anemia, unspecified; E11.65 Type 2 diabetes mellitus with hyperglycemia; F32.9 Major depressive disorder, single episode, unspecified; R29.704 NIHSS score 4; K29.50 Unspecified chronic gastritis without bleeding; W06.XXXA Fall from bed, initial encounter; Y93.89 Activity, other specified; Y92.238 Other place in hospital as the place of occurrence of the external cause; Y99.9 Unspecified external cause status; G93.89 Other specified disorders of brain
CPT/HCPCS: 36415; 49440; 70450-TC; 70496-TC; 70498-TC; 70551-TC; 71045-TC-FY; 71046-TC-FY; 74018-TC-FY; 74230-TC-FY; 80048; 80053; 80061; 81003; 82550; 82962; 83036; 83721; 83735; 84443; 84484; 85025; 85027; 85610; 85730; 86850; 86900; 86901; 87040; 87070; 87077; 87081; 87086; 87205; 88305-TC; 92611-GN; 93005; 93010; 93306-TC; 94640; 97116-GP; 97161-GP; 99291; J0131; J1644; J2794; Q9967; U0003

== ENCOUNTER 2024-04-07 12:06 | Observation (INO) | payer OTHER ==
[2024-04-07 14:22] LABS: BASO % 0.7 % (0-2.0); EOS % 2.9 % (0-4.5); HEMATOCRIT 38.2 % (32.4-45.2); HEMOGLOBIN 12.2 GM/dL (10.7-15.3); LYMPH % 25.8 % (8-40); MCH 26.6 pg (25.7-33.7); MCHC 31.9 g/dl (32.0-36.0); MEAN CELL VOLUME 83.6 fl (80-96); MEAN PLT VOLUME 8.5 fl (7.5-11.1); MONO % 9.3 % (3.8-10.2); NEUT % 61.3 % (42.8-82.8); PLATELET COUNT 296 10^3/uL (134-434); RBC 4.57 M/mm3 (3.60-5.2); RDW 15.3 % (11.6-15.6); WHITE BLOOD COUNT 11.2 K/mm3 (4.0-10.0)
[2024-04-07 14:36] LABS: INR 0.98 (0.83-1.09); PROTHROMBIN TIME (PATIENT) 11.3 SEC (9.7-13.0)
[2024-04-07 14:48] LABS: POTASSIUM 4.4 mmol/L (3.5-5.1)
[2024-04-07 14:50] LABS: CALCIUM 10.2 mg/dL (8.5-10.1)
[2024-04-07 14:52] LABS: EPI CELLS 5 /uL (0-25.1); HYALINE CASTS 0 /uL (0-3.1); PH,URINE 6.5 (5.0-8.0); URINE APPEARANCE CLEAR; URINE BACTERIA >9,000 /uL (0-1359); URINE BILIRUBIN NEGATIVE (NEGATIVE); URINE COLOR YELLOW; URINE GLUCOSE (UA) 3+ (NEGATIVE); URINE KETONE NEGATIVE (NEGATIVE); URINE LEUK ESTERASE NEGATIVE (NEGATIVE); URINE NITRITE POSITIVE (NEGATIVE); URINE PROTEIN NEGATIVE (NEGATIVE); URINE RBC 8 /uL (0-23.9); URINE UROBILINOGEN 0.2 mg/dL (0.2-1.0); URINE WBC 34 /uL (0-25.8)
[2024-04-07 14:52] LABS: ALBUMIN 3.7 g/dl (3.4-5.0); BLOOD UREA NITROGEN 14.5 mg/dL (7-18)
[2024-04-07 14:54] LABS: CREATININE 0.7 mg/dL (0.55-1.3)
[2024-04-07 14:56] LABS: BILIRUBIN,TOTAL 0.4 mg/dL (0.2-1)
[2024-04-07] MEDS ORDERED: CEFTRIAXONE 1 GM/50 ML BAG ONE (15:21)
[2024-04-07] MEDS: CEFTRIAXONE 1,000 MG in DEXTROSE 5%-WATER - 50 ML IVPB ONE (15:27)
[2024-04-07] MEDS ORDERED: ACETAMINOPHEN INJECTION 100 ML ONE (15:55)
[2024-04-07] MEDS: ACETAMINOPHEN 1000 MG/100 ML BAG IVPB ONE (15:59)
[2024-04-07] MEDS ORDERED: ATORVASTATIN CA 40 MG TABLET (FP) ONE (22:29)
[2024-04-07] MEDS ORDERED: METOPROLOL TARTRATE 25 MG TABLET (FP) ONE (22:29)
[2024-04-07] MEDS ORDERED: ENOXAPARIN NA (PORCINE) 40 MG/0.4 ML DISP.SYRIN SQ ONE (22:30)
[2024-04-07] MEDS: ENOXAPARIN NA (PORCINE) 40 MG/0.4 ML DISP.SYRIN SQ SCH (22:37)
[2024-04-07] MEDS: INSULIN ASPART SLIDING SCALE (NOVOLOG) 1 VIAL SQ SCH (22:37)
[2024-04-07] MEDS: METOPROLOL TARTRATE 25 MG TABLET (FP) PO SCH (22:37)
[2024-04-07] MEDS: ATORVASTATIN CA 40 MG TABLET (FP) PO SCH (22:37)
[2024-04-08 07:40] LABS: HEMATOCRIT 37.5 % (32.4-45.2); HEMOGLOBIN 12.1 GM/dL (10.7-15.3); MCH 26.6 pg (25.7-33.7); MCHC 32.1 g/dl (32.0-36.0); MEAN CELL VOLUME 82.9 fl (80-96); MEAN PLT VOLUME 8.9 fl (7.5-11.1); PLATELET COUNT 273 10^3/uL (134-434); RBC 4.52 M/mm3 (3.60-5.2); RDW 15.1 % (11.6-15.6); WHITE BLOOD COUNT 12.1 K/mm3 (4.0-10.0)
[2024-04-08 08:00] LABS: POTASSIUM 4.1 mmol/L (3.5-5.1)
[2024-04-08 08:03] LABS: BLOOD UREA NITROGEN 16.1 mg/dL (7-18); MAGNESIUM 1.9 mg/dL (1.8-2.4)
[2024-04-08 08:07] LABS: CREATININE 0.5 mg/dL (0.55-1.3)
[2024-04-08 08:08] LABS: PHOSPHOROUS 4.3 mg/dL (2.5-4.9)
[2024-04-08] MEDS ORDERED: LISINOPRIL 20 MG TABLET ONE (12:24)
[2024-04-08] MEDS ORDERED: CLOPIDOGREL BISULFATE 75 MG TABLET (FP) ONE (12:24)
[2024-04-08] MEDS ORDERED: METOPROLOL TARTRATE 25 MG TABLET (FP) ONE (12:24)
[2024-04-08] MEDS ORDERED: ENOXAPARIN NA (PORCINE) 40 MG/0.4 ML DISP.SYRIN SQ ONE (12:25)
[2024-04-08] MEDS ORDERED: CEFTRIAXONE 1 GM/50 ML BAG ONE (12:29)
[2024-04-08] MEDS: LISINOPRIL 20 MG TABLET PO SCH (12:30)
[2024-04-08] MEDS: CLOPIDOGREL BISULFATE 75 MG TABLET (FP) PO SCH (12:30)
[2024-04-08] MEDS: CEFTRIAXONE 1,000 MG in DEXTROSE 5%-WATER - 50 ML IVPB SCH (12:30)
[2024-04-08] MEDS ORDERED: INSULIN (LEVEMIR) 100 UNITS/ML UNITS SQ ONE (12:31)
[2024-04-08] MEDS: INSULIN (LEVEMIR) 100 UNITS/ML UNITS SQ SCH (12:40)
[2024-04-08] MEDS ORDERED: INSULIN ASPART SLIDING SCALE (NOVOLOG) 1 VIAL SQ ONE ×2 (13:57→17:37)
[2024-04-08] MEDS: PNEUMOC 20-VAL CONJ-DIP CRM/PF 0.5 ML SYRINGE IM ONE (19:57)
[2024-04-08 20:50] VITALS: RESP 18
[2024-04-08 21:11] VITALS: BMI 26.9
[2024-04-09 10:43] LABS: BASO % 0.7 % (0-2.0); EOS % 2.6 % (0-4.5); HEMATOCRIT 36.1 % (32.4-45.2); MCHC 33.2 g/dl (32.0-36.0); MEAN CELL VOLUME 81.4 fl (80-96); MONO % 9.3 % (3.8-10.2); NEUT % 64.4 % (42.8-82.8); PLATELET COUNT 274 10^3/uL (134-434); RBC 4.44 M/mm3 (3.60-5.2); RDW 15.2 % (11.6-15.6); WHITE BLOOD COUNT 13.1 K/mm3 (4.0-10.0)
[2024-04-09 11:41] LABS: POTASSIUM 4.1 mmol/L (3.5-5.1)
[2024-04-09 11:55] LABS: ALBUMIN 3.6 g/dl (3.4-5.0); BLOOD UREA NITROGEN 22.3 mg/dL (7-18); CALCIUM 9.7 mg/dL (8.5-10.1)
[2024-04-09 11:58] LABS: CREATININE 0.5 mg/dL (0.55-1.3)
[2024-04-09 12:00] LABS: BILIRUBIN,TOTAL 0.4 mg/dL (0.2-1); TOT PROT 6.8 g/dl (6.4-8.2)
[2024-04-10 06:15] VITALS: BP 125/57; PULSE 63; TEMP 97.7
[2024-04-10 09:53] LABS: BASO % 0.9 % (0-2.0); EOS % 3.3 % (0-4.5); HEMATOCRIT 37.3 % (32.4-45.2); HEMOGLOBIN 11.9 GM/dL (10.7-15.3); LYMPH % 30.7 % (8-40); MCH 26.5 pg (25.7-33.7); MCHC 31.8 g/dl (32.0-36.0); MEAN CELL VOLUME 83.4 fl (80-96); MEAN PLT VOLUME 8.9 fl (7.5-11.1); MONO % 8.9 % (3.8-10.2); NEUT % 56.2 % (42.8-82.8); PLATELET COUNT 273 10^3/uL (134-434); RBC 4.48 M/mm3 (3.60-5.2); RDW 15.5 % (11.6-15.6)
== END 2024-04-10 13:55 | disposition home or self-care (01) ==
LOC: JER 12:06 → JERBED 17:50 → UNDOADMOB 17:50 → OBSVTOIN 19:45 → INTOOBSV 19:45 → JERBED 04-08 10:05 → J6W 04-08 20:46 → J6S 04-09 19:29
PROVIDERS: ADMIT Student in an Organized Health Care Education/Training Program; ATTEND Family Medicine
PROC: 3E0337Z Introduction of Electrolytic and Water Balance Substance into Peripheral Vein, Percutaneous Approach (ICD-10-PCS; principal; 2024-04-08)
PROC: 3E03329 Introduction of Other Anti-infective into Peripheral Vein, Percutaneous Approach (ICD-10-PCS; 2024-04-08)
PROC: 3E033NZ Introduction of Analgesics, Hypnotics, Sedatives into Peripheral Vein, Percutaneous Approach (ICD-10-PCS; 2024-04-08)
PROC: 3E023GC Introduction of Other Therapeutic Substance into Muscle, Percutaneous Approach (ICD-10-PCS; 2024-04-08)
PROC: 3E013VG Introduction of Insulin into Subcutaneous Tissue, Percutaneous Approach (ICD-10-PCS; 2024-04-08)
PROC: 3E023GC Introduction of Other Therapeutic Substance into Muscle, Percutaneous Approach (ICD-10-PCS; 2024-04-08)
DX: R82.71 Bacteriuria (principal); E11.610 Type 2 diabetes mellitus with diabetic neuropathic arthropathy; I69.354 Hemiplegia and hemiparesis following cerebral infarction affecting left non-dominant side; E78.5 Hyperlipidemia, unspecified; I10 Essential (primary) hypertension; E11.9 Type 2 diabetes mellitus without complications; Z79.01 Long term (current) use of anticoagulants; W18.39XA Other fall on same level, initial encounter; Y93.89 Activity, other specified; Y92.009 Unspecified place in unspecified non-institutional (private) residence as the place of occurrence of the external cause; Z23 Encounter for immunization
CPT/HCPCS: 36415; 70450-TC; 70551-TC; 71045-TC-FY; 72125-TC; 72170-TC-FY; 80048; 80053; 81003; 82550; 82607; 82962; 83735; 84100; 84443; 84484; 85025; 85027; 85610; 85730; 86780; 87040; 87086; 87186; 90677; 93005; 93010; 93306-TC; 96365; 96366; 96372; 96375; 97116-GP; 97162-GP; 99285-25; G0009; G0378; J0131

== ENCOUNTER 2024-08-28 10:07 | Emergency (ER) | payer OTHER ==
[2024-08-28 10:26] VITALS: BMI 29.2
[2024-08-28] MEDS ORDERED: ACETAMINOPHEN INJECTION 100 ML ONE (11:29)
[2024-08-28] MEDS ORDERED: FAMOTIDINE 20 MG/50 ML IVPB 20 MG/50 ML MG IVPB ONE (11:29)
[2024-08-28] MEDS: FAMOTIDINE 20 MG/50 ML IVPB 20 MG/50 ML MG IVPB ONE (11:58)
[2024-08-28] MEDS: LACTATED RINGERS SOLUTION 1000 ML INFUS.BAG IV ONE (11:58)
[2024-08-28] MEDS: ACETAMINOPHEN 1000 MG/100 ML BAG IVPB ONE (11:58)
[2024-08-28 12:00] LABS: BASO % 0.5 % (0-2.0); EOS % 2.1 % (0-4.5); HEMATOCRIT 37.4 % (32.4-45.2); LYMPH % 13.8 % (8-40); MCH 26.5 pg (25.7-33.7); MCHC 32.2 g/dl (32.0-36.0); MEAN CELL VOLUME 82.5 fl (80-96); MEAN PLT VOLUME 9.1 fl (7.5-11.1); MONO % 6.1 % (3.8-10.2); NEUT % 77.5 % (42.8-82.8); PLATELET COUNT 252 10^3/uL (134-434); RBC 4.53 M/mm3 (3.60-5.2); RDW 15.2 % (11.6-15.6); WHITE BLOOD COUNT 15.7 K/mm3 (4.0-10.0)
[2024-08-28 12:27] LABS: POTASSIUM 3.7 mmol/L (3.5-5.1)
[2024-08-28 12:30] LABS: ALBUMIN 3.6 g/dl (3.4-5.0); BLOOD UREA NITROGEN 8.7 mg/dL (7-18); CALCIUM 9.4 mg/dL (8.5-10.1); MAGNESIUM 1.4 mg/dL (1.8-2.4)
[2024-08-28 12:33] LABS: CREATININE 0.5 mg/dL (0.55-1.3)
[2024-08-28 12:35] LABS: BILIRUBIN,TOTAL 0.7 mg/dL (0.2-1); TOT PROT 7.1 g/dl (6.4-8.2)
[2024-08-28 14:26] VITALS: BP 138/65; PULSE 64; RESP 16; TEMP 97.8
== END 2024-08-28 15:07 | disposition home or self-care (01) ==
LOC: JER 10:07
PROC: 3E033GC Introduction of Other Therapeutic Substance into Peripheral Vein, Percutaneous Approach (ICD-10-PCS; principal; 2024-08-28)
PROC: 3E033NZ Introduction of Analgesics, Hypnotics, Sedatives into Peripheral Vein, Percutaneous Approach (ICD-10-PCS; 2024-08-28)
DX: R19.7 Diarrhea, unspecified (principal); R11.0 Nausea; B34.9 Viral infection, unspecified
CPT/HCPCS: 36415; 80053; 83690; 83735; 84484; 85025; 93005; 93010; 96365; 96375; 99284-25; J0131